=== PATIENT | female | born 1995 | race Caucasian/White ===

== ENCOUNTER 2018-08-04 11:47 | Emergency (ER) | payer SELFPAY ==
[2018-08-04 12:14] VITALS: TEMP 97.9; BMI 23.0
[2018-08-04] MEDS ORDERED: ACETAMINOPHEN 1000 MG/100 ML VIAL (NON FORMULARY) IVPB ONE (13:12)
[2018-08-04] MEDS ORDERED: SODIUM CHLORIDE 1,000 ML IV ONE (13:12)
[2018-08-04] MEDS ORDERED: METOCLOPRAMIDE HCL INJECTION 10 MG/2 ML VIAL IVPUSH ONE (13:12)
[2018-08-04] MEDS ORDERED: FAMOTIDINE 20 MG/50 ML IVPB 20 MG/50 ML MG IVPB ONE (13:24)
--- NOTE | 2018-08-04 13:33 | PDOC ---
History of Present Illness - General Chief Complaint: Nausea/Vomiting Stated Complaint: SYNCOPE ABD PAIN Time Seen by Provider: 08/04/18 12:10 - History of Present Illness Initial Comments: 08/04/18 13:27 22F w/ pmhx of chronic marijuana/opioid abuse presents with 5-6 day history of nausea, vomiting, abdominal pain. She admits to having at least 6 vomiting episodes over the past 5 days and passing out 3 times. She also admits to "15 out of 10" abdominal pain. Last BM was about 5 days ago. Pt states she usually takes 16- 10 mg tablets of Percocet a day and also smokes marijuana daily. She denies IV drug use. Of note, she recently went to [facility] twice this week for the same symptoms and was given Pepcid for her symptoms. She is also requesting to go to detox for opioid withdrawal. She has been to [facility] for detox in the past. Admits to chills, and cold sweats. Denies fever, headache, chest pain, sob, seizures, tongue biting. PMHx: gastritis, chronic marijuana/opioid user PSHx: buttock lift FHx: none Social: Tobacco- 4 cigarettes a day Alcohol- Last drink 1 month ago Rec Drug- As per HPI Pt lives at home alone in an apartment. Job: [employer] 08/04/18 13:33 08/04/18 13:36 Past History - Travel Traveled outside of the country in the last 30 days: No - Past Medical History Allergies/Adverse Reactions: Allergies Allergy/AdvReac Type Severity Reaction Status Date / Time No Known Allergies Allergy Verified 05/24/16 13:10 Home Medications: Ambulatory Orders NK [No Known Home Medication] 01/20/15 Anemia: No Asthma: No Cancer: No Cardiac Disorders: No CVA: No COPD: No CHF: No Diabetes: No GI Disorders: No Disorders: No HTN: No Hypercholesterolemia: No Kidney Stones: No Liver Disease: No Seizures: No Thyroid Disease: No - Surgical History Abdominal Surgery: No Appendectomy: No Cardiac Surgery: No Cholecystectomy: No Lung Surgery: No Neurologic Surgery: No Orthopedic Surgery: No - Reproductive History PID: No - Suicide/Smoking/Psychosocial Hx Smoking History: Never smoked Have you smoked in the past 12 months: Yes Number of Cigarettes Smoked Daily: 2 'Breaking Loose' booklet given: 05/24/16 Hx Alcohol Use: No Drug/Substance Use Hx: Yes (daily marijuana) Substance Use Type: Alcohol, Cocaine, Heroin, Marijuana, Opiates Hx Substance Use Treatment: No Review of Systems - Review of Systems Able to Perform ROS?: Yes Constitutional: Yes: Chills, Loss of Appetite. No: Fever, Unintentional Wgt. Loss Respiratory: No: Shortness of Breath, SOB with Exertion Cardiac (ROS): No: Chest Pain, Lightheadedness ABD/GI: Yes: Constipated, Nausea, Poor Appetite, Poor Fluid Intake, Vomiting, Abdominal cramping. No: Abdominal Distended, Blood Streaked Bowels, Diarrhea, Rectal Bleeding : No: Burning, Dysuria, Discharge, Hematuria, Incontinence Neurological: Yes: Headache, Dizziness Psychiatric: Yes: Anxiety, Depression *Physical Exam - Vital Signs Last Vital Signs Temp Pulse Resp BP Pulse Ox 97.9 F 80 16 112/76 99 08/04/18 12:11 08/04/18 12:11 08/04/18 12:11 08/04/18 12:11 08/04/18 12:11 - Physical Exam General Appearance: Yes: Nourished HEENT: positive: EOMI, STAR, Normal Voice, Symmetrical Neck: positive: Supple. negative: Lymphadenopathy (R), Lymphadenopathy (L) Respiratory/Chest: positive: Lungs Clear, Normal Breath Sounds Cardiovascular: positive: Regular Rhythm, Regular Rate, S1, S2 Vascular Pulses: Dorsalis-Pedis (R): 2+, Doralis-Pedis (L): 2+ Musculoskeletal: negative: CVA Tenderness Extremity: positive: Normal Range of Motion Integumentary: positive: Normal Color Neurologic: positive: operating system programmer II-XII NML intact, Fully Oriented, Alert ED Treatment Course - LABORATORY CBC & Chemistry Diagram: 08/04/18 14:00 08/04/18 14:00 Medical Decision Making - Medical Decision Making 08/04/18 13:42 Gastroparesis, ddx includes drug use, gastroenteritis, pancreatitis -CBC, CMP, Mg, lipase, b-HCG, EKG, NS @ 1L, Reglan, Tylenol, 08/04/18 13:44 08/04/18 16:05 -Lab work wnl -VS stable dispo -transfer to [facility] for opioid detox *DC/Admit/Observation/Transfer Diagnosis at time of Disposition: Opioid dependence with withdrawal - Discharge Dispostion Disposition: HOME Condition at time of disposition: Good - Referrals - Patient Instructions Printed Discharge Instructions: DI for Opioid Addiction Additional Instructions: You were seen in the ED for complaints of nausea, vomiting, abdominal pain. In the ED you were evaluated with opioid withdrawal. Your lab results were normal. There does not appear to be an acute need for immediate hospitalization. You are being sent to [facility] for opioid detox. You are advised to follow up with your primary care physician within 1 week. Return to the ED immediately if you experience persistent nausea, vomiting, fainting episodes, persistent shortness of breath, chest pain. - Post Discharge Activity
[2018-08-04 14:11] LABS: BASO % 0.3 % (0-2.0); HEMATOCRIT 41.2 % (32.4-45.2); LYMPH % 20.8 % (8-40); MCH 33.9 pg (25.7-33.7); MCHC 33.9 g/dl (32.0-36.0); MEAN CELL VOLUME 99.9 fl (80-96); MEAN PLT VOLUME 7.3 fl (7.5-11.1); MONO % 7.3 % (3.8-10.2); NEUT % 71.6 % (42.8-82.8); PLATELET COUNT 291 K/MM3 (134-434); RBC 4.12 M/mm3 (3.60-5.2); RDW 13.5 % (11.6-15.6); WHITE BLOOD COUNT 6.5 K/mm3 (4.0-10.0)
[2018-08-04] MEDS ORDERED: morphine CARPU-JECT 4 MG/1 ML DISP.SYRIN IVPUSH ONE (14:21)
--- NOTE | 2018-08-04 14:23 | PDOC ---
Attending Attestation - Resident Resident Name: Lizet Espino - ED Attending Attestation I have performed the following: I have examined & evaluated the patient, The case was reviewed & discussed with the resident, I agree w/resident's findings & plan - HPI HPI: 08/04/18 14:21 22-year-old female with history of substance abuse including opiates and marijuana presents with intractable nausea/vomiting and epigastric discomfort, inability to tolerate by mouth. Last Percocet use was this morning in the setting of withdrawal symptoms, last marijuana use was 3 or 4 days ago. Has had similar symptoms in the past, has had detox admissions in the past. - Physicial Exam PE: 08/04/18 14:22 Vitals within normal limits Alert, tearful No jaundice or pallor Heart is regular, lungs are clear Abdomen is soft and nondistended, epigastric tenderness to palpation without guarding or rebound Neurologically intact - Medical Decision Making 08/04/18 14:22 22-year-old female with history of polysubstance abuse presents with intractable nausea/vomiting/epigastric pain, question gastroparesis versus gastritis versus pancreatitis. No evidence of withdrawal at this time, hemodynamically stable. Labs, urinalysis IV fluids, antiemetics, pain control Requesting detox, if symptoms improved medically, we'll refer to [facility] 08/04/18 15:31 labs wnl, including lipase and electrolytes. feels better, no withdrawal sxs at this time, and tolerating liquids. will speak with [facility] re: admission.
[2018-08-04 14:46] LABS: ALBUMIN 3.9 g/dl (3.4-5.0); ALK PHOS 44 U/L (45-117); ANION GAP 8 MMOL/L (8-16); BILIRUBIN,TOTAL 0.8 mg/dL (0.2-1); BLOOD UREA NITROGEN 8 mg/dL (7-18); CALCIUM 8.7 mg/dL (8.5-10.1); CHLORIDE 110 mmol/L (98-107); CO2 24 mmol/L (21-32); CREATININE 0.5 mg/dL (0.55-1.3); GLUCOSE,RANDOM 101 mg/dL (74-106); LIPASE 149 U/L (73-393); POTASSIUM 3.7 mmol/L (3.5-5.1); SGOT/AST 11 U/L (15-37); SGPT/ALT 14 U/L (13-61); SODIUM 143 mmol/L (136-145); TOT PROT 6.7 g/dl (6.4-8.2)
[2018-08-04 15:10] LABS: URINE APPEARANCE CLOUDY; URINE BILIRUBIN NEGATIVE (<2.0 mg/dL); URINE COLOR YELLOW; URINE GLUCOSE (UA) NEGATIVE (NEGATIVE); URINE KETONE 1+ (NEGATIVE); URINE LEUK ESTERASE NEGATIVE (NEGATIVE); URINE NITRITE NEGATIVE (NEGATIVE); URINE PROTEIN NEGATIVE (NEGATIVE); URINE UROBILINOGEN NEGATIVE mg/dL (0.2-1.0)
[2018-08-04 15:38] LABS: EPI CELLS MANY /HPF (FEW); URINE MUCUS MODERATE
[2018-08-04 16:35] VITALS: BP 111/76; PULSE 68
== END 2018-08-04 16:26 | disposition home or self-care (01) ==
LOC: JER 11:47
PROC: 3E0337Z Introduction of Electrolytic and Water Balance Substance into Peripheral Vein, Percutaneous Approach (ICD-10-PCS; principal; 2018-08-04)
PROC: 3E033GC Introduction of Other Therapeutic Substance into Peripheral Vein, Percutaneous Approach (ICD-10-PCS; 2018-08-04)
PROC: 3E033GC Introduction of Other Therapeutic Substance into Peripheral Vein, Percutaneous Approach (ICD-10-PCS; 2018-08-04)
PROC: 3E033NZ Introduction of Analgesics, Hypnotics, Sedatives into Peripheral Vein, Percutaneous Approach (ICD-10-PCS; 2018-08-04)
PROC: 3E033NZ Introduction of Analgesics, Hypnotics, Sedatives into Peripheral Vein, Percutaneous Approach (ICD-10-PCS; 2018-08-04)
DX: F11.23 Opioid dependence with withdrawal (principal); F12.10 Cannabis abuse, uncomplicated; Z87.09 Personal history of other diseases of the respiratory system
CPT/HCPCS: 36415; 80053; 81003; 81015; 83690; 83735; 84703; 85025; 99281-25; J0131; J7030

== ENCOUNTER 2018-08-04 17:33 | Inpatient (IN) | payer OTHER ==
[2018-08-04 20:34] VITALS: BMI 22.6
--- NOTE | 2018-08-04 20:54 | HP ---
COWS - Scale Resting Pulse: 0= [place] 80 or Below Sweatin= Chills/Flushing Restless Observation: 3= Extraneous Movement Pupil Size: 0= Normal to Room Light Bone or Joint Aches: 2= Severe Diffuse Aches Runny Nose/ Eye Tearin= Nasal Congestion GI Upset > 30mins: 3= Vomiting/Diarrhea Tremor Observation: 1= Tremor [place], Not Seen Yawning Observation: 2= >3x During Session Anxiety or Irritability: 2=Irritable/Anxious Goose Flesh Skin: 3=Piloerection COWS Score: 18 Admission ROS [facility] Chief Complaint: WITHDRAWAL SYMPTOMS Allergies/Adverse Reactions: Allergies Allergy/AdvReac Type Severity Reaction Status Date / Time No Known Allergies Allergy Verified 05/24/16 13:10 History of Present Illness: 22 Y.O. WOMAN WITH AN EXTENSIVE HISTORY OF PERCOCET AND MARIJUANA DEPENDENCE IS HERE FOR DETOX. SHE HAS HAD MULTIPLE ADMISSIONS FOR DETOX WITH THE LAST BEING . DOES NOT HAVE A SIGNIFICANT PERIOD OF ILLICIT DRUG ABSTINENCE. SHE WAS EVALUATED EARLIER TODAY AT [facility] ER FOR INTRACTABLE NAUSEA AND VOMITING; SHE WAS MEDICALLY CLEARED FOR ADMISSION TO DETOX. Exam Limitations: No Limitations - Ebola screening Have you traveled outside of the country in the last 21 days: No Have you had contact with anyone from an Ebola affected area: No Have you been sick,other than usual withdrawal symptoms: No Do you have a fever: No - Review of Systems Constitutional: Chills, Loss of Appetite, Night Sweats, Unintentional Wgt. Loss EENT: reports: Tearing, Nose Congestion Respiratory: reports: No Symptoms reported Cardiac: reports: Lightheadedness GI: reports: Diarrhea, Nausea, Vomiting : reports: No Symptoms Reported Musculoskeletal: reports: No Symptoms Reported Integumentary: reports: No Symptoms Reported Neuro: reports: No Symptoms reported Endocrine: reports: No Symptoms Reported Hematology: reports: Anemia (H/O VLAD) Psychiatric: reports: Anxious, Depressed Other Systems: Reviewed and Negative Patient History - Patient Medical History Hx Anemia: No Hx Asthma: No Hx Chronic Obstructive Pulmonary Disease (COPD): No Hx Cancer: No Hx Cardiac Disorders: No Hx Congestive Heart Failure: No Hx Hypertension: No Hx Hypercholesterolemia: No Hx Pacemaker: No HX Cerebrovascular Accident: No Hx Seizures: No Hx Diabetes: No Hx Gastrointestinal Disorders: No Hx Liver Disease: No Hx Genitourinary Disorders: No Hx Sexually Transmitted Disorders: No Hx Renal Disease (ESRD): No Hx Thyroid Disease: No Hx Human Immunodeficiency Virus (HIV): No Hx Hepatitis C: No Hx Depression: No Hx Suicide Attempt: No Hx Bipolar Disorder: No Hx Schizophrenia: No - Patient Surgical History Past Surgical History: Yes Hx Neurologic Surgery: No Hx Cataract Extraction: No Hx Cardiac Surgery: No Hx Lung Surgery: No Hx Breast Surgery: No Hx Breast Biopsy: No Hx Abdominal Surgery: No Hx Appendectomy: No Hx Cholecystectomy: No Hx Genitourinary Surgery: No Hx Section: No Hx Orthopedic Surgery: No Other Surgical History: LIPOSUCTION TO ABDOMEN 2015 Anesthesia Reaction: No - PPD History Previous Implant?: Yes Documented Results: Negative w/proof Implanted On Prior R Admission?: Yes Date: 05/26/16 Results: 0 mm PPD to be Administered?: Yes - Reproductive History Patient is a Female of Child Bearing Age (11 -55 yrs old): Yes Last Menstrual Period: 05/09/16 Patient : No - Smoking Cessation Smoking history: Never smoked Have you smoked in the past 12 months: Yes Aproximately how many cigarettes per day: 8 Hx Chewing Tobacco Use: No Initiated information on smoking cessation: Yes 'Breaking Loose' booklet given: 08/04/18 - Substance & Tx. History Hx Alcohol Use: No Hx Substance Use: Yes Substance Use Type: Opiates Hx Substance Use Treatment: Yes (DETOX: 05/2016) - Substances Abused PERCOCET Route: Oral Frequency: Daily Amount used: 180MG Age of first use: 12 Date of Last Use: 08/03/18 Marijuana/Hashish Route: Inhalation Frequency: Daily Amount used: $100 Age of first use: 12 Date of Last Use: 08/02/18 Family Disease History - Family Disease History Family Disease History: Other: Sister (OPIOID ADDICTION) Admission Physical Exam BHS - Vital Signs Vital Signs: Vital Signs - 24 hr 08/04/18 20:31 Temperature 100.0 F H Pulse Rate 72 Respiratory 18 Rate Blood Pressure 109/69 - Physical General Appearance: Yes: Irritable, Anxious HEENTM: Yes: Hearing grossly Normal, Normal ENT Inspection, Normocephalic, Normal Voice, Rhinorrhea Respiratory: Yes: Chest Non-Tender, Lungs Clear, Normal Breath Sounds, No Respiratory Distress, No Accessory Muscle Use Neck: Yes: No masses,lesions,Nodules Breast: Yes: Breast Exam Deferred Cardiology: Yes: Regular Rhythm, Regular Rate Abdominal: Yes: Normal Bowel Sounds, Non Tender, Flat Genitourinary: Yes: Other (NO COMPLAINTS REPORTED) Back: Yes: Normal Inspection Musculoskeletal: Yes: full range of Motion, Gait Steady Extremities: Yes: Normal Capillary Refill, Normal Inspection, Normal Range of Motion, Non-Tender Neurological: Yes: Alert, Normal Mood/Affect, Normal Response Integumentary: Yes: Normal Color, Dry, Warm Lymphatic: Yes: Within Normal Limits - Diagnostic (1) GERD (gastroesophageal reflux disease) Current Visit: Yes Status: Acute (2) Gastritis Current Visit: Yes Status: Acute (3) Nausea & vomiting Current Visit: Yes Status: Acute (4) Cannabis dependence Current Visit: Yes Status: Chronic (5) Nicotine dependence Current Visit: Yes Status: Chronic Qualifiers: Nicotine product type: cigarettes Substance use status: uncomplicated Qualified Code(s): F17.210 - Nicotine dependence, cigarettes, uncomplicated (6) Opioid dependence with withdrawal Current Visit: Yes Status: Chronic Cleared for Admission [facility] - Detox or Rehab [facility] Level of Care: Medically Managed Detox Regimen/Protocol: Methadone [facility] Breath Alcohol Content Breath Alcohol Content: 0 Urine Pregancy Test - Result Urine Test Results: Negative- NO Line Present Urine Drug Screen - Results Drug Screen Negative: No Urine Drug Screen Results: THC-Marijuana, OPI-Opiates, OXY-Oxycodone
[2018-08-04] MEDS ORDERED: MAGNESIUM HYDROX 2400MG/30ML ORAL SUSPENSION 30 ML CUP PO PRN (21:01)
[2018-08-04] MEDS ORDERED: MAGNESIUM CITRATE 300 ML BOTTLE PO PRN (21:01)
[2018-08-04] MEDS ORDERED: guaiFENesin/D-METHORPHAN HB 10 ML UNIT-DOSE CUPS PO PRN (21:01)
[2018-08-04] MEDS ORDERED: ACETAMINOPHEN 325 MG TABLET (FP) PO PRN (21:01)
[2018-08-04] MEDS ORDERED: MAG HYDROX/AL HYDROX/SIMETH 30 ML UNIT-DOSE CUP PO PRN (21:01)
[2018-08-04] MEDS ORDERED: MENTHOL/PHENOL 1 EACH UD MM PRN (21:01)
[2018-08-04] MEDS ORDERED: NICOTINE POLACRILEX 2 MG GUM BC PRN (21:01)
[2018-08-04] MEDS ORDERED: IBUPROFEN 400 MG TABLET (FP) PO PRN (21:01)
[2018-08-04] MEDS ORDERED: P-EPHED 60MG/TRIPROLIDI 2.5MG TABLET PO PRN (21:01)
[2018-08-04] MEDS ORDERED: LOPERAMIDE HCL 2 MG CAPSULE PO PRN (21:01)
[2018-08-04] MEDS ORDERED: hydrOXYzine PAMOATE 50 MG CAPSULE (FP) PO PRN (21:01)
[2018-08-04] MEDS ORDERED: TRIMETHOBENZAMIDE HCL 200MG/2ML INJ IM ONE (21:04)
[2018-08-04] MEDS ORDERED: diphenhydrAMINE HCL 25 MG CAPSULE (FP) PO PRN (21:04)
[2018-08-04] MEDS ORDERED: TRIMETHOBENZAMIDE HCL 200MG/2ML INJ IM PRN (21:10)
[2018-08-04] MEDS ORDERED: METHADONE HCL 10 MG TABLET (FOR DETOX USE ONLY) PO ONE ×2 (21:30→23:00)
[2018-08-04] MEDS ORDERED: MELATONIN 5 MG TABLETS PO PRN (22:00)
[2018-08-04] MEDS: diazePAM 5 MG TABLET PO PRN (23:13)
[2018-08-04] MEDS: THIAMINE HCL 100 MG TABLET (FP) PO SCH (23:15)
[2018-08-05 00:35] LABS: URINE APPEARANCE SLCLOUDY; URINE BILIRUBIN NEGATIVE (<2.0 mg/dL); URINE COLOR LTYELLOW; URINE GLUCOSE (UA) NEGATIVE (NEGATIVE); URINE KETONE 1+ (NEGATIVE); URINE LEUK ESTERASE NEGATIVE (NEGATIVE); URINE NITRITE NEGATIVE (NEGATIVE); URINE PROTEIN NEGATIVE (NEGATIVE); URINE UROBILINOGEN NEGATIVE mg/dL (0.2-1.0)
[2018-08-05 00:40] LABS: EPI CELLS MODERATE /HPF (FEW); URINE BACTERIA RARE /hpf (NONE SEEN); URINE MUCUS RARE
[2018-08-05] MEDS: diazePAM 5 MG TABLET PO PRN ×2 (03:14→22:29)
--- NOTE | 2018-08-05 08:32 | CONSULT ---
[facility] Psychiatric Consult - Data Date of interview: 08/05/18 Admission source: [facility] Identifying data: This is a 22 years old female, single, living alone, unemployed, with no income, with no psychiatric hospitalization history, with history of Opioids and Cannabis dependence, reports withdrawal symptoms and seeking detox. Denies suicidal, homicidal history Substance Abuse History: - Smoking Cessation. Smoking history: Never smoked. Have you smoked in the past 12 months: Yes. Aproximately how many cigarettes per day: 8. Hx Chewing Tobacco Use: No. Initiated information on smoking cessation: Yes. 'Breaking Loose' booklet given: 08/04/18. - Substance & Tx. History. Hx Alcohol Use: No. Hx Substance Use: Yes. Substance Use Type: Opiates. Hx Substance Use Treatment: Yes (DETOX: 05/2016). - Substances Abused. PERCOCET. Route: Oral. Frequency: Daily. Amount used: 180MG. Age of first use: 12. Date of Last Use: 08/03/18. Marijuana/Hashish. Route : Inhalation. Frequency: Daily. Amount used: $100. Age of first use: 12. Date of Last Use: 08/02/18 Medical History: Denies significant medical problems Psychiatric History: Patioent reports hsitory of depression and anxiety, reports insomnia, denies suicidal and homicidal history , no psychiatric hospitalization history as well. Asking for medicastions aid for insomnia. Rep[ orts weight loss history Physical/Sexual Abuse/Trauma History: Unclear Additional Comment: Seroquel 50mg po qhs Mental Status Exam - Mental Status Exam Alert and Oriented to: Time, Person Cognitive Function: Fair Patient Appearance: Well Groomed Mood: Anxious Affect: Mood Congruent Patient Behavior: Cooperative Speech Pattern: Appropriate Voice Loudness: Normal Thought Process: Goal Oriented Thought Disorder: Not Present, Being Controlled Hallucinations: Denies Suicidal Ideation: Denies Homicidal Ideation: Denies Insight/Judgement: Fair Sleep: Difficulty falling asleep Appetite: Weight loss Muscle strength/Tone: Normal Gait/Station: Normal Additional Comments: Seroquel 50mg po qhs Psychiatric Findings - Problem List ([place] 1, 2,3) (1) Cannabis dependence Current Visit: Yes Status: Chronic (2) Nicotine dependence Current Visit: Yes Status: Chronic Qualifiers: Nicotine product type: cigarettes Substance use status: uncomplicated Qualified Code(s): F17.210 - Nicotine dependence, cigarettes, uncomplicated (3) Opioid dependence with withdrawal Current Visit: Yes Status: Chronic (4) Alcohol dependence with uncomplicated withdrawal Current Visit: No Status: Chronic (5) Opioid dependence Current Visit: No Status: Chronic (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
[2018-08-05] MEDS ORDERED: METHADONE HCL 10 MG TABLET (FOR DETOX USE ONLY) PO ONE (10:00)
[2018-08-05] MEDS ORDERED: ONDANSETRON *ODT* 4 MG TABLET SL PRN (10:09)
[2018-08-05] MEDS: PRENATAL VITAMINS W/ FOLIC ACID TABLET (FP) PO SCH (10:31)
[2018-08-05] MEDS: RANITIDINE HCL 150 MG TABLET (FP) PO SCH (10:31)
[2018-08-05] MEDS: NICOTINE 14 MG/24 HOURS TOPICAL PATCH TD SCH (10:32)
--- NOTE | 2018-08-05 11:19 | PN ---
BHS COWS - Scale Resting Pulse: 0= [place] 80 or Below Sweatin=Flushed/Facial Moisture Restless Observation: 1= Difficult to Sit Still Pupil Size: 0= Normal to Room Light Bone or Joint Aches: 1= Mild Discomfort Runny Nose/ Eye Tearin= Runny Nose/Eyes GI Upset > 30mins: 0= None Tremor Observation of Outstretched Hands: 2= Slight Tremor Visible Yawning Observation: 2= >3x During Session Anxiety or Irritability: 2=Irritable/Anxious Goose Flesh Skin: 0=Smooth Skin COWS Score: 12 BHS Progress Note (SOAP) Subjective: shakes sweats loss of appetite interrupted sleep agitation Objective: 08/05/18 11:19 Vital Signs Temperature 98.8 F 08/05/18 09:39 Pulse Rate 76 08/05/18 09:39 Respiratory Rate 18 08/05/18 09:39 Blood Pressure 115/72 08/05/18 09:39 O2 Sat by Pulse Oximetry (%) Laboratory Tests 08/04/18 23:08 Urine Color Ltyellow Urine Appearance Slcloudy Urine pH 6.0 Ur Specific [place] 1.017 Urine Protein Negative Urine Glucose (UA) Negative Urine Ketones 1+ H Urine Blood 2+ H Urine Nitrite Negative Urine Bilirubin Negative Urine Urobilinogen Negative Ur Leukocyte Esterase Negative Urine WBC (Auto) 1 Urine RBC (Auto) 2 Ur Epithelial Cells Moderate Urine Bacteria Rare Urine Mucus Rare pt states she has her menstruation rest of labs pending aaox3 ambulating no acute distress Assessment: 08/05/18 11:20 withdrawal sx Plan: continue detox increase fluids labs pending
[2018-08-05 14:19] LABS: HEMOGLOBIN 13.2 GM/dL (10.7-15.3); MCH 34.1 pg (25.7-33.7); MCHC 33.8 g/dl (32.0-36.0); MEAN CELL VOLUME 100.9 fl (80-96); MEAN PLT VOLUME 7.5 fl (7.5-11.1); PLATELET COUNT 263 K/MM3 (134-434); RBC 3.87 M/mm3 (3.60-5.2); RDW 13.8 % (11.6-15.6); WHITE BLOOD COUNT 7.1 K/mm3 (4.0-10.0)
[2018-08-05 14:51] LABS: ALBUMIN 3.8 g/dl (3.4-5.0); ALK PHOS 41 U/L (45-117); ANION GAP 8 MMOL/L (8-16); BLOOD UREA NITROGEN 12 mg/dL (7-18); CALCIUM 8.8 mg/dL (8.5-10.1); CHLORIDE 108 mmol/L (98-107); CO2 26 mmol/L (21-32); CREATININE 0.6 mg/dL (0.55-1.3); GLUCOSE,RANDOM 82 mg/dL (74-106); POTASSIUM 3.5 mmol/L (3.5-5.1); SGOT/AST 9 U/L (15-37); SGPT/ALT 12 U/L (13-61); SODIUM 142 mmol/L (136-145); TOT PROT 6.2 g/dl (6.4-8.2)
[2018-08-05] MEDS ORDERED: QUEtiapine FUMARATE 50 MG TABLET PO SCH (22:00)
[2018-08-05] MEDS: THIAMINE HCL 100 MG TABLET (FP) PO SCH (22:29)
[2018-08-06 02:42] LABS: RPR NONREACTIVE (NONREACTIVE)
[2018-08-06] MEDS: diazePAM 5 MG TABLET PO PRN ×2 (07:27→12:40)
[2018-08-06 07:31] VITALS: TEMP 98.4
[2018-08-06] MEDS ORDERED: METHADONE HCL 5 MG TABLET (FOR DETOX USE ONLY) PO ONE (10:00)
[2018-08-06] MEDS: NICOTINE 14 MG/24 HOURS TOPICAL PATCH TD SCH (10:09)
[2018-08-06] MEDS: RANITIDINE HCL 150 MG TABLET (FP) PO SCH (10:11)
[2018-08-06] MEDS: PRENATAL VITAMINS W/ FOLIC ACID TABLET (FP) PO SCH (10:11)
--- NOTE | 2018-08-06 11:47 | PN ---
BHS COWS - Scale Resting Pulse: 0= [place] 80 or Below Sweatin=Flushed/Facial Moisture Restless Observation: 1= Difficult to Sit Still Pupil Size: 0= Normal to Room Light Bone or Joint Aches: 1= Mild Discomfort Runny Nose/ Eye Tearin= Nasal Congestion GI Upset > 30mins: 0= None Tremor Observation of Outstretched Hands: 2= Slight Tremor Visible Yawning Observation: 2= >3x During Session Anxiety or Irritability: 2=Irritable/Anxious Goose Flesh Skin: 0=Smooth Skin COWS Score: 11 S Progress Note (SOAP) Subjective: agitation anxiety irritable body aches Objective: 08/06/18 11:46 Vital Signs Temperature 98.4 F 08/06/18 10:03 Pulse Rate 68 08/06/18 10:03 Respiratory Rate 18 08/06/18 10:03 Blood Pressure 109/67 08/06/18 10:03 O2 Sat by Pulse Oximetry (%) Laboratory Tests 08/04/18 08/05/18 08/05/18 23:08 07:00 07:00 WBC 7.1 RBC 3.87 Hgb 13.2 Hct 39.0 MCV 100.9 H MCH 34.1 H MCHC 33.8 RDW 13.8 Plt Count 263 MPV 7.5 Sodium 142 Potassium 3.5 Chloride 108 H Carbon Dioxide 26 Anion Gap 8 BUN 12 Creatinine 0.6 Creat Clearance w eGFR > 60 Random Glucose 82 Calcium 8.8 Total Bilirubin 1.0 AST 9 L ALT 12 L Alkaline Phosphatase 41 L Total Protein 6.2 L Albumin 3.8 Urine Color Ltyellow Urine Appearance Slcloudy Urine pH 6.0 Ur Specific [place] 1.017 Urine Protein Negative Urine Glucose (UA) Negative Urine Ketones 1+ H Urine Blood 2+ H Urine Nitrite Negative Urine Bilirubin Negative Urine Urobilinogen Negative Ur Leukocyte Esterase Negative Urine WBC (Auto) 1 Urine RBC (Auto) 2 Ur Epithelial Cells Moderate Urine Bacteria Rare Urine Mucus Rare RPR Titer HIV 1&2 Antibody Screen HIV P24 Antigen 08/05/18 07:00 WBC RBC Hgb Hct MCV MCH MCHC RDW Plt Count MPV Sodium Potassium Chloride Carbon Dioxide Anion Gap BUN Creatinine Creat Clearance w eGFR Random Glucose Calcium Total Bilirubin AST ALT Alkaline Phosphatase Total Protein Albumin Urine Color Urine Appearance Urine pH Ur Specific [place] Urine Protein Urine Glucose (UA) Urine Ketones Urine Blood Urine Nitrite Urine Bilirubin Urine Urobilinogen Ur Leukocyte Esterase Urine WBC (Auto) Urine RBC (Auto) Ur Epithelial Cells Urine Bacteria Urine Mucus RPR Titer Nonreactive HIV 1&2 Antibody Screen Negative HIV P24 Antigen Negative aaox3 ambulating no acute distress Assessment: 08/06/18 11:46 withdrawal sx Plan: continue detox increase fluids
--- NOTE | 2018-08-06 13:42 | PN ---
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 Pt was asked to stay and complete; she insisted on leaving. Pt signed out AMA.
[2018-08-06 13:54] VITALS: BP 122/78; PULSE 97
[2018-08-07] MEDS ORDERED: METHADONE HCL 5 MG TABLET (FOR DETOX USE ONLY) PO ONE (10:00)
[2018-08-08] MEDS ORDERED: METHADONE HCL 10 MG TABLET (FOR DETOX USE ONLY) PO ONE (10:00)
[2018-08-09] MEDS ORDERED: METHADONE HCL 5 MG TABLET (FOR DETOX USE ONLY) PO ONE (06:00)
== END 2018-08-06 14:09 | disposition left against medical advice (07) | DRG 770 ==
LOC: YASAS 17:33 → Y6N 21:26
PROC: HZ2ZZZZ Detoxification Services for Substance Abuse Treatment (ICD-10-PCS; principal; 2018-08-04)
DX: F11.23 Opioid dependence with withdrawal (principal); F12.20 Cannabis dependence, uncomplicated; F17.210 Nicotine dependence, cigarettes, uncomplicated; F19.280 Other psychoactive substance dependence with psychoactive substance-induced anxiety disorder; F19.282 Other psychoactive substance dependence with psychoactive substance-induced sleep disorder; K21.9 Gastro-esophageal reflux disease without esophagitis; R11.2 Nausea with vomiting, unspecified
CPT/HCPCS: 36415; 80053; 81003; 81015; 85027; 86593; 87389; Q0162

== ENCOUNTER 2018-08-23 11:42 | Emergency (ER) | payer OTHER ==
--- NOTE | 2018-08-23 11:58 | PDOC ---
History of Present Illness - General Chief Complaint: Pain Stated Complaint: PAIN Time Seen by Provider: 08/23/18 11:57 History Source: Patient - History of Present Illness Initial Comments: 08/23/18 12:05 The patient is a 22 year old female with a PMH of polysubstance abuse who presents to our ED c/o 1 week h/o worsening abdominal pain. Pain is constant, 10/10, localized to her epigastrium and has no relation to eating, breathing or movement. Notes excessive alcohol on Friday prior to onset of her abdominal pain. States she is scheduled for an endoscopy tomorrow with a GI in [place]. States she has been taking Percocet x2 with minimal relief of her pain. States she has not tolerated solid PO intake for 1 week. Cannot recall last bowel movement. NKDA Surgical: none PMD: none- will refer to IM resident clinic Social: daily marijuana, 5-6 cigarettes daily, weekly alcohol As per EMR patient was last evaluated in our ED on 08/04/18 for similar complaints at which time lipase, CMP, CBC were normal and patient was transferred to [facility] for opioid detoxification. Patient states she checked herself out of [facility] after her stomach pain resolved. Past History - Past Medical History Allergies/Adverse Reactions: Allergies Allergy/AdvReac Type Severity Reaction Status Date / Time No Known Allergies Allergy Verified 08/23/18 11:54 Home Medications: Ambulatory Orders Famotidine [Pepcid -] 20 mg PO DAILY 08/04/18 Quetiapine Fumarate [Seroquel -] 50 mg PO HS #30 tablet 08/05/18 Quetiapine Fumarate [Seroquel] 100 mg PO HS #30 tablet 08/05/18 Sertraline HCl [Zoloft] 100 mg PO DAILY #30 tablet 08/05/18 Anemia: No Asthma: No Cancer: No Cardiac Disorders: No CVA: No COPD: No CHF: No Diabetes: No GI Disorders: No Disorders: No HTN: No Hypercholesterolemia: No Kidney Stones: No Liver Disease: No Seizures: No Thyroid Disease: No - Surgical History Abdominal Surgery: No Appendectomy: No Cardiac Surgery: No Cholecystectomy: No Lung Surgery: No Neurologic Surgery: No Orthopedic Surgery: No - Reproductive History PID: No - Suicide/Smoking/Psychosocial Hx Smoking History: Never smoked Have you smoked in the past 12 months: Yes Number of Cigarettes Smoked Daily: 8 'Breaking Loose' booklet given: 08/04/18 Hx Alcohol Use: No Drug/Substance Use Hx: Yes Substance Use Type: Opiates Hx Substance Use Treatment: Yes (DETOX: 05/2016) Review of Systems - Review of Systems Constitutional: No: Chills, Fever Respiratory: No: Cough, Shortness of Breath Cardiac (ROS): No: Chest Pain, Lightheadedness, Palpitations, Syncope ABD/GI: Yes: Nausea, Vomiting. No: Constipated, Diarrhea : No: Burning, Dysuria *Physical Exam - Physical Exam General Appearance: Yes: Nourished, Appropriately Dressed, Other (marijuana odor ) HEENT: positive: Normal Voice, Hearing Grossly Normal Neck: positive: Trachea midline, Supple Respiratory/Chest: positive: Lungs Clear, Normal Breath Sounds. negative: Labored Respiration, Rapid RR, Crackles, Wheezing Cardiovascular: positive: S1, S2. negative: JVD, Murmur Vascular Pulses: Dorsalis-Pedis (R): 2+, Doralis-Pedis (L): 2+ Gastrointestinal/Abdominal: positive: Normal Bowel Sounds, Soft, Other ( Epigastric TTP ) ED Treatment Course - LABORATORY CBC & Chemistry Diagram: 08/23/18 12:55 08/23/18 12:55 Medical Decision Making - Medical Decision Making 08/23/18 12:07 22 year old female with h/o polysubstance abuse presents with intractable epigastric pain. No evidence of withdrawal at this time, hemodynamically stable. DDx includes gastroparesis vs. gastritis vs. pancreatitis vs. Will obtain basic labs, Mg, Urine , lipase. GI cocktail for symptomatic relief. Reassess. 08/23/18 13:40 Bedside U/S shows no anterior GB wall thickening (2 mm), 3 mm CBD, no edema, no pericholecystic fluid, no cholelithaisis. Labs pending. 08/23/18 14:14 CBC, CMP unremarkable Urine negative Lipase wnL 08/23/18 14:16 Patient reassesed @ bedside. Pain improved, however continues to c/o of "sour" feeling in her stomach. At this time, clinical suspicion for PUD, gastritis picture. Will give Maalox + Viscous Lido. Reassess. 08/23/18 14:45 Patient symptomatically improved. Family @ bedside. Will discharge home with symptomatic care and strong counseling to attending previously scheduled endoscopy tomorrow. Clinical Impression: Gastritis I discussed the physical exam findings, ancillary test results and final diagnoses with the patient. I answered all of the patient's questions. The patient was satisfied with the care received and felt comfortable with the discharge plan and treatment plan. The patient will return to the Emergency Department with any new, persistent or worsening symptoms. *DC/Admit/Observation/Transfer Diagnosis at time of Disposition: Gastritis - Discharge Dispostion Disposition: HOME Condition at time of disposition: Good Decision to Admit order: No - Referrals Referrals: Juanito Lee MD [Staff Physician] - - Patient Instructions Printed Discharge Instructions: DI for Gastritis Additional Instructions: Please make an appointment with Dr. Jesus Solomon (contact information included) to establish primary care. You can take Maalox or Pepcid for your abdominal pain. It is very important you attend your gastroenterology evaluation tomorrow. Return to the Emergency Department for any new/worsening/concerning symptoms. - Post Discharge Activity
[2018-08-23] MEDS ORDERED: SODIUM CHLORIDE 0.9% 500 ML INFUS.BAG IV ONE (12:08)
[2018-08-23] MEDS ORDERED: FAMOTIDINE 20 MG/50 ML IVPB 20 MG/50 ML MG IVPB ONE ×2 (12:09→12:44)
[2018-08-23] MEDS ORDERED: MAG HYDROX/AL HYDROX/SIMETH -MYLANTA- ORAL SUSPENSION PO ONE (12:09)
[2018-08-23] MEDS ORDERED: MAG HYDROX/AL HYDROX/SIMETH 30 ML UNIT-DOSE CUP ONE (12:20)
[2018-08-23 12:21] VITALS: BMI 23.2
[2018-08-23] MEDS ORDERED: ONDANSETRON 4 MG/2 ML VIAL IVPUSH ONE (12:23)
[2018-08-23] MEDS ORDERED: ONDANSETRON 4 MG/2 ML VIAL ONE (12:44)
[2018-08-23 13:13] LABS: BASO % 0.3 % (0-2.0); EOS % 0.1 % (0-4.5); HEMATOCRIT 41.2 % (32.4-45.2); HEMOGLOBIN 14.4 GM/dL (10.7-15.3); LYMPH % 16.7 % (8-40); MCH 34.6 pg (25.7-33.7); MCHC 34.8 g/dl (32.0-36.0); MEAN CELL VOLUME 99.2 fl (80-96); NEUT % 77.9 % (42.8-82.8); PLATELET COUNT 283 K/MM3 (134-434); RBC 4.15 M/mm3 (3.60-5.2); WHITE BLOOD COUNT 7.2 K/mm3 (4.0-10.0)
[2018-08-23 13:42] LABS: ALBUMIN 4.3 g/dl (3.4-5.0); ALK PHOS 52 U/L (45-117); ANION GAP 8 MMOL/L (8-16); BILIRUBIN,TOTAL 0.6 mg/dL (0.2-1); BLOOD UREA NITROGEN 13 mg/dL (7-18); CALCIUM 9.2 mg/dL (8.5-10.1); CHLORIDE 106 mmol/L (98-107); CO2 26 mmol/L (21-32); CREATININE 0.5 mg/dL (0.55-1.3); GLUCOSE,RANDOM 102 mg/dL (74-106); MAGNESIUM 2.3 mg/dL (1.8-2.4); POTASSIUM 3.8 mmol/L (3.5-5.1); SGOT/AST 22 U/L (15-37); SGPT/ALT 22 U/L (13-61); SODIUM 140 mmol/L (136-145); TOT PROT 7.3 g/dl (6.4-8.2)
[2018-08-23] MEDS ORDERED: LIDOCAINE VISCOUS 2% ORAL/TOP 20 ML UNIT-DOSE CUP MM ONE (14:17)
--- NOTE | 2018-08-23 14:25 | PDOC ---
Attending Attestation - Resident Resident Name: Katya Leeica - ED Attending Attestation I have performed the following: I have examined & evaluated the patient, The case was reviewed & discussed with the resident, I agree w/resident's findings & plan, Exceptions are as noted - HPI HPI: 08/23/18 14:20 22 yo F with h/o substance abuse, recently [facility]. released 10 days. no f/c c /o epigastric pain. did hav n/v last 2 days ago, no longer vomiting but still having pain. LMP few weeks ago not . denies other drug use. has endoscopy scheduled for tomorrow. - Physicial Exam PE: 08/23/18 14:22 awake alert lungs clear bilaterally heart rrr no mrg abd soft mild epigastric ttp. no rebound no guarding. neg mathews's no cva tenderess ext wwp no edema. skin warm and dry nuero alert oriented move all ext gait normal speech clear. - Medical Decision Making 08/23/18 14:23 differential cholecysitis, pancreatitis gastritis, cholelithiasis. plan focused ED ultrsaound ruq, labs lipase. gi cocktail reassess. ucg labs unremarkable. pt refusing maalox with visous lidocaine. focused ED ultrasound ruq gb scanned in two planes. normal wall, no thickening , no edema. no pericholecystic fluid, no stones. neg sonographic mathews's. wall measured 2 mm cbd 3 mm impressions: normal gallbladder. will dc home with fu with gi day following.
[2018-08-23] MEDS ORDERED: LIDOCAINE VISCOUS 2% ORAL/TOP 20 ML UNIT-DOSE CUP ONE (14:50)
[2018-08-23 15:01] VITALS: BP 118/82; PULSE 86; TEMP 98.1
== END 2018-08-23 15:02 | disposition home or self-care (01) ==
LOC: JER 11:42
PROC: 3E033GC Introduction of Other Therapeutic Substance into Peripheral Vein, Percutaneous Approach (ICD-10-PCS; principal; 2018-08-23)
PROC: 3E033GC Introduction of Other Therapeutic Substance into Peripheral Vein, Percutaneous Approach (ICD-10-PCS; 2018-08-23)
PROC: BF42ZZZ Ultrasonography of Gallbladder (ICD-10-PCS; 2018-08-23)
DX: K29.70 Gastritis, unspecified, without bleeding (principal)
CPT/HCPCS: 36415; 76705; 80053; 83690; 83735; 84703; 85025; 96365; 96375; 99283-25

== ENCOUNTER 2018-10-01 14:36 | Inpatient (IN) | payer SELFPAY ==
[2018-10-01 15:31] VITALS: BMI 22.6
--- NOTE | 2018-10-01 16:41 | HP ---
COWS - Scale Resting Pulse: 0= [place] 80 or Below Sweatin=Flushed/Facial Moisture Restless Observation: 1= Difficult to Sit Still Pupil Size: 0= Normal to Room Light Bone or Joint Aches: 2= Severe Diffuse Aches Runny Nose/ Eye Tearin= Runny Nose/Eyes GI Upset > 30mins: 3= Vomiting/Diarrhea Tremor Observation: 2= Slight Tremor Visible Yawning Observation: 2= >3x During Session Anxiety or Irritability: 2=Irritable/Anxious Goose Flesh Skin: 3=Piloerection COWS Score: 19 CIWA Score - Admission Criteria [facility]ASAS Guidelines: Admission for Medically Managed Detox: Requires at least one of the followin. CIWA greater than 12 2. Seizures within the past 24 hours 3. Delirium tremens within the past 24 hours 4. Hallucinations within the past 24 hours 5. Acute intervention needed for co occurring medical disorder 6. Acute intervention needed for co occurring psychiatric disorder 7. Severe withdrawal that cannot be handled at a lower level of care (continued vomiting, continued diarrhea, abnormal vital signs) requiring intravenous medication and/or fluids 8. Admission ROS [facility] - HPI Chief Complaint: I need to be here to detox from percocets. Allergies/Adverse Reactions: Allergies Allergy/AdvReac Type Severity Reaction Status Date / Time No Known Allergies Allergy Verified 10/01/18 16:35 History of Present Illness: Pt is a 22yr old female with a history of perococet dependent seeking detox for treatment. pt states her boyfriend was killed and she picked up the pills again. Exam Limitations: No Limitations - Ebola screening Have you traveled outside of the country in the last 21 days: No Have you had contact with anyone from an Ebola affected area: No Have you been sick,other than usual withdrawal symptoms: No Do you have a fever: No - Review of Systems Constitutional: Chills, Diaphoresis, Loss of Appetite, Night Sweats EENT: reports: Tearing, Nose Congestion Respiratory: reports: No Symptoms reported Cardiac: reports: Lightheadedness GI: reports: Diarrhea, Poor Appetite, Poor Fluid Intake, Vomiting : reports: No Symptoms Reported Musculoskeletal: reports: No Symptoms Reported Integumentary: reports: Flushing, Sweating Neuro: reports: Tingling, Tremors Endocrine: reports: Excessive Sweating, Flushing, Intolerance to Cold, Intolerance to Heat Hematology: reports: No Symptoms Reported Psychiatric: reports: Judgement Intact, Mood/Affect Appropiate, Orientated x3, Agitated, Anxious Other Systems: Reviewed and Negative Patient History - Patient Medical History Hx Anemia: No Hx Asthma: No Hx Chronic Obstructive Pulmonary Disease (COPD): No Hx Cancer: No Hx Cardiac Disorders: No Hx Congestive Heart Failure: No Hx Hypertension: No Hx Hypercholesterolemia: No Hx Pacemaker: No HX Cerebrovascular Accident: No Hx Seizures: No Hx Diabetes: No Hx Gastrointestinal Disorders: No Hx Liver Disease: No Hx Genitourinary Disorders: Yes (gastritis /acid reflux) Hx Sexually Transmitted Disorders: No Hx Renal Disease (ESRD): No Hx Thyroid Disease: No Hx Human Immunodeficiency Virus (HIV): No Hx Hepatitis C: No Hx Depression: Yes Hx Suicide Attempt: No Hx Bipolar Disorder: No Hx Schizophrenia: No - Patient Surgical History Past Surgical History: Yes Hx Neurologic Surgery: No Hx Cataract Extraction: No Hx Cardiac Surgery: No Hx Lung Surgery: No Hx Breast Surgery: No Hx Breast Biopsy: No Hx Abdominal Surgery: No Hx Appendectomy: No Hx Cholecystectomy: No Hx Genitourinary Surgery: No Hx Section: No Hx Orthopedic Surgery: No Other Surgical History: LIPOSUCTION TO ABDOMEN 2015 Anesthesia Reaction: No - PPD History Previous Implant?: Yes Documented Results: Negative w/proof Date: 08/06/18 Results: 0 mm PPD to be Administered?: No - Reproductive History Patient is a Female of Child Bearing Age (11 -55 yrs old): Yes Last Menstrual Period: 09/24/18 Patient : No - Smoking Cessation Smoking history: Never smoked Have you smoked in the past 12 months: Yes Aproximately how many cigarettes per day: 8 Hx Chewing Tobacco Use: No Initiated information on smoking cessation: No - Substance & Tx. History Hx Alcohol Use: No Hx Substance Use: Yes Substance Use Type: Opiates Hx Substance Use Treatment: Yes (last detox 04/2018) Family Disease History - Family Disease History Family Disease History: Other: Sister (OPIOID ADDICTION) Admission Physical Exam BHS - Vital Signs Vital Signs: Vital Signs - 24 hr 10/01/18 15:27 Temperature 97.3 F L Pulse Rate 77 Respiratory 17 Rate Blood Pressure 121/88 - Physical General Appearance: Yes: Appropriately Dressed, Moderate Distress, Tremorous, Irritable, Sweating, Anxious HEENTM: Yes: Normal Voice, Nasal Congestion, Rhinorrhea Respiratory: Yes: Lungs Clear, Normal Breath Sounds, No Respiratory Distress Neck: Yes: No masses,lesions,Nodules Breast: Yes: Within Normal Limits Cardiology: Yes: Regular Rhythm, Regular Rate, S1, S2 Abdominal: Yes: Normal Bowel Sounds, Non Tender, Soft Genitourinary: Yes: Within Normal Limits Back: Yes: Normal Inspection Musculoskeletal: Yes: full range of Motion Extremities: Yes: Normal Capillary Refill, Non-Tender, Tremors Neurological: Yes: Fully Oriented, Alert, Normal Response Integumentary: Yes: Diaphoresis Lymphatic: Yes: Within Normal Limits - Diagnostic (1) GERD (gastroesophageal reflux disease) Current Visit: Yes Status: Chronic Qualifiers: Esophagitis presence: without esophagitis (2) Gastritis Current Visit: Yes Status: Chronic Qualifiers: Gastritis type: unspecified gastritis Chronicity: chronic Gastritis bleeding: without bleeding Qualified Code(s): K29.50 - Unspecified chronic gastritis without bleeding (3) Nausea & vomiting Current Visit: Yes Status: Chronic Qualifiers: Vomiting Intractability: unspecified (4) Cannabis dependence Current Visit: Yes Status: Chronic (5) Nicotine dependence Current Visit: Yes Status: Chronic Qualifiers: Nicotine product type: cigarettes Substance use status: uncomplicated Qualified Code(s): F17.210 - Nicotine dependence, cigarettes, uncomplicated (6) Opioid dependence with withdrawal Current Visit: Yes Status: Chronic (7) Substance-induced anxiety disorder Current Visit: No Status: Chronic (8) Substance-induced sleep disorder Current Visit: No Status: Suspected Cleared for Admission [facility] - Detox or Rehab [facility] Level of Care: Medically Managed Detox Regimen/Protocol: Methadone [facility] Breath Alcohol Content Breath Alcohol Content: 0.007 Urine Pregancy Test - Result Urine Test Results: Negative- NO Line Present Urine Drug Screen - Results Drug Screen Negative: No Urine Drug Screen Results: THC-Marijuana, BZO-Benzodiazepines, OXY-Oxycodone
[2018-10-01] MEDS ORDERED: LOPERAMIDE HCL 2 MG CAPSULE PO PRN (16:46)
[2018-10-01] MEDS ORDERED: guaiFENesin/D-METHORPHAN HB 10 ML UNIT-DOSE CUPS PO PRN (16:46)
[2018-10-01] MEDS ORDERED: NICOTINE POLACRILEX 4 MG GUM BUC PRN (16:46)
[2018-10-01] MEDS ORDERED: ACETAMINOPHEN 325 MG TABLET (FP) PO PRN (16:46)
[2018-10-01] MEDS ORDERED: MAGNESIUM HYDROX 2400MG/30ML ORAL SUSPENSION 30 ML CUP PO PRN (16:46)
[2018-10-01] MEDS ORDERED: MAG HYDROX/AL HYDROX/SIMETH 30 ML UNIT-DOSE CUP PO PRN (16:46)
[2018-10-01] MEDS ORDERED: METHADONE HCL 10 MG TABLET (FOR DETOX USE ONLY) PO ONE (16:46)
[2018-10-01] MEDS ORDERED: P-EPHED 60MG/TRIPROLIDI 2.5MG TABLET PO PRN (16:46)
[2018-10-01] MEDS ORDERED: MENTHOL/PHENOL 1 EACH UD MM PRN (16:46)
[2018-10-01] MEDS ORDERED: MAGNESIUM CITRATE 300 ML BOTTLE PO PRN (16:46)
[2018-10-01] MEDS ORDERED: PANTOPRAZOLE 40 MG TABLET (FP) PO ONE (16:51)
[2018-10-01] MEDS ORDERED: TRIMETHOBENZAMIDE HCL 200MG/2ML INJ IM ONE (17:35)
[2018-10-01] MEDS ORDERED: TRIMETHOBENZAMIDE HCL 200MG/2ML INJ IM PRN (17:36)
[2018-10-01] MEDS: diazePAM 5 MG TABLET PO PRN ×3 (18:32→23:39)
[2018-10-01] MEDS: THIAMINE HCL 100 MG TABLET (FP) PO SCH (22:49)
[2018-10-01] MEDS: METHADONE HCL 10 MG TABLET (FOR DETOX USE ONLY) PO ONE ×2 (22:49→23:39)
[2018-10-01] MEDS: MELATONIN 5 MG TABLETS PO PRN (22:50)
[2018-10-01] MEDS: IBUPROFEN 400 MG TABLET (FP) PO PRN (22:50)
[2018-10-01] MEDS: TRIMETHOBENZAMIDE HCL 200MG/2ML INJ IM PRN (23:14)
[2018-10-01] MEDS: hydrOXYzine PAMOATE 50 MG CAPSULE (FP) PO PRN (23:19)
[2018-10-02] MEDS: diazePAM 5 MG TABLET PO PRN ×4 (05:31→22:22)
--- NOTE | 2018-10-02 09:54 | CONSULT ---
[facility] Psychiatric Consult - Data Date of interview: 10/02/18 Admission source: [facility] Identifying data: Patient is a 22 year old single female, without children, domiciled, and is currently employed (has her own business). This is one of multiple admissions for patient. Patient admitted to for opioid dependence. Substance Abuse History: Smoking Cessation. Smoking history: Never smoked. Have you smoked in the past 12 months: Yes. Aproximately how many cigarettes per day: 8. Hx Chewing Tobacco Use: No. Initiated information on smoking cessation: No. - Substance & Tx. History. Hx Alcohol Use: No. Hx Substance Use: Yes. Substance Use Type: Opiates. Hx Substance Use Treatment: Yes (last detox 04/2018) Medical History: gastritis /acid reflux, Liposuction to abdomen 2015 Psychiatric History: Patient denies h/o psychiatric hospitalization, outpatient care, and suicide attempt. States her boyfriend was killed last week and is feeling sad. Patient is currently grieving and is having difficulty sleeping. Patient denies thoughts or urges to hurt herself or others. Physical/Sexual Abuse/Trauma History: denies. Mental Status Exam - Mental Status Exam Alert and Oriented to: Time, Place, Person Cognitive Function: Good Patient Appearance: Well Groomed Mood: Euthymic Affect: Appropriate Patient Behavior: Appropriate, Cooperative Speech Pattern: Clear, Appropriate Voice Loudness: Normal Thought Process: Intact, Goal Oriented Thought Disorder: Not Present Hallucinations: Denies Suicidal Ideation: Denies Homicidal Ideation: Denies Insight/Judgement: Poor Sleep: Poorly Appetite: Fair Muscle strength/Tone: Normal Gait/Station: Normal Psychiatric Findings - Problem List ([place] 1, 2,3) (1) Cannabis dependence Current Visit: Yes Status: Chronic (2) Nicotine dependence Current Visit: Yes Status: Chronic Qualifiers: Nicotine product type: cigarettes Substance use status: uncomplicated Qualified Code(s): F17.210 - Nicotine dependence, cigarettes, uncomplicated (3) Opioid dependence with withdrawal Current Visit: Yes Status: Acute (4) Substance-induced sleep disorder Current Visit: Yes Status: Acute (5) Grieving Current Visit: Yes Status: Acute Comment: boyfriend was killed last week. - Initial Treatment Plan Initial Treatment Plan: Psychoeducation provided. Detoxification in progress. Will order Seroquel 50mg qhs. Benefits and side effects discussed. Verbal consent given.
[2018-10-02] MEDS: PANTOPRAZOLE 40 MG TABLET (FP) PO SCH (10:41)
[2018-10-02] MEDS: SUCRALFATE 1 GM/10 ML UNIT DOSE CUPS PO SCH ×2 (10:41→22:21)
[2018-10-02 10:52] LABS: HEMATOCRIT 41.1 % (32.4-45.2); HEMOGLOBIN 13.4 GM/dL (10.7-15.3); MCH 32.7 pg (25.7-33.7); MCHC 32.6 g/dl (32.0-36.0); MEAN CELL VOLUME 100.4 fl (80-96); MEAN PLT VOLUME 7.3 fl (7.5-11.1); PLATELET COUNT 273 K/MM3 (134-434); RDW 13.2 % (11.6-15.6)
[2018-10-02] MEDS: PRENATAL VITAMINS W/ FOLIC ACID TABLET (FP) PO SCH (10:55)
[2018-10-02] MEDS: METHADONE HCL 10 MG TABLET (FOR DETOX USE ONLY) PO ONE ×2 (10:55→12:22)
[2018-10-02] MEDS: NICOTINE 7 MG/24 HOURS TOPICAL PATCH TD SCH (10:55)
[2018-10-02 11:01] LABS: ALK PHOS 46 U/L (45-117); ANION GAP 10 MMOL/L (8-16); BILIRUBIN,TOTAL 0.7 mg/dL (0.2-1); BLOOD UREA NITROGEN 19 mg/dL (7-18); CALCIUM 9.7 mg/dL (8.5-10.1); CHLORIDE 101 mmol/L (98-107); CO2 28 mmol/L (21-32); CREATININE 0.6 mg/dL (0.55-1.3); GLUCOSE,RANDOM 89 mg/dL (74-106); POTASSIUM 3.3 mmol/L (3.5-5.1); SGOT/AST 12 U/L (15-37); SGPT/ALT 15 U/L (13-61); SODIUM 139 mmol/L (136-145); TOT PROT 6.9 g/dl (6.4-8.2)
[2018-10-02] MEDS: TRIMETHOBENZAMIDE HCL 200MG/2ML INJ IM PRN (11:03)
[2018-10-02] MEDS ORDERED: METHADONE DETOX 10 MG/1 ML [20ML VIAL] IM ONE (12:22)
--- NOTE | 2018-10-02 12:55 | PN ---
BHS COWS - Scale Resting Pulse: 0= [place] 80 or Below Sweatin=Flushed/Facial Moisture Restless Observation: 1= Difficult to Sit Still Pupil Size: 0= Normal to Room Light Bone or Joint Aches: 2= Severe Diffuse Aches Runny Nose/ Eye Tearin= Runny Nose/Eyes GI Upset > 30mins: 3= Vomiting/Diarrhea Tremor Observation of Outstretched Hands: 2= Slight Tremor Visible Yawning Observation: 2= >3x During Session Anxiety or Irritability: 2=Irritable/Anxious Goose Flesh Skin: 0=Smooth Skin COWS Score: 16 BHS Progress Note (SOAP) Subjective: agitation nausea vomiting sweats interrupted sleep body aches Objective: 10/02/18 12:56 Vital Signs Temperature 98.8 F 10/02/18 09:31 Pulse Rate 62 10/02/18 09:31 Respiratory Rate 16 10/02/18 09:31 Blood Pressure 108/56 L 10/02/18 09:31 O2 Sat by Pulse Oximetry (%) Laboratory Tests 10/02/18 10/02/18 07:00 07:00 WBC 12.0 H RBC 4.10 Hgb 13.4 Hct 41.1 MCV 100.4 H MCH 32.7 MCHC 32.6 RDW 13.2 Plt Count 273 MPV 7.3 L Sodium 139 Potassium 3.3 L Chloride 101 Carbon Dioxide 28 Anion Gap 10 BUN 19 H Creatinine 0.6 Creat Clearance w eGFR > 60 Random Glucose 89 Calcium 9.7 Total Bilirubin 0.7 AST 12 L ALT 15 Alkaline Phosphatase 46 Total Protein 6.9 Albumin 4.0 aaox3 ambulating no acute distress potassium 3.3; kdur ordered 20meq x 4 days starting tomorrow when pt stops vomiting. Assessment: 10/02/18 12:58 withdrawal sx Plan: continue detox increase fluids methadone 10mg IM x one tigan IM prn
[2018-10-02] MEDS ORDERED: traZODone HCL 50 MG TABLET (FP) PO SCH (22:00)
[2018-10-02] MEDS: MELATONIN 5 MG TABLETS PO PRN (22:21)
[2018-10-02] MEDS: IBUPROFEN 400 MG TABLET (FP) PO PRN (22:21)
[2018-10-02] MEDS: THIAMINE HCL 100 MG TABLET (FP) PO SCH (22:22)
[2018-10-02] MEDS: QUEtiapine FUMARATE 50 MG TABLET PO SCH (22:22)
[2018-10-03] MEDS ORDERED: METHADONE HCL 5 MG TABLET (FOR DETOX USE ONLY) PO ONE (10:00)
--- NOTE | 2018-10-03 12:15 | PN ---
BHS COWS - Scale Resting Pulse: 0= [place] 80 or Below Sweatin=Flushed/Facial Moisture Restless Observation: 1= Difficult to Sit Still Pupil Size: 0= Normal to Room Light Bone or Joint Aches: 2= Severe Diffuse Aches Runny Nose/ Eye Tearin= None GI Upset > 30mins: 3= Vomiting/Diarrhea Tremor Observation of Outstretched Hands: 2= Slight Tremor Visible Yawning Observation: 1= 1-2x During Session Anxiety or Irritability: 1=Feels Anxious/Irritable Goose Flesh Skin: 0=Smooth Skin COWS Score: 12 BHS Progress Note (SOAP) Subjective: nausea vomiting sweats interrupted sleep Objective: 10/03/18 12:14 Vital Signs Temperature 98.8 F 10/03/18 10:47 Pulse Rate 79 10/03/18 10:47 Respiratory Rate 18 10/03/18 10:47 Blood Pressure 109/70 10/03/18 10:47 O2 Sat by Pulse Oximetry (%) Laboratory Tests 10/02/18 10/02/18 10/02/18 07:00 07:00 07:00 WBC 12.0 H RBC 4.10 Hgb 13.4 Hct 41.1 MCV 100.4 H MCH 32.7 MCHC 32.6 RDW 13.2 Plt Count 273 MPV 7.3 L Sodium 139 Potassium 3.3 L Chloride 101 Carbon Dioxide 28 Anion Gap 10 BUN 19 H Creatinine 0.6 Creat Clearance w eGFR > 60 Random Glucose 89 Calcium 9.7 Total Bilirubin 0.7 AST 12 L ALT 15 Alkaline Phosphatase 46 Total Protein 6.9 Albumin 4.0 RPR Titer Nonreactive labs noted aaox3 ambulating no acute distress Assessment: 10/03/18 12:15 withdrawal sx Plan: methadone 7.5IM x one ordered continue with tigan prn
[2018-10-03] MEDS ORDERED: METHADONE DETOX 10 MG/1 ML [20ML VIAL] IM ONE (12:30)
[2018-10-03] MEDS: PRENATAL VITAMINS W/ FOLIC ACID TABLET (FP) PO SCH (12:42)
[2018-10-03] MEDS: NICOTINE 7 MG/24 HOURS TOPICAL PATCH TD SCH (12:42)
[2018-10-03] MEDS: PANTOPRAZOLE 40 MG TABLET (FP) PO SCH (14:15)
[2018-10-03] MEDS: SUCRALFATE 1 GM/10 ML UNIT DOSE CUPS PO SCH ×2 (14:15→22:05)
[2018-10-03] MEDS: IBUPROFEN 400 MG TABLET (FP) PO PRN (17:29)
[2018-10-03] MEDS: diazePAM 5 MG TABLET PO PRN ×2 (17:29→22:07)
[2018-10-03] MEDS: MELATONIN 5 MG TABLETS PO PRN (22:05)
[2018-10-03] MEDS: hydrOXYzine PAMOATE 50 MG CAPSULE (FP) PO PRN (22:06)
[2018-10-03] MEDS: QUEtiapine FUMARATE 50 MG TABLET PO SCH (22:06)
[2018-10-03] MEDS: THIAMINE HCL 100 MG TABLET (FP) PO SCH (23:47)
[2018-10-04] MEDS: diazePAM 5 MG TABLET PO PRN ×2 (06:00→12:19)
[2018-10-04] MEDS: hydrOXYzine PAMOATE 50 MG CAPSULE (FP) PO PRN ×3 (06:01→22:12)
[2018-10-04] MEDS ORDERED: TRIMETHOBENZAMIDE HCL 200MG/2ML INJ IM ONE (09:39)
--- NOTE | 2018-10-04 09:45 | PN ---
S Progress Note (SOAP) Subjective: patient requests methadone IM due to nausea and vomiting discuss purpose of antiemetic medication "makes me worse" recommend ER evaluation due to constant vomiting x 3-4 days patient refuses ER evaluation agrees tigan IM at the present time body aches joints pain vomiting GI discomfort anxiety Objective: 10/04/18 09:45 Vital Signs Temperature 98.4 F 10/04/18 07:55 Pulse Rate 90 10/04/18 07:55 Respiratory Rate 16 10/04/18 07:55 Blood Pressure 124/79 10/04/18 07:55 O2 Sat by Pulse Oximetry (%) Laboratory Last Values WBC 12.0 K/mm3 (4.0-10.0) H 10/02/18 07:00 RBC 4.10 M/mm3 (3.60-5.2) 10/02/18 07:00 Hgb 13.4 GM/dL (10.7-15.3) 10/02/18 07:00 Hct 41.1 % (32.4-45.2) 10/02/18 07:00 MCV 100.4 fl (80-96) H 10/02/18 07:00 MCH 32.7 pg (25.7-33.7) 10/02/18 07:00 MCHC 32.6 g/dl (32.0-36.0) 10/02/18 07:00 RDW 13.2 % (11.6-15.6) 10/02/18 07:00 Plt Count 273 K/MM3 (134-434) 10/02/18 07:00 MPV 7.3 fl (7.5-11.1) L 10/02/18 07:00 Sodium 139 mmol/L (136-145) 10/02/18 07:00 Potassium 3.3 mmol/L (3.5-5.1) L 10/02/18 07:00 Chloride 101 mmol/L (98-107) 10/02/18 07:00 Carbon Dioxide 28 mmol/L (21-32) 10/02/18 07:00 Anion Gap 10 MMOL/L (8-16) 10/02/18 07:00 BUN 19 mg/dL (7-18) H 10/02/18 07:00 Creatinine 0.6 mg/dL (0.55-1.3) 10/02/18 07:00 Creat Clearance w eGFR > 60 (>60) 10/02/18 07:00 Random Glucose 89 mg/dL (74-106) 10/02/18 07:00 Calcium 9.7 mg/dL (8.5-10.1) 10/02/18 07:00 Total Bilirubin 0.7 mg/dL (0.2-1) 10/02/18 07:00 AST 12 U/L (15-37) L 10/02/18 07:00 ALT 15 U/L (13-61) 10/02/18 07:00 Alkaline Phosphatase 46 U/L (45-117) 10/02/18 07:00 Total Protein 6.9 g/dl (6.4-8.2) 10/02/18 07:00 Albumin 4.0 g/dl (3.4-5.0) 10/02/18 07:00 RPR Titer Nonreactive (NONREACTIVE) 10/02/18 07:00 lab noted 10/04/18 09:49 low K+ Assessment: 10/04/18 09:47 opiate withdrawal sx vomiting Plan: continue detox tigan 200 mg IM x 1 discontinue motrin potassium supplement continue carafate repeat K+ in am
[2018-10-04] MEDS ORDERED: METHADONE HCL 5 MG TABLET (FOR DETOX USE ONLY) PO ONE (10:00)
[2018-10-04] MEDS ORDERED: RANITIDINE HCL 150 MG TABLET (FP) PO SCH (10:00)
[2018-10-04] MEDS: PANTOPRAZOLE 40 MG TABLET (FP) PO SCH (10:15)
[2018-10-04] MEDS: NICOTINE 7 MG/24 HOURS TOPICAL PATCH TD SCH (10:17)
[2018-10-04] MEDS: SUCRALFATE 1 GM/10 ML UNIT DOSE CUPS PO SCH ×2 (10:17→22:14)
[2018-10-04] MEDS: PRENATAL VITAMINS W/ FOLIC ACID TABLET (FP) PO SCH (10:17)
[2018-10-04] MEDS: POTASSIUM CHLORIDE TABS 20 MEQ TABLET.ER (FP) PO SCH ×2 (11:00→22:12)
[2018-10-04] MEDS ORDERED: ONDANSETRON *ODT* 4 MG TABLET SL PRN (13:43)
[2018-10-04] MEDS: QUEtiapine FUMARATE 50 MG TABLET PO SCH (22:12)
[2018-10-04] MEDS: THIAMINE HCL 100 MG TABLET (FP) PO SCH (22:12)
[2018-10-04] MEDS: MELATONIN 5 MG TABLETS PO PRN (22:13)
[2018-10-05] MEDS ORDERED: METHADONE DETOX 10 MG/1 ML [20ML VIAL] IM ONE (09:51)
[2018-10-05] MEDS: TRIMETHOBENZAMIDE HCL 200MG/2ML INJ IM PRN (09:56)
[2018-10-05] MEDS ORDERED: METHADONE HCL 10 MG TABLET (FOR DETOX USE ONLY) PO ONE (10:00)
[2018-10-05] MEDS: PANTOPRAZOLE 40 MG TABLET (FP) PO SCH (12:14)
[2018-10-05] MEDS: PRENATAL VITAMINS W/ FOLIC ACID TABLET (FP) PO SCH (12:15)
[2018-10-05] MEDS: POTASSIUM CHLORIDE TABS 20 MEQ TABLET.ER (FP) PO SCH (12:15)
[2018-10-05] MEDS: NICOTINE 7 MG/24 HOURS TOPICAL PATCH TD SCH (12:15)
--- NOTE | 2018-10-05 12:16 | PN ---
BHS Progress Note (SOAP) Subjective: nausea vomiting body aches Objective: 10/05/18 12:15 Vital Signs Temperature 99.9 F H 10/05/18 09:14 Pulse Rate 79 10/05/18 09:14 Respiratory Rate 18 10/05/18 09:14 Blood Pressure 114/85 10/05/18 09:14 O2 Sat by Pulse Oximetry (%) aaox3 ambulating no acute distress Assessment: 10/05/18 12:15 withdrawal sx Plan: continue detox increase fluids tigan IM reglan ordered methadone 5mg IM x one d/c on October 07
[2018-10-05] MEDS: METOCLOPRAMIDE HCL 10 MG TABLET (FP) PO SCH ×2 (14:01→18:14)
[2018-10-05 16:50] VITALS: BP 120/84; PULSE 82; TEMP 98.7
[2018-10-05 18:01] LABS: BASO % 0.2 % (0-2.0); EOS % 0.5 % (0-4.5); HEMATOCRIT 44.8 % (32.4-45.2); HEMOGLOBIN 15.7 GM/dL (10.7-15.3); LYMPH % 15.6 % (8-40); MCH 34.6 pg (25.7-33.7); MCHC 35.1 g/dl (32.0-36.0); MEAN CELL VOLUME 98.6 fl (80-96); MEAN PLT VOLUME 7.6 fl (7.5-11.1); MONO % 6.7 % (3.8-10.2); PLATELET COUNT 283 K/MM3 (134-434); RBC 4.54 M/mm3 (3.60-5.2); RDW 12.6 % (11.6-15.6); WHITE BLOOD COUNT 11.7 K/mm3 (4.0-10.0)
[2018-10-05] MEDS: hydrOXYzine PAMOATE 50 MG CAPSULE (FP) PO PRN (18:14)
--- NOTE | 2018-10-05 18:40 | DS ---
[facility] Detox Discharge Summary Admission Date: 10/01/18 Discharge Date: 10/05/18 - History Present History: Opioid Dependence Additional Comments: Admittted for opiate withdrawal symptoms r/t percocet use disorder. - Physical Exam Results Vital Signs: Vital Signs Temperature 98.7 F 10/05/18 16:50 Pulse Rate 82 10/05/18 16:50 Respiratory Rate 18 10/05/18 16:50 Blood Pressure 120/84 10/05/18 16:50 O2 Sat by Pulse Oximetry (%) Pertinent Admission Physical Exam Findings: Patient admitted for opiate withdrawal symptoms and needing detox. Protracted symptoms and arrangements made w/ counseor for admission to a [facility] on 10/07. Overdose risks and prevention discussed. Laboratory Last Values WBC 11.7 K/mm3 (4.0-10.0) H 10/05/18 10:19 RBC 4.54 M/mm3 (3.60-5.2) 10/05/18 10:19 Hgb 15.7 GM/dL (10.7-15.3) H 10/05/18 10:19 Hct 44.8 % (32.4-45.2) 10/05/18 10:19 MCV 98.6 fl (80-96) H 10/05/18 10:19 MCH 34.6 pg (25.7-33.7) H 10/05/18 10:19 MCHC 35.1 g/dl (32.0-36.0) 10/05/18 10:19 RDW 12.6 % (11.6-15.6) 10/05/18 10:19 Plt Count 283 K/MM3 (134-434) 10/05/18 10:19 MPV 7.6 fl (7.5-11.1) 10/05/18 10:19 Absolute Neuts (auto) 9.0 K/mm3 (1.5-8.0) H 10/05/18 10:19 Neutrophils % 77.0 % (42.8-82.8) 10/05/18 10:19 Lymphocytes % 15.6 % (8-40) 10/05/18 10:19 Monocytes % 6.7 % (3.8-10.2) 10/05/18 10:19 Eosinophils % 0.5 % (0-4.5) D 10/05/18 10:19 Basophils % 0.2 % (0-2.0) 10/05/18 10:19 Nucleated RBC % 0 % (0-0) 10/05/18 10:19 Sodium 139 mmol/L (136-145) 10/02/18 07:00 Potassium 3.3 mmol/L (3.5-5.1) L 10/05/18 07:45 Chloride 101 mmol/L (98-107) 10/02/18 07:00 Carbon Dioxide 28 mmol/L (21-32) 10/02/18 07:00 Anion Gap 10 MMOL/L (8-16) 10/02/18 07:00 BUN 19 mg/dL (7-18) H 10/02/18 07:00 Creatinine 0.6 mg/dL (0.55-1.3) 10/02/18 07:00 Creat Clearance w eGFR > 60 (>60) 10/02/18 07:00 Random Glucose 89 mg/dL (74-106) 10/02/18 07:00 Calcium 9.7 mg/dL (8.5-10.1) 10/02/18 07:00 Total Bilirubin 0.7 mg/dL (0.2-1) 10/02/18 07:00 AST 12 U/L (15-37) L 10/02/18 07:00 ALT 15 U/L (13-61) 10/02/18 07:00 Alkaline Phosphatase 46 U/L (45-117) 10/02/18 07:00 Total Protein 6.9 g/dl (6.4-8.2) 10/02/18 07:00 Albumin 4.0 g/dl (3.4-5.0) 10/02/18 07:00 RPR Titer Nonreactive (NONREACTIVE) 10/02/18 07:00 - Treatment Hospital Course: Detox Protocol Followed, Detoxed Safely, Discharged Condition Good (Patient had nausea and vomiting earlier but states feeling better now. States has an appointment to start [facility] -OTP for 10/07.) - Medication Discharge Medications: Ambulatory Orders Famotidine [Pepcid -] 20 mg PO DAILY 08/04/18 Quetiapine Fumarate [Seroquel] 100 mg PO HS #30 tablet 08/05/18 Sertraline HCl [Zoloft] 100 mg PO DAILY #30 tablet 08/05/18 - AMA Did Patient Leave Against Medical Advice: No
[2018-10-06] MEDS ORDERED: METHADONE HCL 5 MG TABLET (FOR DETOX USE ONLY) PO ONE (06:00)
== END 2018-10-05 18:53 | disposition home or self-care (01) | DRG 773 ==
LOC: YASAS 14:36 → Y6N 16:49
PROC: HZ2ZZZZ Detoxification Services for Substance Abuse Treatment (ICD-10-PCS; principal; 2018-10-01)
DX: F11.23 Opioid dependence with withdrawal (principal); F12.20 Cannabis dependence, uncomplicated; F17.210 Nicotine dependence, cigarettes, uncomplicated; F19.280 Other psychoactive substance dependence with psychoactive substance-induced anxiety disorder; F19.282 Other psychoactive substance dependence with psychoactive substance-induced sleep disorder; F43.20 Adjustment disorder, unspecified; K21.9 Gastro-esophageal reflux disease without esophagitis; K29.50 Unspecified chronic gastritis without bleeding; R11.2 Nausea with vomiting, unspecified
CPT/HCPCS: 36415; 80053; 84132; 85025; 85027; 86593

== ENCOUNTER 2018-10-07 08:36 | Emergency (ER) | payer SELFPAY ==
[2018-10-07] MEDS ORDERED: SODIUM CHLORIDE 1,000 ML IV STA (08:45)
[2018-10-07] MEDS ORDERED: FAMOTIDINE 20 MG/50 ML IVPB 20 MG/50 ML MG IVPB ONE ×2 (08:45→09:44)
[2018-10-07] MEDS ORDERED: METOCLOPRAMIDE HCL INJECTION 10 MG/2 ML VIAL IVPB ONE (08:45)
--- NOTE | 2018-10-07 08:49 | PDOC ---
History of Present Illness - General Chief Complaint: Pain Stated Complaint: ABD PAIN Time Seen by Provider: 10/07/18 08:46 History Source: Patient Exam Limitations: No Limitations - History of Present Illness Initial Comments: Pt is a 22 yo F, with PMH of GERD (on pepcid at home), who is presenting with complaints of epigastric pain, nausea/vomiting, difficulty tolerating PO food and fluid intake, and subjective chills x3 weeks. Pt has PMH of GERD and was discharged 2 days ago from detox for percocet (15 pills/day) and THC use. Pt states the epigastric pain is "burning" and has been constant, exacerbated by trying to eat food. She has been vomiting 5-8 times per day, generally NBNB, and has not been improved with Pepcid at home. She does admit to mild streaking of blood in the vomit 3 days ago during a single incident, which resolved and was after multiple emesis/heaving. She also complains of loose stool after decreased PO intake the last 3 weeks. Pt states she received an endoscopy from "a GI doctor in [place]" 1 month ago, which showed only reflux, no ulcers or lesions. Pt denies any fevers, headache, vision changes, chest pain, palpitations, SOB, urinary symptoms, blood in the stool, or leg swelling. Social: Pt smokes ~1/2 ppd, admits to chronic THC use, but has reduced THC after abdominal symptoms started. Denying any current alcohol or drug use since leaving detox. Pt denies any recent travel or sick contacts. Surgical: no relevant history Family: no relevant history 10/07/18 10:04 Past History - Travel Traveled outside of the country in the last 30 days: No Close contact w/someone who was outside of country & ill: No - Past Medical History Allergies/Adverse Reactions: Allergies Allergy/AdvReac Type Severity Reaction Status Date / Time No Known Allergies Allergy Verified 10/07/18 08:54 Home Medications: Ambulatory Orders Famotidine [Pepcid -] 20 mg PO DAILY 08/04/18 Quetiapine Fumarate [Seroquel] 100 mg PO HS #30 tablet 08/05/18 Sertraline HCl [Zoloft] 100 mg PO DAILY #30 tablet 08/05/18 Mag Hydrox/Al Hydrox/Simeth [Mylanta Suspension -] 30 ml PO Q6H PRN #1 bottle 12 /26/18 Metoclopramide HCl [Reglan] 10 mg PO BID PRN #30 tablet 10/07/18 Anemia: No Asthma: No Cancer: No Cardiac Disorders: No CVA: No COPD: No CHF: No Diabetes: No GI Disorders: No Disorders: Yes (gastritis /acid reflux) HTN: No Hypercholesterolemia: No Kidney Stones: No Liver Disease: No Seizures: No Thyroid Disease: No - Surgical History Abdominal Surgery: No Appendectomy: No Cardiac Surgery: No Cholecystectomy: No Lung Surgery: No Neurologic Surgery: No Orthopedic Surgery: No - Reproductive History PID: No - Suicide/Smoking/Psychosocial Hx Smoking History: Never smoked Have you smoked in the past 12 months: Yes Number of Cigarettes Smoked Daily: 8 If you are a former smoker, when did you quit?: 1 month ago 'Breaking Loose' booklet given: 08/04/18 Hx Alcohol Use: No Drug/Substance Use Hx: Yes Substance Use Type: Opiates Hx Substance Use Treatment: Yes (last detox 04/2018) Review of Systems - Review of Systems Able to Perform ROS?: Yes Is the patient limited Angolan proficient: No Constitutional: Yes: Chills, Loss of Appetite, Weight Stable. No: Diaphoresis, Fever, Weakness HEENTM: No: Recent change in vision, Nose Congestion, Throat Pain, Throat Swelling, Difficulty Swallowing Respiratory: No: Cough, Orthopnea, Shortness of Breath Cardiac (ROS): No: Chest Pain, Edema, Palpitations, Syncope, Chest Tightness ABD/GI: Yes: Diarrhea (loose brown stool since decreased PO intake), Nausea, Poor Appetite, Poor Fluid Intake, Vomiting, Indigestion, Abdominal cramping. No : Abdominal Distended, Abd. Pain w/ defecation, Blood Streaked Bowels, Constipated, Rectal Bleeding, Tarry Stools : No: Burning, Dysuria, Discharge, Frequency, Flank Pain, Hematuria, Incontinence, Pain, Urgency Musculoskeletal: No: Back Pain, Joint Pain Integumentary: No: Rash Neurological: No: Headache, Numbness, Seizure, Weakness, Unsteady Gait, Dizziness Psychiatric: Yes: Anxiety (anxiety since leaving rehab/stopped taking percocet) . No: Sleep Pattern Change, Change in Appetite (only since abdominal pain, not chronic) Endocrine: No: Increased Urine, Change in Weight Hematologic/Lymphatic: No: Anemia, Blood Clots, Easy Bleeding, Easy Bruising All Other Systems: Reviewed and Negative *Physical Exam - Physical Exam General Appearance: Yes: Nourished, Appropriately Dressed, Thin. No: Apparent Distress HEENT: positive: EOMI, STAR, Normal ENT Inspection, Normal Voice, Pharynx Normal , Hearing Grossly Normal. negative: Scleral Icterus (R), Scleral Icterus (L), Muffled/Hoarse voice, Pharyngeal Erythema, Tonsillar Exudate, Tonsillar Erythema , Rhinorrhea Neck: positive: Trachea midline, Normal Thyroid, Supple. negative: Tender, Rigid, Lymphadenopathy (R), Lymphadenopathy (L), Rigidity Respiratory/Chest: positive: Lungs Clear, Normal Breath Sounds. negative: Chest Tender, Respiratory Distress, Accessory Muscle Use, Crackles, Wheezing Cardiovascular: positive: Regular Rhythm, Regular Rate, S1, S2. negative: Edema , JVD, Murmur Vascular Pulses: Carotid (R): 4+, Carotid (L): 4+ Gastrointestinal/Abdominal: positive: Normal Bowel Sounds, Tender (diffuse upper abdominal pain, worst in epigastric area; soft abdomen, no rebound, no guarding), Flat, Soft. negative: Organomegaly, Pulsatile Mass, Distended, Guarding, Rebound Rectal Exam: positive: deferred Lymphatic: negative: Adenopathy, Tenderness Musculoskeletal: positive: Normal Inspection. negative: CVA Tenderness Extremity: positive: Normal Capillary Refill, Normal Inspection, Normal Range of Motion, Pelvis Stable. negative: Tender, Pedal Edema Integumentary: positive: Normal Color, Dry, Warm. 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 Umanzor. Pt presenting with complaints of epigastric pain, nausea/vomiting, difficulty tolerating PO food and fluid intake, and subjective chills x3 weeks. Pt has PMH of GERD and was discharged 2 days ago from detox for percocet (15 pills/day) and THC use. Pt states the epigastric pain is "burning" and has been constant, exacerbated by trying to eat food. She has been vomiting 5-8 times per day, generally NBNB. She does admit to mild streaking of blood in the vomit 3 days ago during a single incident, which resolved and was after multiple emesis/ heaving. She also complains of loose stool after decreased PO intake the last 3 weeks. Pt states she received an endoscopy from "a GI doctor in [place]" 1 month ago, which showed only reflux, no ulcers or lesions. Pt denies any fevers, headache, vision changes, chest pain, palpitations, SOB, urinary symptoms, blood in the stool, or leg swelling. PE showed pt afebrile, vitals stable. Pt has diffuse upper abdominal tenderness to palpation, worse over the epigastric area, no rebound, no guarding, abdomen soft. No CVA tenderness. Heart and lung sounds clear, exam otherwise benign. Pt does not appear clinically dry. Considering uncontrolled GERD vs cyclic vomiting/THC use, gastroenteritis vs pancreatitis vs IBS vs intestinal motility issue/delayed emptying (pt vomiting and having loose stool). Ordered work-up including CBC, CMP, lipase, ECG (r/o prolonged QT). Provided 1g ofirmev, 10 mg IV reglan, 20 mg IV pepcid, and 1 L NS for improvement of epigastric pain and dehydration. Will continue to reassess pt and monitor for symptomatic improvement. ECG showed NSR, no prolonged QT, normal intervals. 10/07/18 09:04 CBC and CMP sent to lab, pending pt to provide urine sample. 10/07/18 09:53 CBC: WBC 14.6, H/H stable. Appears to be hemoconcentrated. Neutrophilic shift. Serum negative. 10/07/18 10:12 CMP: K 3.3, <Cl, likely from vomiting. UA and utox pending. 10/07/18 10:57 Pt states pain much improved. PO challenge provided with water. Sending 10 mg PO reglan and 30 mg PO maalox suspension to pt pharmacy. Providing PCP appointment and GI consult for pt follow-up. 10/07/18 11:04 UA negative for infection. 10/07/18 11:53 40 mg PO K was given for hypo K. UA tox positive for methadone, opiates, benzos and THC, all explained by pt drug use and detox. Pt tolerated PO challenge. Pt can be discharged to home with follow-up. PCP appointment made for pt. Pt advised to follow-up GI as well. Strict return precautions provided with pt understanding. 10/07/18 12:15 *DC/Admit/Observation/Transfer Diagnosis at time of Disposition: GERD (gastroesophageal reflux disease) Qualifiers: Esophagitis presence: esophagitis presence not specified Qualified Code(s): K21.9 - Gastro-esophageal reflux disease without esophagitis Nausea & vomiting Qualifiers: Vomiting type: unspecified Vomiting Intractability: non-intractable Qualified Code(s): R11.2 - Nausea with vomiting, unspecified - Discharge Dispostion Disposition: HOME Condition at time of disposition: Improved Decision to Admit order: No - Prescriptions Prescriptions: Mag Hydrox/Al Hydrox/Simeth [Mylanta Suspension -] 30 ml PO Q6H PRN #1 bottle PRN Reason: Indigestion Metoclopramide HCl [Reglan] 10 mg PO BID PRN #30 tablet PRN Reason: Nausea And/Or Vomiting - Referrals Referrals: Travon Pearl MD [Staff Physician] - [facility] [place] [facility] [place] [Provider Group] - Patient Instructions Additional Instructions: You were seen in the ER today for nausea and vomiting, which improved after the medications we provided. Please follow-up with your primary care doctor and GI doctor within 1-2 days to discuss your visit and make sure your symptoms have improved. Please return to the ER if you have any worsening pain, blood in your stool or vomit, development of fevers or chills which does not improve with tylenol or ibuprofen use, loss of consciousness, inability to tolerate food or fluids, or any other concerns. I have sent 10 mg Reglan and 30 mg Maalox suspension to take for nausea and indigestion. - Post Discharge Activity
[2018-10-07 08:52] VITALS: BMI 22.8
[2018-10-07] MEDS ORDERED: ACETAMINOPHEN 1000 MG/100 ML VIAL (NON FORMULARY) IVPB ONE (09:14)
[2018-10-07] MEDS ORDERED: METOCLOPRAMIDE HCL INJECTION 10 MG/2 ML VIAL ONE (09:43)
[2018-10-07] MEDS ORDERED: ACETAMINOPHEN INJECTION 100 ML IVPB ONE (09:44)
[2018-10-07 09:56] LABS: BASO % 0.1 % (0-2.0); HEMATOCRIT 42.9 % (32.4-45.2); HEMOGLOBIN 15.3 GM/dL (10.7-15.3); LYMPH % 8.1 % (8-40); MCH 34.5 pg (25.7-33.7); MCHC 35.8 g/dl (32.0-36.0); MEAN CELL VOLUME 96.5 fl (80-96); MEAN PLT VOLUME 7.1 fl (7.5-11.1); MONO % 3.9 % (3.8-10.2); NEUT % 87.9 % (42.8-82.8); PLATELET COUNT 297 K/MM3 (134-434); RBC 4.44 M/mm3 (3.60-5.2); RDW 12.2 % (11.6-15.6); WHITE BLOOD COUNT 14.6 K/mm3 (4.0-10.0)
[2018-10-07 10:27] LABS: ALBUMIN 4.7 g/dl (3.4-5.0); ALK PHOS 57 U/L (45-117); ANION GAP 11 MMOL/L (8-16); BILIRUBIN,TOTAL 1.4 mg/dL (0.2-1); BLOOD UREA NITROGEN 16 mg/dL (7-18); CALCIUM 9.2 mg/dL (8.5-10.1); CHLORIDE 97 mmol/L (98-107); CO2 28 mmol/L (21-32); CREATININE 0.8 mg/dL (0.55-1.3); GLUCOSE,RANDOM 123 mg/dL (74-106); LIPASE 166 U/L (73-393); POTASSIUM 3.3 mmol/L (3.5-5.1); SGOT/AST 24 U/L (15-37); SGPT/ALT 24 U/L (13-61); SODIUM 135 mmol/L (136-145); TOT PROT 7.6 g/dl (6.4-8.2)
[2018-10-07 10:49] LABS: HCG,QUALITATIVE URINE Negative
--- NOTE | 2018-10-07 10:50 | PDOC ---
Attending Attestation - Medical Decision Making 10/07/18 12:03 Documentation prepared by JASWANT Dubon, acting as medical technologist hematology for Yunior Umanzor MD. <Estrella Sullivan - Last Filed: 10/07/18 12:03> - Resident Resident Name: Brook Stanley - ED Attending Attestation I have performed the following: I have examined & evaluated the patient, The case was reviewed & discussed with the resident, I agree w/resident's findings & plan, Exceptions are as noted - HPI HPI: 10/07/18 11:40 The patient is a 22 year old female with a significant PMH of substance abuse ( opiates and marijuana) and GERD (compliant with Pepcid), who presents to the emergency department today complaining of epigastric pain, nausea, vomiting, and subjective chills for 3 weeks. Patient reports she has been constantly experiencing burning epigastric pain with associated nausea and NBNB vomit (5- 8 times a day) for the past three weeks, noting that she cannot keep any fluids or food down. She also notes loose stool recently. Patient also reports 1 episode of a slight bloody streak in her vomit after multiple episodes of vomiting. Pt reports intermittent marijuana use, last a few days ago. No treatments tried. The patient denies chest pain, shortness of breath, headache and dizziness. Denies fever, chills, diarrhea and constipation. Denies dysuria, frequency, urgency and hematuria. Allergies: NKA Past surgical history: None reported Social history: Daily ppd tobacco a day and marijuana use, hx of substance abuse but denies any recent use of opiates PCP: None reported - Physicial Exam PE: 10/07/18 11:41 GENERAL: Awake, alert, and fully oriented, in no acute distress EYES: PERRLA, EOMI, sclera anicteric, conjunctiva clear ENT: Nares patent, oropharynx clear without exudates. Moist mucosa NECK: Normal ROM, supple, no lymphadenopathy, JVD, or masses LUNGS: Breath sounds equal, clear to auscultation bilaterally. No wheezes, and no crackles HEART: Regular rate and rhythm, normal S1 and S2, no murmurs, rubs or gallops ABDOMEN: Soft, nontender, normoactive bowel sounds. No guarding, no rebound. No masses EXTREMITIES: Normal range of motion, no edema. No clubbing or cyanosis. No cords , erythema, or tenderness BACK: No midline spinal tenderness in cervical/thoracic/lumbar region NEUROLOGICAL: Normal speech, cranial nerves intact, negative pronator drift, 5/ 5 strength in all 4 extremities, normal sensation to light touch in all 4 extremities, normal cerebellar exam, normal gait, normal reflexes and tone SKIN: Warm, Dry, normal turgor, no rashes or lesions noted. - Medical Decision Making 10/07/18 11:45 22yo F hx PSA, GERD, recurrent episodes of N/V presents to the ED with 3 weeks of mostly NBNB emesis, PO intolerance, and one episode of blood streak in vomitus after multiple rounds of emesis consistent with franky giron tear 3 days ago. No blood in emesis since. Vitals wnl. Exam wnl, no abd ttp, pt is well appearing. DDx includes but not limited to cannabinoid hyperemesis syndrome vs gastropareisis vs vs pancreatitis vs gastritis. Labs with leukocytosis to 14.6, likely reactive CMP with K 3.3, likely 2/2 vomiting UPT/UA neg Pt feels much better, tolerating PO at this time Utox pending, will reassess 10/07/18 12:30 Tolerating PO K repleted Encouraged pt not to use marijuana as it may be contributing to her sxs Continues to feel well, no abd ttp Requests DC home, clinically well appearing I discussed the physical exam findings, ancillary test results and final diagnoses with the patient. I answered all of the patient's questions. The patient was satisfied with the care received and felt comfortable with the discharge plan and treatment plan. The patient will call their primary care physician within 24 hours to arrange follow-up and will return to the Emergency Department with any new, persistent or worsening symptoms. <Yunior Umanzor - Last Filed: 10/07/18 12:33> Heart Score/ECG Review - ECG Intrepretation Comment:: Normal sinus rhythm. T wave abnormality, consider anterior ischemia Abnormal ECG. 10/07/18 11:37 <Estrella Sullivan - Last Filed: 10/07/18 12:03> #1 10/07/18 12:05 Twelve-lead EKG was performed and reviewed by me. Normal sinus rhythm, rate 73. Normal axis. No ST elevations. T wave inversions in V2 to V4. T-wave flattening in 3. When compared to EKG from September 2015, no significant changes. <Yunior Umanzor - Last Filed: 10/07/18 12:33>
[2018-10-07 11:10] LABS: URINE APPEARANCE CLOUDY; URINE BILIRUBIN NEGATIVE (<2.0 mg/dL); URINE COLOR AMBER; URINE GLUCOSE (UA) NEGATIVE (NEGATIVE); URINE KETONE TRACE (NEGATIVE); URINE LEUK ESTERASE NEGATIVE (NEGATIVE); URINE NITRITE NEGATIVE (NEGATIVE); URINE PROTEIN 2+ (NEGATIVE)
[2018-10-07 11:14] LABS: EPI CELLS MODERATE /HPF (FEW); URINE BACTERIA RARE /hpf (NONE SEEN); URINE MUCUS MANY
[2018-10-07 11:27] LABS: COCAINE, UR NEGATIVE ng/ml (CUTOFF=300); PHENCYCLIDINE,URINE NEGATIVE ng/ml (CUTOFF=25); URINE AMPHETAMINES NEGATIVE ng/ml (CUTOFF=500); URINE BARBITURATES NEGATIVE ng/ml (CUTOFF=200)
[2018-10-07] MEDS ORDERED: POTASSIUM CHLORIDE ORAL LIQUID 20 MEQ/15 ML PO ONE (12:04)
[2018-10-07 12:13] LABS: METHADONE, UR POSITIVE ng/ml (CUTOFF=300); OPIATES, URI POSITIVE ng/ml (CUTOFF=300)
[2018-10-07 12:14] LABS: URINE BENZODIAZEPINES POSITIVE ng/ml (CUTOFF=200)
[2018-10-07 13:33] VITALS: BP 119/76; PULSE 94; TEMP 98.2
--- NOTE | 2018-10-07 16:47 | EKG ---
Test Reason : Blood Pressure : / mmHG Vent. Rate : 073 BPM Atrial Rate : 073 BPM P-R Int : 120 ms QRS Dur : 096 ms QT Int : 402 ms P-R-T Axes : 053 005 024 degrees QTc Int : 442 ms NORMAL SINUS RHYTHM T WAVE ABNORMALITY, CONSIDER ANTERIOR ISCHEMIA ABNORMAL ECG NO PREVIOUS ECGS AVAILABLE Confirmed by KYLIE MAHONEY MD ([id number]) on 10/07/2018 4:47:13 PM Referred By: Confirmed By:KYLIE MAHONEY MD
== END 2018-10-07 12:30 | disposition home or self-care (01) ==
LOC: JER 08:36
PROC: 3E033GC Introduction of Other Therapeutic Substance into Peripheral Vein, Percutaneous Approach (ICD-10-PCS; principal; 2018-10-07)
PROC: 3E033GC Introduction of Other Therapeutic Substance into Peripheral Vein, Percutaneous Approach (ICD-10-PCS; 2018-10-07)
PROC: 3E033NZ Introduction of Analgesics, Hypnotics, Sedatives into Peripheral Vein, Percutaneous Approach (ICD-10-PCS; 2018-10-07)
DX: K21.9 Gastro-esophageal reflux disease without esophagitis (principal); E87.6 Hypokalemia
CPT/HCPCS: 36415; 80053; 80307; 81003; 81015; 83690; 84703; 85025; 93005; 93010; 99282-25; J0131; J7030

== ENCOUNTER 2018-10-08 02:47 | Emergency (ER) | payer SELFPAY ==
--- NOTE | 2018-10-08 03:15 | PDOC ---
History of Present Illness - General Chief Complaint: Pain, Acute Stated Complaint: VOMITING Time Seen by Provider: 10/08/18 02:54 History Source: Patient Exam Limitations: No Limitations - History of Present Illness Initial Comments: 22 yo F w a pmh of GERD (on pepcid at home) and gastritis presents to the ED after being discharged earlier today. She has been experiencing epigastric and RUQ abdominal pain associated with nausea and non-stop vomiting - NBNB. She has not been able to eat or drink anything today. She was discharged 2 days ago from detox for percocet (15 pills/day) and THC use. She says pepcid at home has not been helping her. She claims she had an endoscopy which did not show anything significant. She says she has not been sexually active for the past 3 months so there is no way she is . She denies any recent fevers, infections, headache, vision changes, chest pain, palpitations, SOB, difficulty breathing, urinary symptoms, blood in the stool, or leg swelling. Social: Pt smokes ~1/2 ppd, admits to chronic THC use, but has reduced THC after abdominal symptoms started. Denying any current alcohol or drug use since leaving detox. Surgical: no relevant history Family: no relevant history [place] [facility] [place] [facility] [place] [employer] referred to earlier today: Dr. Pearl Past History - Past Medical History Allergies/Adverse Reactions: Allergies Allergy/AdvReac Type Severity Reaction Status Date / Time No Known Allergies Allergy Verified 10/07/18 08:54 Home Medications: Ambulatory Orders Famotidine [Pepcid -] 20 mg PO DAILY 08/04/18 Quetiapine Fumarate [Seroquel] 100 mg PO HS #30 tablet 08/05/18 Sertraline HCl [Zoloft] 100 mg PO DAILY #30 tablet 08/05/18 Mag Hydrox/Al Hydrox/Simeth [Mylanta Suspension -] 30 ml PO Q6H PRN #1 bottle Metoclopramide HCl [Reglan] 10 mg PO BID PRN #30 tablet 10/07/18 Anemia: No Asthma: No Cancer: No Cardiac Disorders: No CVA: No COPD: No CHF: No Diabetes: No GI Disorders: No Disorders: Yes (gastritis /acid reflux) HTN: No Hypercholesterolemia: No Kidney Stones: No Liver Disease: No Psychiatric Problems: Yes (marijuana and percocet abuse) Seizures: No Thyroid Disease: No - Surgical History Abdominal Surgery: No Appendectomy: No Cardiac Surgery: No Cholecystectomy: No Lung Surgery: No Neurologic Surgery: No Orthopedic Surgery: No - Reproductive History PID: No - Immunization History Immunization Up to Date: Yes - Suicide/Smoking/Psychosocial Hx Smoking History: Never smoked Have you smoked in the past 12 months: No Number of Cigarettes Smoked Daily: 8 If you are a former smoker, when did you quit?: 1 month ago Information on smoking cessation initiated: No 'Breaking Loose' booklet given: 08/04/18 Hx Alcohol Use: No Drug/Substance Use Hx: No Substance Use Type: Opiates Hx Substance Use Treatment: Yes (last detox 04/2018) Review of Systems - Review of Systems Constitutional: Yes: Loss of Appetite, Malaise, Weakness, Unintentional Wgt. Loss. No: Fever HEENTM: No: Blurred Vision, Difficulty Swallowing Respiratory: No: Cough, Orthopnea, Shortness of Breath, Stridor, Wheezing, Hemoptysis Cardiac (ROS): No: Chest Pain, Edema, Irregular Heart Rate, Lightheadedness, Palpitations, Syncope ABD/GI: Yes: Diarrhea, Nausea, Poor Appetite, Poor Fluid Intake, Vomiting, Indigestion, Abdominal cramping. No: Abdominal Distended, Abd. Pain w/ defecation, Blood Streaked Bowels, Constipated, Difficulty Swallowing, Rectal Bleeding : No: Burning, Dysuria, Discharge, Frequency, Flank Pain, Hematuria Musculoskeletal: No: Back Pain, Joint Pain, Joint Swelling Integumentary: No: Bruising, Change in Color, Dryness, Erythema, Rash Neurological: No: Headache, Numbness, Paresthesia, Tingling, Tremors, Weakness Psychiatric: Yes: Stressors, Emotional Problems, Mood Swings, Change in Appetite. No: Anxiety, Depression Endocrine: No: Excessive Sweating, Flushing, Intolerance to Cold, Intolerance to Heat, Increased Thirst Hematologic/Lymphatic: No: Anemia, Blood Clots, Easy Bleeding, Easy Bruising, Bleeding Diathesis *Physical Exam - Vital Signs Last Vital Signs Temp Pulse Resp BP Pulse Ox 99.0 F 82 20 127/100 98 10/08/18 02:49 10/08/18 02:49 10/08/18 02:49 10/08/18 02:49 10/08/18 02:49 - Physical Exam General Appearance: Yes: Nourished, Appropriately Dressed, Apparent Distress, Disheveled, Mild Distress HEENT: positive: EOMI, STAR, Normal ENT Inspection, Normal Voice Neck: positive: Supple. negative: Decreased range of motion, Lymphadenopathy (R ), Lymphadenopathy (L) Respiratory/Chest: positive: Lungs Clear, Normal Breath Sounds. negative: Respiratory Distress Cardiovascular: positive: Regular Rhythm, Regular Rate, S1, S2 Vascular Pulses: Dorsalis-Pedis (R): 2+, Doralis-Pedis (L): 2+ Gastrointestinal/Abdominal: positive: Normal Bowel Sounds, Tender (RUQ, Epigastric). negative: Guarding, Rebound Rectal Exam: positive: deferred Lymphatic: negative: Adenopathy Musculoskeletal: positive: Normal Inspection. 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 negative: Normal Mood/Affect Moderate Sedation - Procedure Monitoring Vital Signs: Procedure Monitoring Vital Signs Temperature 99.0 F 10/08/18 02:49 Pulse Rate 82 10/08/18 02:49 Respiratory Rate 20 10/08/18 02:49 Blood Pressure 127/100 10/08/18 02:49 O2 Sat by Pulse Oximetry (%) 98 10/08/18 02:49 Procedures - Bedside Ultrasound Bedside Ultrasound: Gallbladder (No gallstones, no wall distension, no pericholecystic fluid, no wall edema) ED Treatment Course - LABORATORY CBC & Chemistry Diagram: 10/08/18 03:36 10/08/18 03:36 Medical Decision Making - Medical Decision Making 22 yo F w a pmh of GERD and gastritis presents with upper abdominal pain, nausea , and vomiting. DDx IBNLT: gallstones, cholecystitis, GERD, cyclic vomiting, Cannabanoid emesis syndrome, gastroenteritis, pancreatitis, IBS Plan: Cbc, Cmp, lipase, ekg, zofran, IV hydration, RUQ us, re-assess. Lipase unremarkable. EKG same as earlier today Labs slightly improved from earlier today. -Zofran did not help much. Will give reglan. -giving patient 2 liters of IV hydration. Bedside US showed no evidence of gallstones or cholecystitis. - No shadowing. No wall edema. No pericholecystic fluid accumulation. Giving patient GI cocktail and seeing how she does. She feels much better and is now drinking water and eating crackers and bread. Will DC patient with GI FU. *DC/Admit/Observation/Transfer Diagnosis at time of Disposition: GERD (gastroesophageal reflux disease), Nausea & vomiting, Gastritis - Discharge Dispostion Disposition: HOME Condition at time of disposition: Improved Decision to Admit order: No - Referrals Referrals: Travon Pearl MD [Staff Physician] - [facility] [place] [facility] [place] Group] - Patient Instructions Printed Discharge Instructions: DI for Vomiting -- Adult Additional Instructions: You were seen in the ER today for nausea and vomiting, which improved after the medications we provided. Please follow-up with your primary care doctor and GI doctor within 1-2 days to discuss your visit and make sure your symptoms have improved. Please return to the ER if you have any worsening pain, blood in your stool or vomit, development of fevers or chills which does not improve with tylenol or ibuprofen use, loss of consciousness, inability to tolerate food or fluids, or any other concerns. Print Language: GEORGIAN - Post Discharge Activity
[2018-10-08 03:33] VITALS: BP 127/100; PULSE 82; TEMP 99; BMI 11.7
[2018-10-08] MEDS ORDERED: ONDANSETRON 4 MG/2 ML VIAL IVPUSH ONE (03:33)
[2018-10-08] MEDS ORDERED: SODIUM CHLORIDE 0.9% 500 ML INFUS.BAG IV ONE ×2 (03:33→04:55)
[2018-10-08] MEDS ORDERED: ONDANSETRON 4 MG/2 ML VIAL ONE (03:40)
[2018-10-08 03:50] LABS: BASO % 0.4 % (0-2.0); EOS % 0.1 % (0-4.5); HEMATOCRIT 38.5 % (32.4-45.2); HEMOGLOBIN 13.9 GM/dL (10.7-15.3); LYMPH % 12.1 % (8-40); MCH 34.8 pg (25.7-33.7); MEAN CELL VOLUME 96.7 fl (80-96); MEAN PLT VOLUME 6.9 fl (7.5-11.1); NEUT % 80.4 % (42.8-82.8); PLATELET COUNT 277 K/MM3 (134-434); RBC 3.98 M/mm3 (3.60-5.2); RDW 12.3 % (11.6-15.6); WHITE BLOOD COUNT 12.3 K/mm3 (4.0-10.0)
[2018-10-08] MEDS ORDERED: IBUPROFEN 600 MG TABLET (FP) PO ONE ×2 (03:53→03:58)
[2018-10-08 04:14] LABS: ALK PHOS 47 U/L (45-117); ANION GAP 9 MMOL/L (8-16); BILIRUBIN,TOTAL 1.3 mg/dL (0.2-1); BLOOD UREA NITROGEN 13 mg/dL (7-18); CALCIUM 8.5 mg/dL (8.5-10.1); CHLORIDE 101 mmol/L (98-107); CO2 27 mmol/L (21-32); CREATININE 0.7 mg/dL (0.55-1.3); GLUCOSE,RANDOM 107 mg/dL (74-106); LIPASE 187 U/L (73-393); POTASSIUM 3.4 mmol/L (3.5-5.1); SGOT/AST 19 U/L (15-37); SGPT/ALT 20 U/L (13-61); SODIUM 137 mmol/L (136-145); TOT PROT 6.7 g/dl (6.4-8.2)
--- NOTE | 2018-10-08 04:29 | PDOC ---
Attending Attestation - Resident Resident Name: Keyon Aguilar - ED Attending Attestation I have performed the following: I have examined & evaluated the patient, The case was reviewed & discussed with the resident, I agree w/resident's findings & plan, Exceptions are as noted - HPI HPI: 10/08/18 06:17 22F here with abd px, n/v, nbnb was seen and discharged earlier today. - Physicial Exam PE: 10/08/18 06:17 Abd soft, +epigastric ttp, no guarding, no rebound - Medical Decision Making 10/08/18 06:18 Pt endorsing subjective epigastric and RUQ px, no tenderness on exam to RUQ POCUS w/o any acute pathology symptomatic tx re-eval 10/08/18 06:19 symptoms resolved with tx dc, f/u as instructed
[2018-10-08] MEDS ORDERED: POTASSIUM CHLORIDE ORAL LIQUID 20 MEQ/15 ML PO ONE (04:53)
[2018-10-08] MEDS ORDERED: FAMOTIDINE 20 MG/50 ML IVPB 20 MG/50 ML MG IVPB ONE ×2 (04:54→05:09)
[2018-10-08] MEDS ORDERED: METOCLOPRAMIDE HCL INJECTION 10 MG/2 ML VIAL IVPUSH ONE (04:54)
[2018-10-08] MEDS ORDERED: MAG HYDROX/AL HYDROX/SIMETH -MYLANTA- ORAL SUSPENSION PO ONE (04:55)
[2018-10-08] MEDS ORDERED: KCL 10 MEQ IVPB 10 MEQ/100 ML INFUS.BAG IVPB SCH (05:00)
[2018-10-08] MEDS ORDERED: METOCLOPRAMIDE HCL INJECTION 10 MG/2 ML VIAL ONE (05:08)
[2018-10-08] MEDS ORDERED: POTASSIUM CHLORIDE ORAL LIQUID 20 MEQ/15 ML ONE (05:09)
[2018-10-08] MEDS ORDERED: KCL 10 MEQ IVPB 10 MEQ/100 ML INFUS.BAG IVPB ONE (05:09)
[2018-10-08] MEDS ORDERED: MAG HYDROX/AL HYDROX/SIMETH 30 ML UNIT-DOSE CUP ONE (05:29)
--- NOTE | 2018-10-08 12:10 | EKG ---
Test Reason : Blood Pressure : / mmHG Vent. Rate : 080 BPM Atrial Rate : 080 BPM P-R Int : 114 ms QRS Dur : 090 ms QT Int : 392 ms P-R-T Axes : 034 009 019 degrees QTc Int : 452 ms NORMAL SINUS RHYTHM T WAVE ABNORMALITY, CONSIDER ANTERIOR ISCHEMIA ABNORMAL ECG WHEN COMPARED WITH ECG OF 07-OCT-2018 08:53, NO SIGNIFICANT CHANGE WAS FOUND Confirmed by TOOTIE NICOLE, LARISA ([id number]) on 10/08/2018 12:10:29 PM Referred By: Confirmed By:LARISA SOMEMRS MD
== END 2018-10-08 06:49 | disposition home or self-care (01) ==
LOC: JER 02:47
PROC: 3E033GC Introduction of Other Therapeutic Substance into Peripheral Vein, Percutaneous Approach (ICD-10-PCS; principal; 2018-10-08)
PROC: 3E0337Z Introduction of Electrolytic and Water Balance Substance into Peripheral Vein, Percutaneous Approach (ICD-10-PCS; 2018-10-08)
PROC: 3E033GC Introduction of Other Therapeutic Substance into Peripheral Vein, Percutaneous Approach (ICD-10-PCS; 2018-10-08)
PROC: 3E033GC Introduction of Other Therapeutic Substance into Peripheral Vein, Percutaneous Approach (ICD-10-PCS; 2018-10-08)
DX: K21.9 Gastro-esophageal reflux disease without esophagitis (principal); K29.70 Gastritis, unspecified, without bleeding
CPT/HCPCS: 36415; 80053; 83690; 85025; 93005; 93010; 99282-25

== ENCOUNTER 2018-11-16 10:27 | Emergency (ER) | payer SELFPAY ==
[2018-11-16 11:08] VITALS: BP 118/60; PULSE 94; TEMP 98
[2018-11-16] MEDS ORDERED: MAG HYDROX/AL HYDROX/SIMETH 30 ML UNIT-DOSE CUP PO ONE (11:19)
[2018-11-16] MEDS ORDERED: ONDANSETRON *ODT* 4 MG TABLET SL ONE (11:19)
[2018-11-16] MEDS ORDERED: RANITIDINE HCL 150 MG TABLET (FP) PO ONE (11:20)
[2018-11-16] MEDS ORDERED: ONDANSETRON 4 MG/2 ML VIAL IVPUSH ONE (11:53)
[2018-11-16] MEDS ORDERED: SODIUM CHLORIDE 0.9% 500 ML INFUS.BAG IV ONE (11:53)
[2018-11-16] MEDS ORDERED: FAMOTIDINE 20 MG/50 ML IVPB 20 MG/50 ML MG IVPB ONE ×2 (11:53→12:37)
[2018-11-16] MEDS ORDERED: DICYCLOMINE HCL 20 MG TABLET PO ONE (11:54)
--- NOTE | 2018-11-16 12:00 | PDOC ---
History of Present Illness - General Chief Complaint: Revisit, Lab Variance Stated Complaint: EVALUATION Time Seen by Provider: 11/16/18 11:18 History Source: Patient Exam Limitations: No Limitations - History of Present Illness Initial Comments: 11/16/18 11:59 22 yo F w a pmh of GERD (on pepcid at home) and gastritis, s/p detox for percocet and cannibis use in September 2018 presenting with acute onset of nausea , NBNB emesis and epigastric AP since 9AM today, after binge drinking alcohol last night for the Superbowl. Describing epigastric pain as burning and difficulty tolerating PO intake. No sick contacts or travel. Usually takes pepcid for her chronic gastritis. Denies fever, chills, chest pain, SOB, palpitation, dizziness, weakness, N, V, D Denies drug use today, denies chronic ETOH use. Allergies: NKA Social: Pt smokes ~1/2 ppd, admits to chronic THC use, but has reduced THC after abdominal symptoms started. Denying any current alcohol or drug use since leaving detox. Surgical: no relevant history Family: no relevant history ROS Constitutional: no fevers or chills. HEENT: no headache or dizziness. CVS: no cp or syncope. Resp: no sob. No cough. Gastrointestinal: + abdominal pain, nausea or vomiting. No diarrhea. No bloody stools no hemetemesis. Genitourinary: no urinary sx, hematuria. MUSCULOSKELETAL: No joint pain and swelling. No neck or back pain. SKIN: no redness or skin changes, no discharge, no rash. No wounds. Hematologic: no easy bruising/bleeding. NEUROLOGIC: No headache, dizziness, LOC or altered mental status. No weakness, numbness or tingling. Allergic/Immunologic: no allergies All other systems reviewed and negative, or as documented in HPI. PE: General: uncomfortable, mild distress 2/2 nausea/vomiting. Thin young female. HEENT: NCAT, PERRL, EOMI, clear conjunctiva, anicteric, dry mucus membranes, clear oropharynx, no oral lesions.. Neck: neck supple, FROM Resp: CTAB, normal and even respirations, no respiratory distress CVS: RRR, no murmurs, 2+ peripheral pulses throughout, no peripheral edema Abdomen: soft, +epigastric AP, no rebound or guarding. No murphys sign. No abdominal distension. Back: nontender, normal inspection and ROM MSK: no edema, GUTIERRES x4, ROM intact. No clubbing or cyanosis. normal bulk and tone. Neuro: alert, oriented appropriately; no focal neurologic deficits Skin: warm and well perfused, cap refill <2 sec, normal color Past History - Past Medical History Allergies/Adverse Reactions: Allergies Allergy/AdvReac Type Severity Reaction Status Date / Time No Known Allergies Allergy Verified 11/16/18 11:08 Home Medications: Ambulatory Orders Famotidine [Pepcid -] 20 mg PO DAILY 08/04/18 Quetiapine Fumarate [Seroquel] 100 mg PO HS #30 tablet 08/05/18 Sertraline HCl [Zoloft] 100 mg PO DAILY #30 tablet 08/05/18 Mag Hydrox/Al Hydrox/Simeth [Mylanta Suspension -] 30 ml PO Q6H PRN #1 bottle Metoclopramide HCl [Reglan] 10 mg PO BID PRN #30 tablet 10/07/18 Anemia: No Asthma: No Cancer: No Cardiac Disorders: No CVA: No COPD: No CHF: No Diabetes: No GI Disorders: No Disorders: Yes (gastritis /acid reflux) HTN: No Hypercholesterolemia: No Kidney Stones: No Liver Disease: No Psychiatric Problems: Yes (marijuana and percocet abuse) Seizures: No Thyroid Disease: No - Surgical History Abdominal Surgery: No Appendectomy: No Cardiac Surgery: No Cholecystectomy: No Lung Surgery: No Neurologic Surgery: No Orthopedic Surgery: No - Reproductive History PID: No - Immunization History Immunization Up to Date: Yes - Suicide/Smoking/Psychosocial Hx Smoking History: Never smoked Have you smoked in the past 12 months: No Number of Cigarettes Smoked Daily: 8 If you are a former smoker, when did you quit?: 1 month ago Information on smoking cessation initiated: No 'Breaking Loose' booklet given: 08/04/18 Hx Alcohol Use: No Drug/Substance Use Hx: No Substance Use Type: Opiates Hx Substance Use Treatment: Yes (last detox 04/2018) *Physical Exam - Vital Signs Last Vital Signs Temp Pulse Resp BP Pulse Ox 98.0 F 94 H 16 118/60 98 11/16/18 10:27 11/16/18 10:27 11/16/18 10:27 11/16/18 10:27 11/16/18 10:27 Moderate Sedation - Procedure Monitoring Vital Signs: Procedure Monitoring Vital Signs Temperature 98.0 F 11/16/18 10:27 Pulse Rate 94 H 11/16/18 10:27 Respiratory Rate 16 11/16/18 10:27 Blood Pressure 118/60 11/16/18 10:27 O2 Sat by Pulse Oximetry (%) 98 11/16/18 10:27 Medical Decision Making - Medical Decision Making 11/16/18 11:59 hpi as documented VS wnl. normotensive. DDx. alcohol poisoning, gastritis, GERD, PUD, dehydration, electrolyte/ metabolic derangements, . Given medications IVF, pepcid, maalox and zofran, with clinical improvement. Tolerating oral intake. Vital signs reviewed and are normal. requesting fluids, which we gave a cup. however, noted at 1430, not in department, no labs were done apparently, IV in place by EMS. unable to find in department, eloped from department. PD called to recall patient given IV unsure if removed. 11/16/18 14:43 *DC/Admit/Observation/Transfer Diagnosis at time of Disposition: Nausea & vomiting Qualifiers: Vomiting type: unspecified Vomiting Intractability: non-intractable Qualified Code(s): R11.2 - Nausea with vomiting, unspecified - Discharge Dispostion Disposition: ELOPED Condition at time of disposition: Stable Decision to Admit order: No - Referrals Referrals: [facility] [place] [facility] [Provider Group] [facility] [Provider Group] - Patient Instructions Printed Discharge Instructions: DI for Gastroesophageal Reflux Disease (GERD), DI for Abdominal Pain-Adult, DI for Vomiting -- Adult, DI for Alcoholic Gastritis - Post Discharge Activity
[2018-11-16] MEDS ORDERED: DICYCLOMINE HCL 10 MG CAPSULE ONE (12:37)
[2018-11-16] MEDS ORDERED: ONDANSETRON 4 MG/2 ML VIAL ONE (12:37)
[2018-11-16] MEDS ORDERED: MAG HYDROX/AL HYDROX/SIMETH 30 ML UNIT-DOSE CUP ONE (12:37)
== END 2018-11-16 17:00 | disposition left against medical advice (07) ==
LOC: JER 10:27
PROC: 3E033GC Introduction of Other Therapeutic Substance into Peripheral Vein, Percutaneous Approach (ICD-10-PCS; principal; 2018-11-16)
PROC: 3E033GC Introduction of Other Therapeutic Substance into Peripheral Vein, Percutaneous Approach (ICD-10-PCS; 2018-11-16)
DX: R11.2 Nausea with vomiting, unspecified (principal); F10.10 Alcohol abuse, uncomplicated; Z87.19 Personal history of other diseases of the digestive system
CPT/HCPCS: 99281-25

== ENCOUNTER 2019-04-07 10:16 | Inpatient (IN) | payer OTHER ==
[2019-04-07 10:47] VITALS: BMI 23.6
--- NOTE | 2019-04-07 11:33 | HP ---
COWS - Scale Resting Pulse: 1= MO 81-100 Sweatin= Chills/Flushing Restless Observation: 1= Difficult to Sit Still Pupil Size: 1= Pupils >than Normal Bone or Joint Aches: 2= Severe Diffuse Aches Runny Nose/ Eye Tearin= Nasal Congestion GI Upset > 30mins: 2= Nausea/Diarrhea Tremor Observation: 2= Slight Tremor Visible Yawning Observation: 1= 1-2x During Session Anxiety or Irritability: 2=Irritable/Anxious Goose Flesh Skin: 0=Smooth Skin COWS Score: 14 CIWA Score - Admission Criteria [facility] Guidelines: Admission for Medically Managed Detox: Requires at least one of the followin. CIWA greater than 12 2. Seizures within the past 24 hours 3. Delirium tremens within the past 24 hours 4. Hallucinations within the past 24 hours 5. Acute intervention needed for co occurring medical disorder 6. Acute intervention needed for co occurring psychiatric disorder 7. Severe withdrawal that cannot be handled at a lower level of care (continued vomiting, continued diarrhea, abnormal vital signs) requiring intravenous medication and/or fluids 8. Admission ROS S - HPI Chief Complaint: i need help to stop using percocet and marijuana Allergies/Adverse Reactions: Allergies Allergy/AdvReac Type Severity Reaction Status Date / Time No Known Allergies Allergy Verified 04/07/19 10:38 History of Present Illness: this 23 years old female with percocet and marijuana dependence,withdrawal symptom,seeking detox, has previous admission before,last admission 10/01/18 to 10/09/18 gastritis nicotine dependence 10 cigarette/day,would like ti have nicotine patch and gum weight loss depression,ptsd Exam Limitations: No Limitations - Ebola screening Have you traveled outside of the country in the last 21 days: No (N) Have you had contact with anyone from an Ebola affected area: No Do you have a fever: No - Review of Systems Constitutional: Chills, Loss of Appetite, Malaise, Night Sweats, Changes in sleep, Weakness, Unintentional Wgt. Loss EENT: reports: Tearing, Nose Congestion Respiratory: reports: No Symptoms reported Cardiac: reports: No Symptoms Reported GI: reports: Nausea, Indigestion, Abdominal cramping : reports: No Symptoms Reported Musculoskeletal: reports: Back Pain, Muscle Pain Integumentary: reports: Dryness Neuro: reports: Headache, Tremors Endocrine: reports: No Symptoms Reported Hematology: reports: No Symptoms Reported Psychiatric: reports: No Sypmtoms Reported, Judgement Intact, Mood/Affect Appropiate, Orientated x3, Depressed, other (ptsd) Other Systems: Reviewed and Negative Patient History - Patient Medical History Hx Anemia: No Hx Asthma: No Hx Chronic Obstructive Pulmonary Disease (COPD): No Hx Cancer: No Hx Cardiac Disorders: No Hx Congestive Heart Failure: No Hx Hypertension: No Hx Hypercholesterolemia: No Hx Pacemaker: No HX Cerebrovascular Accident: No Hx Seizures: No Hx Diabetes: No Hx Gastrointestinal Disorders: No Hx Liver Disease: No Hx Genitourinary Disorders: Yes (gastritis /acid reflux) Hx Sexually Transmitted Disorders: No Hx Renal Disease (ESRD): No Hx Thyroid Disease: No Hx Human Immunodeficiency Virus (HIV): No (last 02/28 negative) Hx Hepatitis C: No Hx Depression: Yes Hx Suicide Attempt: No Hx Bipolar Disorder: No Hx Schizophrenia: No Other Medical History: ptsd,no suicidal,no homicidal - Patient Surgical History Past Surgical History: No Hx Neurologic Surgery: No Hx Cataract Extraction: No Hx Cardiac Surgery: No Hx Lung Surgery: No Hx Breast Surgery: No Hx Breast Biopsy: No Hx Abdominal Surgery: No Hx Appendectomy: No Hx Cholecystectomy: No Hx Genitourinary Surgery: No Hx Section: No Hx Orthopedic Surgery: No Anesthesia Reaction: No - PPD History Previous Implant?: Yes Documented Results: Negative w/proof Date: 10/03/18 Results: 0 mm PPD to be Administered?: No - Reproductive History Patient is a Female of Child Bearing Age (11 -55 yrs old): Yes Last Menstrual Period: 03/07/19 Patient : No - Smoking Cessation Smoking history: Current every day smoker Have you smoked in the past 12 months: No Aproximately how many cigarettes per day: 10 Hx Chewing Tobacco Use: No Initiated information on smoking cessation: Yes 'Breaking Loose' booklet given: 04/07/19 - Substance & Tx. History Hx Alcohol Use: No Hx Substance Use: Yes Substance Use Type: Marijuana, Opiates Hx Substance Use Treatment: Yes ([facility] 10/01/18 to 10/05/18) - Substances abused Other Other (specify): percocet Substance route: Oral Frequency: Daily Amount used: 10mg/325 mg tab about 200-250 Age of first use: 14 Date of last use: 04/06/19 Marijuana/Hashish Substance route: Smoking Frequency: Daily Amount used: $100/day Age of first use: 14 Date of last use: 04/06/19 Family Disease History - Family Disease History Family Disease History: Other: Father (dsa), Mother (dsa), Sister (OPIOID ADDICTION) Admission Physical Exam [facility] - Vital Signs Vital Signs: Vital Signs - 24 hr 04/07/19 10:34 Temperature 99.2 F Pulse Rate 86 Respiratory 17 Rate Blood Pressure 89/56 L - Physical General Appearance: Yes: Tremorous, Irritable, Sweating, Anxious HEENTM: Yes: Normal ENT Inspection, STAR, Pharynx Normal, Nasal Congestion Respiratory: Yes: Lungs Clear, Normal Breath Sounds Neck: Yes: Within Normal Limits, Supple, Trachea in good position Breast: Yes: Breast Exam Deferred Cardiology: Yes: Within Normal Limits, Regular Rhythm, Regular Rate, S1, S2 Abdominal: Yes: Within Normal Limits, Normal Bowel Sounds, Non Tender, Soft Genitourinary: Yes: Within Normal Limits Back: Yes: Muscle Spasm Musculoskeletal: Yes: Back pain, Joint Stiffness, Muscle Pain Extremities: Yes: Normal Range of Motion, Tremors Neurological: Yes: database management system specialist II-XII NML intact, Fully Oriented, Alert, Motor Strength 5/5 Integumentary: Yes: Dry Lymphatic: Yes: Within Normal Limits - Diagnostic (1) Opioid dependence with withdrawal Current Visit: No Status: Acute (2) Cannabis dependence Current Visit: No Status: Chronic (3) GERD (gastroesophageal reflux disease) Current Visit: No Status: Chronic Qualifiers: (4) Gastritis Current Visit: No Status: Chronic Qualifiers: (5) Nicotine dependence Current Visit: No Status: Chronic Qualifiers: Nicotine product type: cigarettes Substance use status: uncomplicated Qualified Code(s): F17.210 - Nicotine dependence, cigarettes, uncomplicated (6) Depression Current Visit: Yes Status: Acute (7) PTSD (post-traumatic stress disorder) Current Visit: Yes Status: Acute Cleared for Admission [facility] - Detox or Rehab [facility] Level of Care: Medically Managed Detox Regimen/Protocol: Methadone Screened but not Admitted - Documentation of Visit Screened but not Admitted: No Inpatient Rehab Admission - Rehab Decision to Admit Inpatient rehab admission?: No
[2019-04-07] MEDS ORDERED: cloNIDine HCL 0.1 MG TABLET PO PRN (11:44)
[2019-04-07] MEDS ORDERED: MAG HYDROX/AL HYDROX/SIMETH 30 ML UNIT-DOSE CUP PO PRN (11:50)
[2019-04-07] MEDS ORDERED: MAGNESIUM CITRATE 300 ML BOTTLE PO PRN (11:50)
[2019-04-07] MEDS ORDERED: IBUPROFEN 400 MG TABLET (FP) PO PRN (11:50)
[2019-04-07] MEDS ORDERED: MENTHOL/PHENOL 1 EACH UD MM PRN (11:50)
[2019-04-07] MEDS ORDERED: ACETAMINOPHEN 325 MG TABLET (FP) PO PRN ×2 (11:50)
[2019-04-07] MEDS ORDERED: BISMUTH SUBSALICYLATE 524 MG/30 ML UD PO PRN (11:50)
[2019-04-07] MEDS ORDERED: MAGNESIUM HYDROX 2400MG/30ML ORAL SUSPENSION 30 ML CUP PO PRN (11:50)
[2019-04-07] MEDS ORDERED: NICOTINE POLACRILEX 2 MG GUM BUC PRN (11:50)
[2019-04-07] MEDS ORDERED: METHADONE HCL 10 MG TABLET (FOR DETOX USE ONLY) PO ONE ×2 (12:25→23:00)
[2019-04-07] MEDS: diazePAM 5 MG TABLET PO PRN ×3 (12:57→23:49)
[2019-04-07] MEDS: NICOTINE 21 MG/24 HOURS TOPICAL PATCH TD SCH (12:59)
[2019-04-07 17:01] LABS: ALBUMIN 3.7 g/dl (3.4-5.0); BILIRUBIN,TOTAL 0.4 mg/dL (0.2-1); CALCIUM 8.8 mg/dL (8.5-10.1); CREATININE 0.7 mg/dL (0.55-1.3); POTASSIUM 3.9 mmol/L (3.5-5.1); TOT PROT 6.4 g/dl (6.4-8.2)
[2019-04-07 18:15] LABS: HEMATOCRIT 39.5 % (32.4-45.2); HEMOGLOBIN 13.2 GM/dL (10.7-15.3); MCH 33.6 pg (25.7-33.7); MCHC 33.4 g/dl (32.0-36.0); MEAN CELL VOLUME 100.5 fl (80-96); MEAN PLT VOLUME 7.9 fl (7.5-11.1); PLATELET COUNT 261 K/MM3 (134-434); RBC 3.93 M/mm3 (3.60-5.2); RDW 13.8 % (11.6-15.6); WHITE BLOOD COUNT 6.6 K/mm3 (4.0-10.0)
[2019-04-07 20:54] LABS: PH,URINE 5.5 (5.0-8.0); URINE APPEARANCE CLEAR; URINE BILIRUBIN NEGATIVE (NEGATIVE); URINE COLOR YELLOW; URINE GLUCOSE (UA) NEGATIVE (NEGATIVE); URINE KETONE NEGATIVE (NEGATIVE); URINE LEUK ESTERASE 1+ (NEGATIVE); URINE NITRITE NEGATIVE (NEGATIVE); URINE PROTEIN NEGATIVE (NEGATIVE); URINE UROBILINOGEN 0.2 mg/dL (0.2-1.0)
[2019-04-07 21:18] LABS: EPI CELLS 8.8 /HPF (0-5/HPF); URINE RBC 1.4 /hpf (0-4); URINE WBC 7.3 /hpf (0-5)
[2019-04-07 21:19] LABS: YEAST 2+ (NEGATIVE)
[2019-04-07] MEDS ORDERED: QUEtiapine FUMARATE 100 MG TABLET (FP) PO SCH (22:00)
[2019-04-07] MEDS: RANITIDINE HCL 150 MG TABLET (FP) PO SCH (23:02)
[2019-04-07] MEDS: THIAMINE HCL 100 MG TABLET (FP) PO SCH (23:02)
[2019-04-08] MEDS ORDERED: METHADONE HCL 10 MG TABLET (FOR DETOX USE ONLY) PO ONE (10:00)
[2019-04-08] MEDS: NICOTINE 21 MG/24 HOURS TOPICAL PATCH TD SCH (10:44)
[2019-04-08] MEDS: RANITIDINE HCL 150 MG TABLET (FP) PO SCH ×2 (10:44→22:22)
[2019-04-08] MEDS: PRENATAL VITAMINS W/ FOLIC ACID TABLET (FP) PO SCH (10:44)
[2019-04-08] MEDS: METHOCARBAMOL 500 MG TABLET PO PRN (10:48)
[2019-04-08] MEDS: diazePAM 5 MG TABLET PO PRN ×2 (10:48→22:25)
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
--- NOTE | 2019-04-08 12:49 | PN ---
[facility] COWS - Scale Resting Pulse: 0= DC 80 or Below Sweatin=Flushed/Facial Moisture Restless Observation: 1= Difficult to Sit Still Pupil Size: 0= Normal to Room Light Bone or Joint Aches: 2= Severe Diffuse Aches Runny Nose/ Eye Tearin= Runny Nose/Eyes GI Upset > 30mins: 0= None Tremor Observation of Outstretched Hands: 2= Slight Tremor Visible Yawning Observation: 2= >3x During Session Anxiety or Irritability: 2=Irritable/Anxious Goose Flesh Skin: 0=Smooth Skin COWS Score: 13 [facility] Progress Note (SOAP) Subjective: sweats shakes interrupted sleep body aches muscle aches Objective: 04/08/19 12:47 Vital Signs Temperature 97.3 F L 04/08/19 09:39 Pulse Rate 59 L 04/08/19 09:39 Respiratory Rate 16 04/08/19 09:39 Blood Pressure 102/50 L 04/08/19 09:39 O2 Sat by Pulse Oximetry (%) Laboratory Tests 04/07/19 04/07/19 04/07/19 11:40 11:40 11:40 WBC 6.6 RBC 3.93 Hgb 13.2 Hct 39.5 MCV 100.5 H MCH 33.6 MCHC 33.4 RDW 13.8 D Plt Count 261 MPV 7.9 D Sodium 138 Potassium 3.9 Chloride 105 Carbon Dioxide 25 Anion Gap 8 BUN 9.0 Creatinine 0.7 Est GFR (CKD-EPI)AfAm 141.54 Est GFR (CKD-EPI)NonAf 122.12 Random Glucose 91 Calcium 8.8 Total Bilirubin 0.4 AST 10 L ALT 16 Alkaline Phosphatase 54 Total Protein 6.4 Albumin 3.7 Urine Color Urine Appearance Urine pH Ur Specific [place] Urine Protein Urine Glucose (UA) Urine Ketones Urine Blood Urine Nitrite Urine Bilirubin Urine Urobilinogen Ur Leukocyte Esterase Urine WBC (Auto) Urine RBC (Auto) U Pathogenic Cast Auto U Epithel Cells (Auto) Urine Bacteria (Auto) Urine Yeast (Auto) POC Urine HCG, Qual RPR Titer Nonreactive 04/07/19 04/07/19 11:42 14:30 WBC RBC Hgb Hct MCV MCH MCHC RDW Plt Count MPV Sodium Potassium Chloride Carbon Dioxide Anion Gap BUN Creatinine Est GFR (CKD-EPI)AfAm Est GFR (CKD-EPI)NonAf Random Glucose Calcium Total Bilirubin AST ALT Alkaline Phosphatase Total Protein Albumin Urine Color Yellow Urine Appearance Clear Urine pH 5.5 Ur Specific [place] 1.007 L Urine Protein Negative Urine Glucose (UA) Negative Urine Ketones Negative Urine Blood Negative Urine Nitrite Negative Urine Bilirubin Negative Urine Urobilinogen 0.2 Ur Leukocyte Esterase 1+ H Urine WBC (Auto) 7.3 Urine RBC (Auto) 1.4 U Pathogenic Cast Auto No Result Required. U Epithel Cells (Auto) 8.8 Urine Bacteria (Auto) 397.0 Urine Yeast (Auto) 2+ POC Urine HCG, Qual Negative RPR Titer labs noted repeat u/a aaox3 ambulating no acute distress pt denies of any s/s of uti Assessment: 04/08/19 12:49 withdrawal sx Plan: continue detox increase fluids u/a ordered
[2019-04-08] MEDS: SERTRALINE HCL 25 MG TABLET (FP) PO SCH (14:06)
[2019-04-08] MEDS: THIAMINE HCL 100 MG TABLET (FP) PO SCH (22:22)
[2019-04-08] MEDS: MELATONIN 5 MG TABLETS PO PRN (22:23)
[2019-04-08] MEDS: SUVOREXANT 10 MG TABLET PO PRN (22:24)
[2019-04-09] MEDS ORDERED: METHADONE HCL 10 MG TABLET (FOR DETOX USE ONLY) PO ONE (10:00)
[2019-04-09] MEDS: PRENATAL VITAMINS W/ FOLIC ACID TABLET (FP) PO SCH (10:53)
[2019-04-09] MEDS: RANITIDINE HCL 150 MG TABLET (FP) PO SCH ×2 (10:53→22:32)
[2019-04-09] MEDS: SERTRALINE HCL 25 MG TABLET (FP) PO SCH (10:53)
[2019-04-09] MEDS: NICOTINE 21 MG/24 HOURS TOPICAL PATCH TD SCH (10:54)
[2019-04-09] MEDS: diazePAM 5 MG TABLET PO PRN ×2 (10:55→17:26)
[2019-04-09] MEDS ORDERED: ONDANSETRON *ODT* 4 MG TABLET SL PRN (11:13)
--- NOTE | 2019-04-09 12:58 | PN ---
[facility] CIWA - CIWA Score Nausea/Vomitin-No Nausea/No Vomiting Muscle Tremors: 3 Anxiety: 3 Agitation: 3 Paroxysmal Sweats: 2 Orientation: 0-Oriented Tacttile Disturbances: 0-None Auditory Disturbances: 0-None Visual Disturbances: 0-None Headache: 0-None Present CIWA-Ar Total Score: 11 [facility] Progress Note (SOAP) Subjective: pain to my right toe after a stepped on something at home sweats agitation body aches anxiety Objective: 04/09/19 12:56 Vital Signs Temperature 99.3 F 04/09/19 09:32 Pulse Rate 90 04/09/19 09:32 Respiratory Rate 18 04/09/19 09:32 Blood Pressure 117/63 04/09/19 09:32 O2 Sat by Pulse Oximetry (%) Laboratory Tests 04/07/19 04/07/19 04/07/19 11:40 11:40 11:40 WBC 6.6 RBC 3.93 Hgb 13.2 Hct 39.5 MCV 100.5 H MCH 33.6 MCHC 33.4 RDW 13.8 D Plt Count 261 MPV 7.9 D Sodium 138 Potassium 3.9 Chloride 105 Carbon Dioxide 25 Anion Gap 8 BUN 9.0 Creatinine 0.7 Est GFR (CKD-EPI)AfAm 141.54 Est GFR (CKD-EPI)NonAf 122.12 Random Glucose 91 Calcium 8.8 Total Bilirubin 0.4 AST 10 L ALT 16 Alkaline Phosphatase 54 Total Protein 6.4 Albumin 3.7 Urine Color Urine Appearance Urine pH Ur Specific [place] Urine Protein Urine Glucose (UA) Urine Ketones Urine Blood Urine Nitrite Urine Bilirubin Urine Urobilinogen Ur Leukocyte Esterase Urine WBC (Auto) Urine RBC (Auto) U Pathogenic Cast Auto U Epithel Cells (Auto) Urine Bacteria (Auto) Urine Yeast (Auto) POC Urine HCG, Qual RPR Titer Nonreactive 04/07/19 04/07/19 11:42 14:30 WBC RBC Hgb Hct MCV MCH MCHC RDW Plt Count MPV Sodium Potassium Chloride Carbon Dioxide Anion Gap BUN Creatinine Est GFR (CKD-EPI)AfAm Est GFR (CKD-EPI)NonAf Random Glucose Calcium Total Bilirubin AST ALT Alkaline Phosphatase Total Protein Albumin Urine Color Yellow Urine Appearance Clear Urine pH 5.5 Ur Specific [place] 1.007 L Urine Protein Negative Urine Glucose (UA) Negative Urine Ketones Negative Urine Blood Negative Urine Nitrite Negative Urine Bilirubin Negative Urine Urobilinogen 0.2 Ur Leukocyte Esterase 1+ H Urine WBC (Auto) 7.3 Urine RBC (Auto) 1.4 U Pathogenic Cast Auto No Result Required. U Epithel Cells (Auto) 8.8 Urine Bacteria (Auto) 397.0 Urine Yeast (Auto) 2+ POC Urine HCG, Qual Negative RPR Titer pending on repeated u/a aaox3 ambulating no acute distress Assessment: 04/09/19 12:56 withdrawal sx toe assessed, blister and edi to site area, bacitracin oint ordered. encouraged to soak foot/toe with warm water Plan: continue detox increase fluids
[2019-04-09] MEDS: BACITRACIN 15 GM TUBE TOPICAL OINTMENT TP SCH (13:57)
[2019-04-09] MEDS: hydrOXYzine PAMOATE 25 MG CAPSULE (FP) PO PRN (15:40)
[2019-04-09] MEDS: THIAMINE HCL 100 MG TABLET (FP) PO SCH (22:32)
[2019-04-09] MEDS: MELATONIN 5 MG TABLETS PO PRN (22:35)
[2019-04-09] MEDS: SUVOREXANT 10 MG TABLET PO PRN (22:35)
[2019-04-10] MEDS: diazePAM 5 MG TABLET PO PRN ×2 (01:13→11:23)
[2019-04-10] MEDS: hydrOXYzine PAMOATE 25 MG CAPSULE (FP) PO PRN ×2 (01:14→18:44)
[2019-04-10] MEDS: METHOCARBAMOL 500 MG TABLET PO PRN ×2 (01:16→18:45)
[2019-04-10] MEDS ORDERED: METHADONE HCL 10 MG TABLET (FOR DETOX USE ONLY) ONE (10:00)
[2019-04-10] MEDS ORDERED: METHADONE HCL 10 MG TABLET (FOR DETOX USE ONLY) PO ONE (10:00)
[2019-04-10] MEDS ORDERED: METHADONE (DETOX) 10 MG, METHADONE (DETOX) 5 MG PO ONE (10:00)
[2019-04-10] MEDS ORDERED: METHADONE HCL 5 MG TABLET (FOR DETOX USE ONLY) ONE (10:00)
[2019-04-10] MEDS: RANITIDINE HCL 150 MG TABLET (FP) PO SCH ×2 (11:21→22:34)
[2019-04-10] MEDS: PRENATAL VITAMINS W/ FOLIC ACID TABLET (FP) PO SCH (11:21)
[2019-04-10] MEDS: BACITRACIN 15 GM TUBE TOPICAL OINTMENT TP SCH (11:21)
[2019-04-10] MEDS: NICOTINE 21 MG/24 HOURS TOPICAL PATCH TD SCH (11:22)
[2019-04-10] MEDS: SERTRALINE HCL 25 MG TABLET (FP) PO SCH (11:22)
--- NOTE | 2019-04-10 11:57 | PN ---
S COWS - Scale Resting Pulse: 0= SD 80 or Below Sweatin= Chills/Flushing Restless Observation: 1= Difficult to Sit Still Pupil Size: 0= Normal to Room Light Bone or Joint Aches: 4=Acute Joint/Muscle Pain Runny Nose/ Eye Tearin= None GI Upset > 30mins: 0= None Tremor Observation of Outstretched Hands: 1= Tremor [place], Not Seen Yawning Observation: 1= 1-2x During Session Anxiety or Irritability: 2=Irritable/Anxious Goose Flesh Skin: 0=Smooth Skin COWS Score: 10 S Progress Note (SOAP) Subjective: c/o irritability, sweats, and interrupted sleep Objective: 04/10/19 11:56 Vital Signs 04/10/19 04/10/19 04/10/19 04:12 06:00 06:57 Temperature 97.9 F Pulse Rate 70 68 70 Respiratory 18 16 18 Rate Blood Pressure 85/52 L Lab Results WBC 6.6 K/mm3 (4.0-10.0) 04/07/19 11:40 RBC 3.93 M/mm3 (3.60-5.2) 04/07/19 11:40 Hgb 13.2 GM/dL (10.7-15.3) 04/07/19 11:40 Hct 39.5 % (32.4-45.2) 04/07/19 11:40 MCV 100.5 fl (80-96) H 04/07/19 11:40 MCHC 33.4 g/dl (32.0-36.0) 04/07/19 11:40 RDW 13.8 % (11.6-15.6) D 04/07/19 11:40 Plt Count 261 K/MM3 (134-434) 04/07/19 11:40 Sodium 138 mmol/L (136-145) 04/07/19 11:40 Potassium 3.9 mmol/L (3.5-5.1) 04/07/19 11:40 Chloride 105 mmol/L (98-107) 04/07/19 11:40 Carbon Dioxide 25 mmol/L (21-32) 04/07/19 11:40 Anion Gap 8 MMOL/L (8-16) 04/07/19 11:40 BUN 9.0 mg/dL (7-18) 04/07/19 11:40 Creatinine 0.7 mg/dL (0.55-1.3) 04/07/19 11:40 Random Glucose 91 mg/dL (74-106) 04/07/19 11:40 Calcium 8.8 mg/dL (8.5-10.1) 04/07/19 11:40 Labs noted. Assessment: 04/10/19 11:57 AOX3, in no acute distress Full ROM, ambulating in the unit. withdrawal symptoms. Plan: continue detox.
[2019-04-10] MEDS: THIAMINE HCL 100 MG TABLET (FP) PO SCH (22:35)
[2019-04-10] MEDS: SUVOREXANT 10 MG TABLET PO PRN (23:19)
[2019-04-11] MEDS: MELATONIN 5 MG TABLETS PO PRN (02:57)
[2019-04-11] MEDS: METHOCARBAMOL 500 MG TABLET PO PRN (02:57)
[2019-04-11] MEDS: hydrOXYzine PAMOATE 25 MG CAPSULE (FP) PO PRN (02:57)
[2019-04-11] MEDS ORDERED: METHADONE HCL 5 MG TABLET (FOR DETOX USE ONLY) PO ONE (06:00)
[2019-04-11] MEDS ORDERED: METHADONE HCL 10 MG TABLET (FOR DETOX USE ONLY) PO ONE (10:00)
[2019-04-11] MEDS: BACITRACIN 15 GM TUBE TOPICAL OINTMENT TP SCH (10:31)
[2019-04-11] MEDS: PRENATAL VITAMINS W/ FOLIC ACID TABLET (FP) PO SCH (10:31)
[2019-04-11] MEDS: NICOTINE 21 MG/24 HOURS TOPICAL PATCH TD SCH (10:32)
[2019-04-11] MEDS: RANITIDINE HCL 150 MG TABLET (FP) PO SCH ×2 (10:33→22:39)
[2019-04-11] MEDS: SERTRALINE HCL 25 MG TABLET (FP) PO SCH (10:33)
--- NOTE | 2019-04-11 15:50 | PN ---
S Progress Note Note: Patient reports sleeping poorly despite taking Belsomra 10 mg/hs. Will increase Belsomra dosage to 15 mg/hs
--- NOTE | 2019-04-11 17:51 | PN ---
BHS COWS - Scale Resting Pulse: 2= [place] 101-120 Sweatin= Chills/Flushing Restless Observation: 0= Sits Still Pupil Size: 0= Normal to Room Light Bone or Joint Aches: 1= Mild Discomfort Runny Nose/ Eye Tearin= None GI Upset > 30mins: 0= None Tremor Observation of Outstretched Hands: 0= None Yawning Observation: 0= None Anxiety or Irritability: 2=Irritable/Anxious Goose Flesh Skin: 0=Smooth Skin COWS Score: 6 BHS Progress Note (SOAP) Subjective: Interrupted sleep Objective: 04/11/19 17:47 Last Vital Signs Temp Pulse Resp BP Pulse Ox 100 F H 103 H 16 101/52 L 04/11/19 17:19 04/11/19 17:19 04/11/19 17:19 04/11/19 17:19 Laboratory Tests 04/07/19 04/07/19 04/07/19 11:40 11:40 11:40 WBC 6.6 RBC 3.93 Hgb 13.2 Hct 39.5 MCV 100.5 H MCH 33.6 MCHC 33.4 RDW 13.8 D Plt Count 261 MPV 7.9 D Sodium 138 Potassium 3.9 Chloride 105 Carbon Dioxide 25 Anion Gap 8 BUN 9.0 Creatinine 0.7 Est GFR (CKD-EPI)AfAm 141.54 Est GFR (CKD-EPI)NonAf 122.12 Random Glucose 91 Calcium 8.8 Total Bilirubin 0.4 AST 10 L ALT 16 Alkaline Phosphatase 54 Total Protein 6.4 Albumin 3.7 Urine Color Urine Appearance Urine pH Ur Specific [place] Urine Protein Urine Glucose (UA) Urine Ketones Urine Blood Urine Nitrite Urine Bilirubin Urine Urobilinogen Ur Leukocyte Esterase Urine WBC (Auto) Urine RBC (Auto) U Pathogenic Cast Auto U Epithel Cells (Auto) Urine Bacteria (Auto) Urine Yeast (Auto) POC Urine HCG, Qual RPR Titer Nonreactive 04/07/19 04/07/19 11:42 14:30 WBC RBC Hgb Hct MCV MCH MCHC RDW Plt Count MPV Sodium Potassium Chloride Carbon Dioxide Anion Gap BUN Creatinine Est GFR (CKD-EPI)AfAm Est GFR (CKD-EPI)NonAf Random Glucose Calcium Total Bilirubin AST ALT Alkaline Phosphatase Total Protein Albumin Urine Color Yellow Urine Appearance Clear Urine pH 5.5 Ur Specific [place] 1.007 L Urine Protein Negative Urine Glucose (UA) Negative Urine Ketones Negative Urine Blood Negative Urine Nitrite Negative Urine Bilirubin Negative Urine Urobilinogen 0.2 Ur Leukocyte Esterase 1+ H Urine WBC (Auto) 7.3 Urine RBC (Auto) 1.4 U Pathogenic Cast Auto No Result Required. U Epithel Cells (Auto) 8.8 Urine Bacteria (Auto) 397.0 Urine Yeast (Auto) 2+ POC Urine HCG, Qual Negative RPR Titer Labs reviewed: abnormal UA, 2+ yeast Assessment: 04/11/19 17:49 Withdrawal symptoms Noted with abnormal UA and yeast 2+ Plan: Continue detox Encouraged PO water intake Abnormal UA with yeast: diflucan 150mg PO x 1 dose for yeast, repeat UA
[2019-04-11] MEDS ORDERED: FLUCONAZOLE 50 MG TABLET PO ONE (17:52)
[2019-04-11 21:44] LABS: EPI CELLS 10.7 /HPF (0-5/HPF); HYALINE CASTS 10 /lpf (0-8); PH,URINE 5.5 (5.0-8.0); URINE APPEARANCE CLOUDY; URINE BACTERIA 432.2 /hpf (NEGATIVE); URINE BILIRUBIN NEGATIVE (NEGATIVE); URINE COLOR YELLOW; URINE GLUCOSE (UA) NEGATIVE (NEGATIVE); URINE KETONE TRACE (NEGATIVE); URINE LEUK ESTERASE 1+ (NEGATIVE); URINE NITRITE NEGATIVE (NEGATIVE); URINE PROTEIN NEGATIVE (NEGATIVE); URINE RBC 2 /hpf (0-4); URINE WBC 12 /hpf (0-5)
[2019-04-11] MEDS ORDERED: SUVOREXANT 10 MG TABLET PO PRN (22:00)
[2019-04-11] MEDS: THIAMINE HCL 100 MG TABLET (FP) PO SCH (22:39)
[2019-04-11] MEDS ORDERED: SUVOREXANT 10 MG, SUVOREXANT 5 MG PO PRN (22:51)
[2019-04-11] MEDS ORDERED: SUVOREXANT 10 MG TABLET PO ONE (23:22)
[2019-04-11] MEDS ORDERED: SUVOREXANT 5 MG TABLET ONE (23:23)
[2019-04-12] MEDS ORDERED: METHADONE HCL 5 MG TABLET (FOR DETOX USE ONLY) PO ONE (06:00)
[2019-04-12 09:31] VITALS: BP 102/64; PULSE 83; TEMP 97.7
[2019-04-12] MEDS: PRENATAL VITAMINS W/ FOLIC ACID TABLET (FP) PO SCH (09:49)
[2019-04-12] MEDS: RANITIDINE HCL 150 MG TABLET (FP) PO SCH (09:49)
[2019-04-12] MEDS: NICOTINE 21 MG/24 HOURS TOPICAL PATCH TD SCH (09:50)
[2019-04-12] MEDS: BACITRACIN 15 GM TUBE TOPICAL OINTMENT TP SCH (09:50)
[2019-04-12] MEDS: SERTRALINE HCL 25 MG TABLET (FP) PO SCH (09:50)
--- NOTE | 2019-04-12 10:04 | DS ---
[facility] Detox Discharge Summary Admission Date: 04/07/19 Discharge Date: 04/12/19 - History Present History: Cannabis Dependence, Opioid Dependence - Physical Exam Results Vital Signs: Vital Signs Temperature 97.7 F 04/12/19 09:30 Pulse Rate 83 04/12/19 09:30 Respiratory Rate 18 04/12/19 09:30 Blood Pressure 102/64 04/12/19 09:30 O2 Sat by Pulse Oximetry (%) - Treatment Hospital Course: Detox Protocol Followed, Detoxed Safely, Responded well, Discharged Condition Good, Rehab Referral Accepted - Medication Discharge Medications: Ambulatory Orders Famotidine [Pepcid -] 20 mg PO DAILY 08/04/18 Quetiapine Fumarate [Seroquel] 50 mg PO HS 04/07/19 Ranitidine [Zantac -] 150 mg PO BID 04/07/19 - Diagnosis (1) Depression Current Visit: Yes Status: Chronic (2) Substance-induced anxiety disorder Current Visit: Yes Status: Acute (3) Anxiety disorder Current Visit: Yes Status: Chronic (4) PTSD (post-traumatic stress disorder) Current Visit: Yes Status: Chronic (5) Cannabis dependence Current Visit: Yes Status: Chronic (6) Opioid dependence with withdrawal Current Visit: Yes Status: Chronic (7) Substance-induced sleep disorder Current Visit: No Status: Acute (8) GERD (gastroesophageal reflux disease) Current Visit: Yes Status: Chronic Qualifiers: Esophagitis presence: without esophagitis (9) Gastritis Current Visit: Yes Status: Chronic Qualifiers: Chronicity: unspecified (10) Nicotine dependence Current Visit: Yes Status: Chronic Qualifiers: Nicotine product type: cigarettes Substance use status: uncomplicated Qualified Code(s): F17.210 - Nicotine dependence, cigarettes, uncomplicated (11) Substance-induced anxiety disorder Current Visit: No Status: Chronic - AMA Did Patient Leave Against Medical Advice: No ([facility])
== END 2019-04-12 10:51 | disposition home or self-care (01) | DRG 773 ==
LOC: YASAS 10:16 → Y6N 11:36
PROVIDERS: ADMIT Surgery; ATTEND Surgery
PROC: HZ2ZZZZ Detoxification Services for Substance Abuse Treatment (ICD-10-PCS; principal; 2019-04-07)
DX: F11.23 Opioid dependence with withdrawal (principal); F12.20 Cannabis dependence, uncomplicated; F17.210 Nicotine dependence, cigarettes, uncomplicated; F19.280 Other psychoactive substance dependence with psychoactive substance-induced anxiety disorder; F19.282 Other psychoactive substance dependence with psychoactive substance-induced sleep disorder; F41.9 Anxiety disorder, unspecified; F43.10 Post-traumatic stress disorder, unspecified; F32.9 Major depressive disorder, single episode, unspecified; K21.9 Gastro-esophageal reflux disease without esophagitis; K29.70 Gastritis, unspecified, without bleeding; R82.90 Unspecified abnormal findings in urine; R63.4 Abnormal weight loss
CPT/HCPCS: 36415; 80053; 81003; 81025; 85027; 86593

== ENCOUNTER 2019-07-02 09:17 | Inpatient (IN) | payer OTHER ==
--- NOTE | 2019-07-02 09:34 | HP ---
COWS - Scale Resting Pulse: 1= [place] 81-100 Sweatin=Flushed/Facial Moisture Restless Observation: 1= Difficult to Sit Still Pupil Size: 2= Moderately Dilated Bone or Joint Aches: 2= Severe Diffuse Aches Runny Nose/ Eye Tearin= Runny Nose/Eyes GI Upset > 30mins: 2= Nausea/Diarrhea Tremor Observation: 2= Slight Tremor Visible Yawning Observation: 1= 1-2x During Session Anxiety or Irritability: 4=Extreme Anxiety Goose Flesh Skin: 3=Piloerection COWS Score: 22 CIWA Score - Admission Criteria [facility]ASAS Guidelines: Admission for Medically Managed Detox: Requires at least one of the followin. CIWA greater than 12 2. Seizures within the past 24 hours 3. Delirium tremens within the past 24 hours 4. Hallucinations within the past 24 hours 5. Acute intervention needed for co occurring medical disorder 6. Acute intervention needed for co occurring psychiatric disorder 7. Severe withdrawal that cannot be handled at a lower level of care (continued vomiting, continued diarrhea, abnormal vital signs) requiring intravenous medication and/or fluids 8. Admission ROS [facility] - [facility] Chief Complaint: " I need help and I'm out of control" Allergies/Adverse Reactions: Allergies Allergy/AdvReac Type Severity Reaction Status Date / Time No Known Allergies Allergy Verified 07/02/19 09:30 History of Present Illness: 23 year old female with opioid dependence with acute intoxication and withdrawals. She is using up to 25 10 mg percocets daily, last used last night. She is extremely anxious, nauseous and retching. She denies using any other substances of abuse. She denies ever overdosing. PMH: Gastritis on omeprazole Psurg Hx: None All: None - Ebola screening Have you traveled outside of the country in the last 21 days: No Have you had contact with anyone from an Ebola affected area: No Do you have a fever: No Patient History - Patient Medical History Hx Anemia: No Hx Asthma: No Hx Chronic Obstructive Pulmonary Disease (COPD): No Hx Cancer: No Hx Cardiac Disorders: No Hx Congestive Heart Failure: No Hx Hypertension: No Hx Hypercholesterolemia: No Hx Pacemaker: No HX Cerebrovascular Accident: No Hx Seizures: No Hx Diabetes: No Hx Gastrointestinal Disorders: No Hx Liver Disease: No Hx Genitourinary Disorders: Yes (gastritis /acid reflux) Hx Sexually Transmitted Disorders: No Hx Renal Disease (ESRD): No Hx Thyroid Disease: No Hx Human Immunodeficiency Virus (HIV): No (last 02/28 negative) Hx Hepatitis C: No Hx Depression: Yes (on no meds) Hx Suicide Attempt: No Hx Bipolar Disorder: No Hx Schizophrenia: No - Patient Surgical History Past Surgical History: No Hx Neurologic Surgery: No Hx Cataract Extraction: No Hx Cardiac Surgery: No Hx Lung Surgery: No Hx Breast Surgery: No Hx Breast Biopsy: No Hx Abdominal Surgery: No Hx Appendectomy: No Hx Cholecystectomy: No Hx Genitourinary Surgery: No Hx Section: No Hx Orthopedic Surgery: No Other Surgical History: LIPOSUCTION TO ABDOMEN 2015 Anesthesia Reaction: No - PPD History Previous Implant?: Yes Documented Results: Negative w/proof Implanted On Prior [facility] Admission?: Yes Date: 10/03/18 Results: 0 mm PPD to be Administered?: No - Reproductive History Patient is a Female of Child Bearing Age (11 -55 yrs old): Yes Last Menstrual Period: 03/07/19 - Smoking Cessation Smoking history: Current every day smoker Have you smoked in the past 12 months: No Aproximately how many cigarettes per day: 10 If you are a former smoker, when did you quit?: 1 month ago Hx Chewing Tobacco Use: No Initiated information on smoking cessation: Yes 'Breaking Loose' booklet given: 07/02/19 - Substances abused Other Other (specify): percocet Substance route: Oral Frequency: Daily Amount used: 10mg/325 mg tab about 200-250 Age of first use: 14 Date of last use: 04/06/19 Marijuana/Hashish Substance route: Smoking Frequency: Daily Amount used: $100/day Age of first use: 14 Date of last use: 04/06/19 Admission Physical Exam [facility] - Physical General Appearance: Yes: Severe Distress HEENTM: Yes: Normal ENT Inspection, Normocephalic, STAR, Pharynx Normal Respiratory: Yes: Chest Non-Tender, Lungs Clear, No Respiratory Distress, No Accessory Muscle Use Neck: Yes: No masses,lesions,Nodules, Supple, Trachea in good position Breast: Yes: Breast Exam Deferred Cardiology: Yes: Regular Rhythm, Regular Rate, S1, S2 Cleared for Admission [facility] - Detox or Rehab [facility] Level of Care: Medically Managed Detox Regimen/Protocol: Methadone Claeared for Rehab Admission: No Screened but not Admitted - Documentation of Visit Screened but not Admitted: No Breathalyzer - Breathalyzer Breathalyzer: 0 Vital Signs - Vital Signs Vital signs refused: No Temperature: 98 F Temperature source: Oral Pulse Rate: 76 Respiratory Rate: 18 Blood Pressure: 142/97 BP Location: Left Arm Blood Pressure position: Sitting - Height Height: 4 ft 11 in - Weight Weight: 109 lb Weight measurement method: Standing scale - BMI Body Mass Index (BMI): 22.0 - Bowel Function Bowel Movement: Yes Urine Drug Screen - Test Device Lot number: [id number] Expiration date: 12/10/20 - Control Is test valid?: Yes - Results Drug screen NEGATIVE: No Urine drug screen results: THC-Marijuana, MET-Methamphetamine, MOP-Opiates, OXY- Oxycodone Inpatient Rehab Admission - Rehab Decision to Admit Inpatient rehab admission?: No
[2019-07-02 09:39] VITALS: BMI 22.0
[2019-07-02] MEDS ORDERED: ACETAMINOPHEN 325 MG TABLET (FP) PO PRN (09:43)
[2019-07-02] MEDS ORDERED: MAG HYDROX/AL HYDROX/SIMETH 30 ML UNIT-DOSE CUP PO PRN (09:43)
[2019-07-02] MEDS ORDERED: BISMUTH SUBSALICYLATE 524 MG/30 ML UD PO PRN (09:43)
[2019-07-02] MEDS ORDERED: MENTHOL/PHENOL 1 EACH UD MM PRN (09:43)
[2019-07-02] MEDS ORDERED: DICYCLOMINE HCL 10 MG CAPSULE PO PRN (09:43)
[2019-07-02] MEDS ORDERED: MAGNESIUM CITRATE 300 ML BOTTLE PO PRN (09:43)
[2019-07-02] MEDS ORDERED: ONDANSETRON *ODT* 4 MG TABLET SL PRN (09:43)
[2019-07-02] MEDS ORDERED: MAGNESIUM HYDROX 2400MG/30ML ORAL SUSPENSION 30 ML CUP PO PRN (09:43)
[2019-07-02] MEDS ORDERED: METHADONE HCL 10 MG TABLET (FOR DETOX USE ONLY) PO ONE (10:00)
[2019-07-02] MEDS: PANTOPRAZOLE 40 MG TABLET (FP) PO SCH (10:35)
[2019-07-02] MEDS: NICOTINE 14 MG/24 HOURS TOPICAL PATCH TD SCH (10:35)
[2019-07-02] MEDS: PRENATAL VITAMINS W/ FOLIC ACID TABLET (FP) PO SCH (10:35)
[2019-07-02 12:13] LABS: HEMATOCRIT 39.5 % (32.4-45.2); HEMOGLOBIN 13.5 GM/dL (10.7-15.3); MCH 33.8 pg (25.7-33.7); MCHC 34.3 g/dl (32.0-36.0); MEAN CELL VOLUME 98.8 fl (80-96); MEAN PLT VOLUME 7.5 fl (7.5-11.1); PLATELET COUNT 293 K/MM3 (134-434); RDW 12.7 % (11.6-15.6); WHITE BLOOD COUNT 10.5 K/mm3 (4.0-10.0)
[2019-07-02 12:31] LABS: ALBUMIN 4.3 g/dl (3.4-5.0); BLOOD UREA NITROGEN 12.8 mg/dL (7-18); CALCIUM 9.1 mg/dL (8.5-10.1); CREATININE 0.7 mg/dL (0.55-1.3)
[2019-07-02] MEDS ORDERED: TRIMETHOBENZAMIDE HCL 200MG/2ML INJ IM PRN (13:12)
[2019-07-02 14:45] LABS: POTASSIUM 2.9 mmol/L (3.5-5.1)
[2019-07-02] MEDS: cloNIDine HCL 0.1 MG TABLET PO PRN (18:50)
[2019-07-02] MEDS: MELATONIN 5 MG TABLETS PO PRN (22:47)
[2019-07-02] MEDS: THIAMINE HCL 100 MG TABLET (FP) PO SCH (22:47)
[2019-07-02] MEDS: hydrOXYzine PAMOATE 25 MG CAPSULE (FP) PO PRN (22:47)
[2019-07-02] MEDS: METHOCARBAMOL 500 MG TABLET PO PRN (22:47)
[2019-07-03] MEDS ORDERED: METHADONE HCL 10 MG TABLET (FOR DETOX USE ONLY) ONE (09:19)
[2019-07-03] MEDS ORDERED: METHADONE HCL 5 MG TABLET (FOR DETOX USE ONLY) ONE (09:19)
[2019-07-03] MEDS ORDERED: METHADONE (DETOX) 20 MG, METHADONE (DETOX) 5 MG PO ONE (10:00)
[2019-07-03] MEDS: PANTOPRAZOLE 40 MG TABLET (FP) PO SCH (10:17)
[2019-07-03] MEDS: PRENATAL VITAMINS W/ FOLIC ACID TABLET (FP) PO SCH (10:17)
[2019-07-03] MEDS: NICOTINE 14 MG/24 HOURS TOPICAL PATCH TD SCH (10:18)
[2019-07-03] MEDS: cloNIDine HCL 0.1 MG TABLET PO PRN ×3 (10:20→22:43)
--- NOTE | 2019-07-03 12:23 | PN ---
S COWS - Scale Resting Pulse: 0= [place] 80 or Below Sweatin= Chills/Flushing Restless Observation: 1= Difficult to Sit Still Pupil Size: 0= Normal to Room Light Bone or Joint Aches: 4=Acute Joint/Muscle Pain Runny Nose/ Eye Tearin= None GI Upset > 30mins: 0= None Tremor Observation of Outstretched Hands: 2= Slight Tremor Visible Yawning Observation: 1= 1-2x During Session Anxiety or Irritability: 2=Irritable/Anxious Goose Flesh Skin: 0=Smooth Skin COWS Score: 11 S Progress Note (SOAP) Subjective: c/o sweats, chills, anxiety, irritability, and muscle aches. Objective: 07/03/19 12:23 Vital Signs 07/03/19 06:00 Temperature 97.7 F Pulse Rate 75 Respiratory 16 Rate Blood Pressure 104/59 L Lab Results WBC 10.5 K/mm3 (4.0-10.0) H 07/02/19 09:40 RBC 4.00 M/mm3 (3.60-5.2) 07/02/19 09:40 Hgb 13.5 GM/dL (10.7-15.3) 07/02/19 09:40 Hct 39.5 % (32.4-45.2) 07/02/19 09:40 MCV 98.8 fl (80-96) H 07/02/19 09:40 MCHC 34.3 g/dl (32.0-36.0) 07/02/19 09:40 RDW 12.7 % (11.6-15.6) 07/02/19 09:40 Plt Count 293 K/MM3 (134-434) 07/02/19 09:40 Sodium 141 mmol/L (136-145) 07/02/19 09:40 Potassium 2.9 mmol/L (3.5-5.1) L* 07/02/19 09:40 Chloride 104 mmol/L (98-107) 07/02/19 09:40 Carbon Dioxide 27 mmol/L (21-32) 07/02/19 09:40 Anion Gap 10 MMOL/L (8-16) 07/02/19 09:40 BUN 12.8 mg/dL (7-18) 07/02/19 09:40 Creatinine 0.7 mg/dL (0.55-1.3) 07/02/19 09:40 Random Glucose 115 mg/dL (74-106) H 07/02/19 09:40 Calcium 9.1 mg/dL (8.5-10.1) 07/02/19 09:40 Labs noted, K+ level 2.9 on 07/02/19. 07/03/19 12:26 Assessment: 07/03/19 12:26 AOX3, in no acute distress. Full ROM, ambulating in the unit. Withdrawal symptoms. K+ level of 2.9 Plan: continue detox. potassium chloride 40meq po x1 dose now Repeat bmp in AM.
[2019-07-03] MEDS ORDERED: POTASSIUM CHLORIDE TABS 20 MEQ TABLET.ER (FP) PO ONE (12:45)
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
[2019-07-03] MEDS: METHOCARBAMOL 500 MG TABLET PO PRN (18:11)
[2019-07-03] MEDS: hydrOXYzine PAMOATE 25 MG CAPSULE (FP) PO PRN (18:11)
[2019-07-03] MEDS: IBUPROFEN 400 MG TABLET (FP) PO PRN (18:12)
[2019-07-03] MEDS: QUEtiapine FUMARATE 50 MG TABLET PO SCH (22:43)
[2019-07-03] MEDS: THIAMINE HCL 100 MG TABLET (FP) PO SCH (22:43)
[2019-07-04] MEDS ORDERED: METHADONE HCL 10 MG TABLET (FOR DETOX USE ONLY) PO ONE (10:00)
[2019-07-04] MEDS: PRENATAL VITAMINS W/ FOLIC ACID TABLET (FP) PO SCH (10:13)
[2019-07-04] MEDS: PANTOPRAZOLE 40 MG TABLET (FP) PO SCH (10:13)
[2019-07-04] MEDS: NICOTINE 14 MG/24 HOURS TOPICAL PATCH TD SCH (10:14)
[2019-07-04] MEDS: METHOCARBAMOL 500 MG TABLET PO PRN ×2 (10:15→19:44)
[2019-07-04] MEDS: hydrOXYzine PAMOATE 25 MG CAPSULE (FP) PO PRN ×2 (10:16→19:44)
--- NOTE | 2019-07-04 18:07 | PN ---
BHS COWS - Scale Resting Pulse: 0= [place] 80 or Below Sweatin= Chills/Flushing Restless Observation: 3= Extraneous Movement Pupil Size: 0= Normal to Room Light Bone or Joint Aches: 2= Severe Diffuse Aches Runny Nose/ Eye Tearin= Runny Nose/Eyes GI Upset > 30mins: 3= Vomiting/Diarrhea Tremor Observation of Outstretched Hands: 2= Slight Tremor Visible Yawning Observation: 0= None Anxiety or Irritability: 2=Irritable/Anxious Goose Flesh Skin: 0=Smooth Skin COWS Score: 15 BHS Progress Note (SOAP) Subjective: Profused sweating, had to take shower and changed bed linens 3-4 times already, stomachache, interrupted sleep Objective: 07/04/19 18:04 Last Vital Signs Temp Pulse Resp BP Pulse Ox 97.9 F 62 16 94/58 L 07/04/19 06:00 07/04/19 06:00 07/04/19 06:00 07/04/19 06:00 Hypotension (asymptomatic, encouraged PO water intake) Laboratory Tests 07/02/19 07/02/19 07/02/19 09:40 09:40 09:40 WBC 10.5 H RBC 4.00 Hgb 13.5 Hct 39.5 MCV 98.8 H MCH 33.8 H MCHC 34.3 RDW 12.7 Plt Count 293 MPV 7.5 Sodium 141 Potassium 2.9 L* Chloride 104 Carbon Dioxide 27 Anion Gap 10 BUN 12.8 Creatinine 0.7 Est GFR (CKD-EPI)AfAm 141.54 Est GFR (CKD-EPI)NonAf 122.12 Random Glucose 115 H Calcium 9.1 Total Bilirubin 1.0 AST 11 L ALT 14 Alkaline Phosphatase 52 Total Protein 7.0 Albumin 4.3 RPR Titer Nonreactive Labs reviewed: K 2.9, glucose 115 Assessment: 07/04/19 18:05 Withdrawal sxs Noted with hypotension, hypokalemia and hyperglycemia Plan: Continue detox Hypotension: asymptomatic, encouraged PO water hydration Hypokalemia: was replenished with K Dur 40 Meq x 1, will give another dose of K Dur 40 Meq and start K Dur 20 Meq PO daily, repeat serum K level in AM (will order BMP in AM) Hyperglycemia: most likely from withdrawing, repeat fasting glucose level
[2019-07-04] MEDS ORDERED: POTASSIUM CHLORIDE ORAL LIQUID 20 MEQ/15 ML PO ONE (18:10)
[2019-07-04] MEDS: QUEtiapine FUMARATE 50 MG TABLET PO SCH (22:15)
[2019-07-04] MEDS: MELATONIN 5 MG TABLETS PO PRN (22:15)
[2019-07-04] MEDS: THIAMINE HCL 100 MG TABLET (FP) PO SCH (23:55)
[2019-07-05] MEDS: ACETAMINOPHEN 325 MG TABLET (FP) PO PRN (06:12)
[2019-07-05] MEDS ORDERED: METHADONE HCL 5 MG TABLET (FOR DETOX USE ONLY) ONE (09:23)
[2019-07-05] MEDS ORDERED: METHADONE HCL 10 MG TABLET (FOR DETOX USE ONLY) ONE (09:23)
[2019-07-05] MEDS ORDERED: METHADONE (DETOX) 10 MG, METHADONE (DETOX) 5 MG PO ONE (10:00)
[2019-07-05] MEDS: POTASSIUM CHLORIDE ORAL LIQUID 20 MEQ/15 ML PO SCH (11:07)
[2019-07-05] MEDS: PRENATAL VITAMINS W/ FOLIC ACID TABLET (FP) PO SCH (11:07)
[2019-07-05] MEDS: PANTOPRAZOLE 40 MG TABLET (FP) PO SCH (11:07)
[2019-07-05] MEDS: hydrOXYzine PAMOATE 25 MG CAPSULE (FP) PO PRN (11:08)
[2019-07-05] MEDS: NICOTINE 14 MG/24 HOURS TOPICAL PATCH TD SCH (11:36)
--- NOTE | 2019-07-05 12:21 | PN ---
BHS COWS - Scale Resting Pulse: 1= [place] 81-100 Sweatin= Chills/Flushing Restless Observation: 1= Difficult to Sit Still Pupil Size: 0= Normal to Room Light Bone or Joint Aches: 2= Severe Diffuse Aches Runny Nose/ Eye Tearin= None GI Upset > 30mins: 0= None Tremor Observation of Outstretched Hands: 1= Tremor [place], Not Seen Yawning Observation: 1= 1-2x During Session Anxiety or Irritability: 2=Irritable/Anxious Goose Flesh Skin: 0=Smooth Skin COWS Score: 9 BHS Progress Note (SOAP) Subjective: sweats anxiety chills body aches restless Objective: 07/05/19 12:20 Vital Signs Temperature 98.1 F 07/05/19 11:08 Pulse Rate 83 07/05/19 11:08 Respiratory Rate 18 07/05/19 11:08 Blood Pressure 103/77 07/05/19 11:08 O2 Sat by Pulse Oximetry (%) Laboratory Tests 07/02/19 07/02/19 07/02/19 09:40 09:40 09:40 WBC 10.5 H RBC 4.00 Hgb 13.5 Hct 39.5 MCV 98.8 H MCH 33.8 H MCHC 34.3 RDW 12.7 Plt Count 293 MPV 7.5 Sodium 141 Potassium 2.9 L* Chloride 104 Carbon Dioxide 27 Anion Gap 10 BUN 12.8 Creatinine 0.7 Est GFR (CKD-EPI)AfAm 141.54 Est GFR (CKD-EPI)NonAf 122.12 Random Glucose 115 H Calcium 9.1 Total Bilirubin 1.0 AST 11 L ALT 14 Alkaline Phosphatase 52 Total Protein 7.0 Albumin 4.3 POC Urine HCG, Qual Negative RPR Titer 07/02/19 09:40 WBC RBC Hgb Hct MCV MCH MCHC RDW Plt Count MPV Sodium Potassium Chloride Carbon Dioxide Anion Gap BUN Creatinine Est GFR (CKD-EPI)AfAm Est GFR (CKD-EPI)NonAf Random Glucose Calcium Total Bilirubin AST ALT Alkaline Phosphatase Total Protein Albumin POC Urine HCG, Qual RPR Titer Nonreactive repeated labs are pending aaox3 ambulating no acute distress Assessment: 07/05/19 12:20 withdrawals Plan: continue detox increase fluids valium 10mg prn q4hrs x 2 days only
[2019-07-05 12:50] LABS: CALCIUM 9.1 mg/dL (8.5-10.1); CREATININE 0.8 mg/dL (0.55-1.3); POTASSIUM 3.8 mmol/L (3.5-5.1)
[2019-07-05] MEDS: diazePAM 5 MG TABLET PO PRN ×2 (13:39→22:00)
[2019-07-05] MEDS: IBUPROFEN 400 MG TABLET (FP) PO PRN (19:25)
[2019-07-05] MEDS: THIAMINE HCL 100 MG TABLET (FP) PO SCH (22:01)
[2019-07-05] MEDS: MELATONIN 5 MG TABLETS PO PRN (22:01)
[2019-07-05] MEDS: QUEtiapine FUMARATE 50 MG TABLET PO SCH (22:01)
[2019-07-06] MEDS: ACETAMINOPHEN 325 MG TABLET (FP) PO PRN (06:14)
[2019-07-06] MEDS: BENZOCAINE 20 % GEL TUBE MM PRN ×2 (06:27→17:18)
[2019-07-06] MEDS: diazePAM 5 MG TABLET PO PRN ×2 (06:42→13:47)
--- NOTE | 2019-07-06 09:44 | PN ---
BHS COWS - Scale Resting Pulse: 1= [place] 81-100 Sweatin= Chills/Flushing Restless Observation: 1= Difficult to Sit Still Pupil Size: 0= Normal to Room Light Bone or Joint Aches: 1= Mild Discomfort Runny Nose/ Eye Tearin= None GI Upset > 30mins: 0= None Tremor Observation of Outstretched Hands: 1= Tremor [place], Not Seen Yawning Observation: 0= None Anxiety or Irritability: 1=Feels Anxious/Irritable Goose Flesh Skin: 0=Smooth Skin COWS Score: 6 BHS Progress Note (SOAP) Subjective: tooth aches anxiety Objective: 07/06/19 09:43 Vital Signs Temperature 98.7 F 07/06/19 06:47 Pulse Rate 61 07/06/19 06:47 Respiratory Rate 18 07/06/19 06:47 Blood Pressure 96/51 L 07/06/19 06:47 O2 Sat by Pulse Oximetry (%) aaox3 ambulating no acute distress Assessment: 07/06/19 09:44 mild withdrawals Plan: continue detox anbesol prn d/c in am
[2019-07-06] MEDS ORDERED: METHADONE HCL 10 MG TABLET (FOR DETOX USE ONLY) PO ONE (10:00)
[2019-07-06] MEDS: PANTOPRAZOLE 40 MG TABLET (FP) PO SCH (10:21)
[2019-07-06] MEDS: NICOTINE 14 MG/24 HOURS TOPICAL PATCH TD SCH (10:22)
[2019-07-06] MEDS: hydrOXYzine PAMOATE 25 MG CAPSULE (FP) PO PRN ×2 (10:22→22:07)
[2019-07-06] MEDS: POTASSIUM CHLORIDE ORAL LIQUID 20 MEQ/15 ML PO SCH (10:22)
[2019-07-06] MEDS: PRENATAL VITAMINS W/ FOLIC ACID TABLET (FP) PO SCH (10:22)
[2019-07-06] MEDS: METHOCARBAMOL 500 MG TABLET PO PRN ×2 (10:22→22:06)
[2019-07-06] MEDS: IBUPROFEN 400 MG TABLET (FP) PO PRN (17:18)
[2019-07-06] MEDS: QUEtiapine FUMARATE 50 MG TABLET PO SCH (22:06)
[2019-07-06] MEDS: THIAMINE HCL 100 MG TABLET (FP) PO SCH (22:06)
[2019-07-06] MEDS: MELATONIN 5 MG TABLETS PO PRN (22:06)
[2019-07-07] MEDS ORDERED: METHADONE HCL 5 MG TABLET (FOR DETOX USE ONLY) PO ONE (06:00)
[2019-07-07] MEDS: ACETAMINOPHEN 325 MG TABLET (FP) PO PRN (06:13)
[2019-07-07] MEDS: METHOCARBAMOL 500 MG TABLET PO PRN (06:14)
[2019-07-07] MEDS: diazePAM 5 MG TABLET PO PRN (06:14)
[2019-07-07 06:40] VITALS: BP 104/69; PULSE 72; TEMP 97.9
--- NOTE | 2019-07-07 10:22 | DS ---
[facility] Detox Discharge Summary Admission Date: 07/02/19 Discharge Date: 07/07/19 - History Present History: Cannabis Dependence, Opioid Dependence - Physical Exam Results Vital Signs: Vital Signs Temperature 97.9 F 07/07/19 06:39 Pulse Rate 72 07/07/19 06:39 Respiratory Rate 16 07/07/19 06:39 Blood Pressure 104/69 07/07/19 06:39 O2 Sat by Pulse Oximetry (%) Pertinent Admission Physical Exam Findings: pt arrived in withdrawals Laboratory Tests 07/02/19 07/02/19 07/02/19 09:40 09:40 09:40 WBC 10.5 H RBC 4.00 Hgb 13.5 Hct 39.5 MCV 98.8 H MCH 33.8 H MCHC 34.3 RDW 12.7 Plt Count 293 MPV 7.5 Sodium 141 Potassium 2.9 L* Chloride 104 Carbon Dioxide 27 Anion Gap 10 BUN 12.8 Creatinine 0.7 Est GFR (CKD-EPI)AfAm 141.54 Est GFR (CKD-EPI)NonAf 122.12 Random Glucose 115 H Calcium 9.1 Total Bilirubin 1.0 AST 11 L ALT 14 Alkaline Phosphatase 52 Total Protein 7.0 Albumin 4.3 POC Urine HCG, Qual Negative RPR Titer 07/02/19 07/05/19 09:40 08:55 WBC RBC Hgb Hct MCV MCH MCHC RDW Plt Count MPV Sodium 141 Potassium 3.8 Chloride 105 Carbon Dioxide 27 Anion Gap 9 BUN 13.0 Creatinine 0.8 Est GFR (CKD-EPI)AfAm 120.44 Est GFR (CKD-EPI)NonAf 103.92 Random Glucose 92 Calcium 9.1 Total Bilirubin AST ALT Alkaline Phosphatase Total Protein Albumin POC Urine HCG, Qual RPR Titer Nonreactive today pt is aaox3 ambulating no acute distress no s/s withdrawals - Treatment Hospital Course: Detox Protocol Followed, Detoxed Safely, Responded well, Discharged Condition Good, Rehab Referral Accepted - Medication Discharge Medications: Ambulatory Orders Omeprazole 20 mg PO DAILY 07/02/19 - Diagnosis (1) Opioid dependence with withdrawal Status: Chronic (2) Substance-induced anxiety disorder Status: Chronic (3) Substance-induced sleep disorder Status: Acute (4) Anxiety disorder Status: Chronic (5) Cannabis dependence Status: Chronic (6) Depression Status: Chronic (7) GERD (gastroesophageal reflux disease) Status: Chronic Qualifiers: Esophagitis presence: without esophagitis (8) Gastritis Status: Chronic Qualifiers: Chronicity: unspecified (9) Insomnia Status: Chronic (10) Nicotine dependence Status: Chronic Qualifiers: Nicotine product type: cigarettes Substance use status: uncomplicated Qualified Code(s): F17.210 - Nicotine dependence, cigarettes, uncomplicated (11) PTSD (post-traumatic stress disorder) Status: Chronic (12) Substance induced mood disorder Status: Chronic (13) Substance-induced anxiety disorder Status: Chronic - AMA Did Patient Leave Against Medical Advice: No
== END 2019-07-07 09:30 | disposition home or self-care (01) | DRG 773 ==
LOC: YASAS 09:17 → Y6N 09:45
PROVIDERS: ADMIT Surgery; ATTEND Surgery
PROC: HZ2ZZZZ Detoxification Services for Substance Abuse Treatment (ICD-10-PCS; principal; 2019-07-02)
DX: F11.23 Opioid dependence with withdrawal (principal); F12.20 Cannabis dependence, uncomplicated; F17.210 Nicotine dependence, cigarettes, uncomplicated; F19.24 Other psychoactive substance dependence with psychoactive substance-induced mood disorder; F19.280 Other psychoactive substance dependence with psychoactive substance-induced anxiety disorder; F19.282 Other psychoactive substance dependence with psychoactive substance-induced sleep disorder; F41.9 Anxiety disorder, unspecified; F32.9 Major depressive disorder, single episode, unspecified; F43.10 Post-traumatic stress disorder, unspecified; K21.9 Gastro-esophageal reflux disease without esophagitis; K29.60 Other gastritis without bleeding; G47.00 Insomnia, unspecified; I95.9 Hypotension, unspecified; E87.6 Hypokalemia; R73.9 Hyperglycemia, unspecified
CPT/HCPCS: 36415; 80048; 80053; 81025; 85027; 86593; J0735; Q0162

== ENCOUNTER 2021-07-30 15:40 | Inpatient (IN) | payer OTHER ==
[2021-07-30] MEDS ORDERED: ONDANSETRON *ODT* 4 MG TABLET SL PRN (19:49)
[2021-07-30] MEDS ORDERED: IBUPROFEN 400 MG TABLET (FP) PO PRN (19:49)
[2021-07-30] MEDS ORDERED: MAGNESIUM CITRATE 300 ML BOTTLE PO PRN (19:49)
[2021-07-30] MEDS ORDERED: BISMUTH SUBSALICYLATE 524 MG/30 ML PO PRN (19:49)
[2021-07-30] MEDS ORDERED: MAG HYDROX/AL HYDROX/SIMETH 30 ML UNIT-DOSE CUP PO PRN (19:49)
[2021-07-30] MEDS ORDERED: MAGNESIUM HYDROX 2400MG/30ML ORAL SUSPENSION 30 ML CUP PO PRN (19:49)
[2021-07-30] MEDS ORDERED: MENTHOL/PHENOL 1 EACH UD MM PRN (19:49)
[2021-07-30] MEDS ORDERED: ACETAMINOPHEN 325 MG TABLET (FP) PO PRN ×2 (19:49)
[2021-07-30] MEDS ORDERED: DICYCLOMINE HCL 10 MG CAPSULE PO PRN (19:49)
[2021-07-30 20:50] VITALS: BMI 35.7
[2021-07-30] MEDS ORDERED: methaDONE HCL 10 MG TABLET (FOR DETOX USE ONLY) PO ONE (21:00)
[2021-07-30] MEDS: METHOCARBAMOL 500 MG TABLET PO PRN (21:32)
[2021-07-30] MEDS: THIAMINE HCL 100 MG TABLET (FP) PO SCH (21:33)
[2021-07-30] MEDS: MELATONIN 5 MG TABLETS PO SCH (21:33)
[2021-07-31] MEDS ORDERED: methaDONE HCL 10 MG TABLET (FOR DETOX USE ONLY) ONE (09:14)
[2021-07-31] MEDS: PRENATAL VITAMINS W/ FOLIC ACID TABLET (FP) PO SCH (10:52)
[2021-07-31] MEDS: hydrOXYzine PAMOATE 25 MG CAPSULE (FP) PO PRN (12:35)
[2021-07-31 12:47] LABS: HEMATOCRIT 35.8 % (32.4-45.2); HEMOGLOBIN 12.2 GM/dL (10.7-15.3); MCHC 34.1 g/dl (32.0-36.0); MEAN CELL VOLUME 99.9 fl (80-96); MEAN PLT VOLUME 7.5 fl (7.5-11.1); PLATELET COUNT 215 10^3/uL (134-434); RBC 3.58 M/mm3 (3.60-5.2); RDW 13.9 % (11.6-15.6); WHITE BLOOD COUNT 5.9 K/mm3 (4.0-10.0)
[2021-07-31 12:51] LABS: CALCIUM 8.2 mg/dL (8.5-10.1)
[2021-07-31 12:52] LABS: ALBUMIN 3.1 g/dl (3.4-5.0)
[2021-07-31 12:56] LABS: CREATININE 0.6 mg/dL (0.55-1.3); TOT PROT 5.6 g/dl (6.4-8.2)
[2021-07-31 12:57] LABS: BILIRUBIN,TOTAL 0.2 mg/dL (0.2-1)
[2021-07-31] MEDS: diazePAM 5 MG TABLET PO PRN ×3 (14:11→22:36)
[2021-07-31] MEDS: MELATONIN 5 MG TABLETS PO SCH (22:36)
[2021-07-31] MEDS: THIAMINE HCL 100 MG TABLET (FP) PO SCH (22:36)
[2021-07-31] MEDS: traZODone HCL 50 MG TABLET (FP) PO SCH (22:36)
[2021-08-01] MEDS: diazePAM 5 MG TABLET PO PRN ×4 (06:34→22:20)
[2021-08-01] MEDS ORDERED: methaDONE HCL 10 MG TABLET (FOR DETOX USE ONLY) PO ONE (10:00)
[2021-08-01] MEDS: PRENATAL VITAMINS W/ FOLIC ACID TABLET (FP) PO SCH (10:45)
[2021-08-01] MEDS: METHOCARBAMOL 500 MG TABLET PO PRN (19:12)
[2021-08-01] MEDS: traZODone HCL 50 MG TABLET (FP) PO SCH (22:17)
[2021-08-01] MEDS: THIAMINE HCL 100 MG TABLET (FP) PO SCH (22:17)
[2021-08-01] MEDS: MELATONIN 5 MG TABLETS PO SCH (22:18)
[2021-08-02] MEDS ORDERED: methaDONE HCL 10 MG TABLET (FOR DETOX USE ONLY) ONE (09:00)
[2021-08-02] MEDS: PRENATAL VITAMINS W/ FOLIC ACID TABLET (FP) PO SCH (11:06)
[2021-08-02] MEDS: diazePAM 5 MG TABLET PO PRN ×3 (11:11→22:34)
[2021-08-02] MEDS: METHOCARBAMOL 500 MG TABLET PO PRN (15:21)
[2021-08-02] MEDS: THIAMINE HCL 100 MG TABLET (FP) PO SCH (22:34)
[2021-08-02] MEDS: traZODone HCL 50 MG TABLET (FP) PO SCH (22:34)
[2021-08-02] MEDS: MELATONIN 5 MG TABLETS PO SCH (22:34)
[2021-08-02] MEDS: hydrOXYzine PAMOATE 25 MG CAPSULE (FP) PO PRN (22:34)
[2021-08-03] MEDS ORDERED: methaDONE HCL 10 MG TABLET (FOR DETOX USE ONLY) PO ONE (10:00)
[2021-08-03] MEDS: METHOCARBAMOL 500 MG TABLET PO PRN (10:38)
[2021-08-03] MEDS: PRENATAL VITAMINS W/ FOLIC ACID TABLET (FP) PO SCH (10:38)
[2021-08-03] MEDS: diazePAM 5 MG TABLET PO PRN ×3 (10:39→22:26)
[2021-08-03] MEDS: BACITRACIN 0.9 GM PACKET TP SCH ×2 (13:30→22:24)
[2021-08-03] MEDS: MELATONIN 5 MG TABLETS PO SCH (22:24)
[2021-08-03] MEDS: THIAMINE HCL 100 MG TABLET (FP) PO SCH (22:24)
[2021-08-03] MEDS: traZODone HCL 50 MG TABLET (FP) PO SCH (22:24)
[2021-08-03] MEDS: hydrOXYzine PAMOATE 25 MG CAPSULE (FP) PO PRN (22:26)
[2021-08-04] MEDS: diazePAM 5 MG TABLET PO PRN (05:49)
[2021-08-04] MEDS: METHOCARBAMOL 500 MG TABLET PO PRN (05:50)
[2021-08-04 09:35] VITALS: BP 94/62; PULSE 88; TEMP 96.6
[2021-08-04] MEDS: BACITRACIN 0.9 GM PACKET TP SCH (10:34)
[2021-08-04] MEDS: PRENATAL VITAMINS W/ FOLIC ACID TABLET (FP) PO SCH (10:34)
== END 2021-08-04 10:06 | disposition home or self-care (01) | DRG 773 ==
LOC: YASAS 15:40 → Y3N 20:32
PROVIDERS: ADMIT Allergy & Immunology; ATTEND Allergy & Immunology
PROC: HZ2ZZZZ Detoxification Services for Substance Abuse Treatment (ICD-10-PCS; principal; 2021-07-30)
DX: F11.23 Opioid dependence with withdrawal (principal); F12.20 Cannabis dependence, uncomplicated; F19.24 Other psychoactive substance dependence with psychoactive substance-induced mood disorder; F43.10 Post-traumatic stress disorder, unspecified; K21.9 Gastro-esophageal reflux disease without esophagitis; S02.5XXA Fracture of tooth (traumatic), initial encounter for closed fracture; Y04.0XXA Assault by unarmed brawl or fight, initial encounter; Y92.238 Other place in hospital as the place of occurrence of the external cause; Z87.891 Personal history of nicotine dependence
CPT/HCPCS: 36415; 80053; 85027; 86780; C9803; U0003; U0005

== ENCOUNTER 2021-11-27 16:52 | Inpatient (IN) | payer OTHER ==
[2021-11-27 18:31] VITALS: BMI 23.2
[2021-11-27] MEDS ORDERED: MAGNESIUM CITRATE 300 ML BOTTLE PO PRN (18:41)
[2021-11-27] MEDS ORDERED: MAGNESIUM HYDROX 2400MG/30ML ORAL SUSPENSION 30 ML CUP PO PRN (18:41)
[2021-11-27] MEDS ORDERED: IBUPROFEN 400 MG TABLET (FP) PO PRN (18:41)
[2021-11-27] MEDS ORDERED: LOPERAMIDE HCL 2 MG CAPSULE PO PRN (18:41)
[2021-11-27] MEDS ORDERED: MENTHOL/PHENOL 1 EACH UD MM PRN (18:41)
[2021-11-27] MEDS ORDERED: DICYCLOMINE HCL 10 MG CAPSULE PO PRN (18:41)
[2021-11-27] MEDS ORDERED: BISMUTH SUBSALICYLATE 524 MG/30 ML PO PRN (18:41)
[2021-11-27] MEDS ORDERED: ACETAMINOPHEN 325 MG TABLET (FP) PO PRN ×2 (18:41)
[2021-11-27] MEDS ORDERED: ONDANSETRON *ODT* 4 MG TABLET SL PRN (18:41)
[2021-11-27] MEDS ORDERED: MAG HYDROX/AL HYDROX/SIMETH 30 ML UNIT-DOSE CUP PO PRN (18:41)
[2021-11-27] MEDS: THIAMINE HCL 100 MG TABLET (FP) PO SCH (22:38)
[2021-11-27] MEDS: MELATONIN 5 MG TABLETS PO PRN (22:38)
[2021-11-27] MEDS: hydrOXYzine PAMOATE 25 MG CAPSULE (FP) PO PRN (22:38)
[2021-11-27] MEDS: METHOCARBAMOL 500 MG TABLET PO PRN (22:40)
[2021-11-27] MEDS ORDERED: methaDONE HCL 10 MG TABLET (FOR DETOX USE ONLY) PO ONE (23:00)
[2021-11-28] MEDS: diazePAM 5 MG TABLET PO PRN ×2 (03:34→13:15)
[2021-11-28] MEDS ORDERED: methaDONE HCL 10 MG TABLET (FOR DETOX USE ONLY) ONE (09:50)
[2021-11-28 10:51] LABS: HEMATOCRIT 35.2 % (32.4-45.2); HEMOGLOBIN 11.8 GM/dL (10.7-15.3); MCHC 33.5 g/dl (32.0-36.0); MEAN CELL VOLUME 101.6 fl (80-96); MEAN PLT VOLUME 7.2 fl (7.5-11.1); PLATELET COUNT 243 10^3/uL (134-434); RBC 3.46 M/mm3 (3.60-5.2); RDW 13.6 % (11.6-15.6); WHITE BLOOD COUNT 5.7 K/mm3 (4.0-10.0)
[2021-11-28] MEDS: METHOCARBAMOL 500 MG TABLET PO PRN ×3 (11:24→22:49)
[2021-11-28] MEDS: PRENATAL VITAMINS W/ FOLIC ACID TABLET (FP) PO SCH (11:24)
[2021-11-28] MEDS: hydrOXYzine PAMOATE 25 MG CAPSULE (FP) PO PRN (11:25)
[2021-11-28 14:41] LABS: ALBUMIN 3.4 g/dl (3.4-5.0); BILIRUBIN,TOTAL 0.3 mg/dL (0.2-1); BLOOD UREA NITROGEN 11.8 mg/dL (7-18); CREATININE 0.6 mg/dL (0.55-1.3); TOT PROT 5.7 g/dl (6.4-8.2)
[2021-11-28] MEDS ORDERED: POTASSIUM CHLORIDE ORAL LIQUID 20 MEQ/15 ML PO ONE ×2 (17:30→21:30)
[2021-11-28] MEDS: hydrOXYzine PAMOATE 50 MG CAPSULE (FP) PO PRN ×2 (17:52→22:50)
[2021-11-28] MEDS: LORazepam 1 MG TABLET PO PRN ×2 (17:52→22:48)
[2021-11-28] MEDS: THIAMINE HCL 100 MG TABLET (FP) PO SCH (22:48)
[2021-11-28] MEDS: traZODone HCL 50 MG TABLET (FP) PO SCH (22:48)
[2021-11-28] MEDS: MELATONIN 5 MG TABLETS PO PRN (22:48)
[2021-11-29] MEDS: cloNIDine HCL 0.1 MG TABLET PO PRN ×2 (02:30→10:48)
[2021-11-29] MEDS ORDERED: methaDONE HCL 10 MG TABLET (FOR DETOX USE ONLY) PO ONE (10:00)
[2021-11-29] MEDS: SERTRALINE HCL 50 MG TABLET (FP) PO SCH (10:44)
[2021-11-29] MEDS: PRENATAL VITAMINS W/ FOLIC ACID TABLET (FP) PO SCH (10:44)
[2021-11-29] MEDS: METHOCARBAMOL 500 MG TABLET PO PRN ×2 (10:44→17:36)
[2021-11-29] MEDS: LORazepam 0.5 MG TABLET PO PRN ×2 (13:15→17:36)
[2021-11-29] MEDS: hydrOXYzine PAMOATE 50 MG CAPSULE (FP) PO PRN ×2 (17:36→22:43)
[2021-11-29] MEDS: MELATONIN 5 MG TABLETS PO PRN (22:43)
[2021-11-29] MEDS: traZODone HCL 50 MG TABLET (FP) PO SCH (22:43)
[2021-11-29] MEDS: THIAMINE HCL 100 MG TABLET (FP) PO SCH (22:43)
[2021-11-30] MEDS: hydrOXYzine PAMOATE 50 MG CAPSULE (FP) PO PRN ×3 (03:08→22:24)
[2021-11-30] MEDS: METHOCARBAMOL 500 MG TABLET PO PRN ×2 (03:09→09:48)
[2021-11-30] MEDS ORDERED: methaDONE HCL 10 MG TABLET (FOR DETOX USE ONLY) ONE (09:21)
[2021-11-30] MEDS: SERTRALINE HCL 50 MG TABLET (FP) PO SCH (09:47)
[2021-11-30] MEDS: PRENATAL VITAMINS W/ FOLIC ACID TABLET (FP) PO SCH (09:48)
[2021-11-30] MEDS: diazePAM 5 MG TABLET PO PRN ×2 (11:10→17:55)
[2021-11-30] MEDS: traZODone HCL 50 MG TABLET (FP) PO SCH (22:22)
[2021-11-30] MEDS: THIAMINE HCL 100 MG TABLET (FP) PO SCH (22:22)
[2021-12-01] MEDS: diazePAM 5 MG TABLET PO PRN ×2 (01:24→10:30)
[2021-12-01 06:55] VITALS: BP 87/53; PULSE 60; TEMP 96.9
[2021-12-01] MEDS ORDERED: methaDONE HCL 10 MG TABLET (FOR DETOX USE ONLY) PO ONE (10:00)
[2021-12-01] MEDS: SERTRALINE HCL 50 MG TABLET (FP) PO SCH (10:28)
[2021-12-01] MEDS: PRENATAL VITAMINS W/ FOLIC ACID TABLET (FP) PO SCH (10:28)
[2021-12-01] MEDS: METHOCARBAMOL 500 MG TABLET PO PRN (10:31)
== END 2021-12-01 11:39 | disposition home or self-care (01) | DRG 773 ==
LOC: YASAS 16:52 → Y6N 19:34
PROVIDERS: ADMIT Allergy & Immunology; ATTEND Allergy & Immunology
PROC: HZ2ZZZZ Detoxification Services for Substance Abuse Treatment (ICD-10-PCS; principal; 2021-11-27)
DX: F11.23 Opioid dependence with withdrawal (principal); F12.20 Cannabis dependence, uncomplicated; F19.24 Other psychoactive substance dependence with psychoactive substance-induced mood disorder; F41.9 Anxiety disorder, unspecified; F43.10 Post-traumatic stress disorder, unspecified; Z87.19 Personal history of other diseases of the digestive system; Z87.891 Personal history of nicotine dependence; Z91.19 Patient's noncompliance with other medical treatment and regimen
CPT/HCPCS: 36415; 80053; 81025; 85027; 86780; C9803; J0735; U0003; U0005

== ENCOUNTER 2022-05-24 09:54 | Inpatient (IN) | payer SELFPAY ==
[2022-05-24] MEDS ORDERED: IBUPROFEN 600 MG TABLET (FP) PO PRN (12:19)
[2022-05-24] MEDS ORDERED: MAGNESIUM HYDROX 2400MG/30ML ORAL SUSPENSION 30 ML CUP PO PRN (12:19)
[2022-05-24] MEDS ORDERED: chlordiazePOXIDE HCL 25 MG CAPSULE PO PRN (12:19)
[2022-05-24] MEDS ORDERED: MAGNESIUM CITRATE 300 ML BOTTLE PO PRN (12:19)
[2022-05-24] MEDS ORDERED: MAG HYDROX/AL HYDROX/SIMETH 30 ML UNIT-DOSE CUP PO PRN (12:19)
[2022-05-24] MEDS ORDERED: IBUPROFEN 400 MG TABLET (FP) PO PRN (12:19)
[2022-05-24] MEDS ORDERED: NICOTINE 10 MG CARTRIDGE (INHALER) IH PRN (12:19)
[2022-05-24] MEDS ORDERED: cloNIDine HCL 0.1 MG TABLET PO PRN (12:19)
[2022-05-24] MEDS ORDERED: BENZOCAINE/MENTHOL (CHLORASEPTIC ) LOZENGE MM PRN (12:19)
[2022-05-24] MEDS ORDERED: LOPERAMIDE HCL 2 MG CAPSULE PO PRN (12:19)
[2022-05-24] MEDS ORDERED: methaDONE HCL 10 MG TABLET (FOR DETOX USE ONLY) PO ONE (12:19)
[2022-05-24] MEDS ORDERED: ONDANSETRON *ODT* 4 MG TABLET SL PRN (12:19)
[2022-05-24] MEDS ORDERED: ACETAMINOPHEN 325 MG TABLET (FP) PO PRN ×2 (12:19)
[2022-05-24] MEDS ORDERED: BISMUTH SUBSALICYLATE 262 MG/15 ML BTL PO PRN (12:19)
[2022-05-24] MEDS ORDERED: DICYCLOMINE HCL 10 MG CAPSULE PO PRN (12:19)
[2022-05-24] MEDS: PRENATAL VITAMINS W/ FOLIC ACID TABLET (FP) PO SCH (12:50)
[2022-05-24] MEDS: hydrOXYzine PAMOATE 25 MG CAPSULE (FP) PO SCH ×3 (13:03→22:04)
[2022-05-24 14:38] VITALS: BMI 2961.5
[2022-05-24] MEDS: diazePAM 5 MG TABLET PO PRN ×2 (15:13→20:11)
[2022-05-24 15:42] LABS: HEMATOCRIT 35.5 % (32.4-45.2); HEMOGLOBIN 12.4 GM/dL (10.7-15.3); MCH 33.1 pg (25.7-33.7); MCHC 34.9 g/dl (32.0-36.0); MEAN CELL VOLUME 94.6 fl (80-96); MEAN PLT VOLUME 6.8 fl (7.5-11.1); PLATELET COUNT 281 10^3/uL (134-434); RBC 3.75 M/mm3 (3.60-5.2); WHITE BLOOD COUNT 5.3 K/mm3 (4.0-10.0)
[2022-05-24 15:45] LABS: ALBUMIN 3.6 g/dl (3.4-5.0); CALCIUM 8.8 mg/dL (8.5-10.1)
[2022-05-24 15:46] LABS: BLOOD UREA NITROGEN 10.7 mg/dL (7-18)
[2022-05-24 15:49] LABS: CREATININE 0.7 mg/dL (0.55-1.3)
[2022-05-24 15:50] LABS: BILIRUBIN,TOTAL 0.3 mg/dL (0.2-1); TOT PROT 6.8 g/dl (6.4-8.2)
[2022-05-24] MEDS ORDERED: chlordiazePOXIDE HCL 25 MG CAPSULE PO SCH (17:00)
[2022-05-24] MEDS: diazePAM 5 MG TABLET PO SCH ×2 (18:17→22:04)
[2022-05-24] MEDS: METHOCARBAMOL 500 MG TABLET PO PRN (18:17)
[2022-05-24] MEDS: THIAMINE HCL 100 MG TABLET (FP) PO SCH (22:04)
[2022-05-24] MEDS: MELATONIN 5 MG TABLETS PO SCH (22:04)
[2022-05-24] MEDS: traZODone HCL 100 MG TABLET (FP) PO SCH (22:04)
[2022-05-25] MEDS: diazePAM 5 MG TABLET PO SCH ×4 (05:06→22:18)
[2022-05-25] MEDS: hydrOXYzine PAMOATE 25 MG CAPSULE (FP) PO SCH ×5 (05:06→22:18)
[2022-05-25] MEDS: PRENATAL VITAMINS W/ FOLIC ACID TABLET (FP) PO SCH (10:31)
[2022-05-25] MEDS: METHOCARBAMOL 500 MG TABLET PO PRN (17:36)
[2022-05-25] MEDS: THIAMINE HCL 100 MG TABLET (FP) PO SCH (22:18)
[2022-05-25] MEDS: MELATONIN 5 MG TABLETS PO SCH (22:18)
[2022-05-25] MEDS: traZODone HCL 100 MG TABLET (FP) PO SCH (22:18)
[2022-05-26] MEDS ORDERED: chlordiazePOXIDE HCL 25 MG CAPSULE PO SCH (05:00)
[2022-05-26] MEDS: hydrOXYzine PAMOATE 25 MG CAPSULE (FP) PO SCH ×4 (07:44→21:23)
[2022-05-26] MEDS: diazePAM 5 MG TABLET PO SCH ×3 (07:44→22:25)
[2022-05-26] MEDS ORDERED: methaDONE HCL 10 MG TABLET (FOR DETOX USE ONLY) PO ONE (10:00)
[2022-05-26] MEDS: PRENATAL VITAMINS W/ FOLIC ACID TABLET (FP) PO SCH (10:07)
[2022-05-26] MEDS: traZODone HCL 100 MG TABLET (FP) PO SCH (22:24)
[2022-05-26] MEDS: THIAMINE HCL 100 MG TABLET (FP) PO SCH (22:25)
[2022-05-26] MEDS: MELATONIN 5 MG TABLETS PO SCH (22:26)
[2022-05-27] MEDS ORDERED: chlordiazePOXIDE HCL 10 MG CAPSULE PO PRN
[2022-05-27] MEDS: hydrOXYzine PAMOATE 25 MG CAPSULE (FP) PO SCH ×3 (00:26→10:53)
[2022-05-27] MEDS ORDERED: chlordiazePOXIDE HCL 10 MG CAPSULE PO SCH (05:00)
[2022-05-27] MEDS ORDERED: diazePAM 5 MG TABLET PO SCH (06:00)
[2022-05-27] MEDS: PRENATAL VITAMINS W/ FOLIC ACID TABLET (FP) PO SCH (10:49)
[2022-05-27 13:09] VITALS: BP 114/56; PULSE 100; RESP 20; TEMP 98.1
[2022-05-28] MEDS ORDERED: chlordiazePOXIDE HCL 10 MG CAPSULE PO SCH (05:00)
[2022-05-28] MEDS ORDERED: diazePAM 5 MG TABLET PO ONE (06:00)
[2022-05-28] MEDS ORDERED: methaDONE HCL 10 MG TABLET (FOR DETOX USE ONLY) PO ONE (10:00)
[2022-05-29] MEDS ORDERED: chlordiazePOXIDE HCL 10 MG CAPSULE PO ONE (05:00)
== END 2022-05-27 01:47 | disposition left against medical advice (07) | DRG 770 ==
LOC: YASAS 09:54 → SUATTDRO 09:54 → Y6N 12:33
PROVIDERS: ADMIT Allergy & Immunology; ATTEND Surgery
PROC: HZ2ZZZZ Detoxification Services for Substance Abuse Treatment (ICD-10-PCS; principal; 2022-05-24)
DX: F11.23 Opioid dependence with withdrawal (principal); F13.20 Sedative, hypnotic or anxiolytic dependence, uncomplicated; F12.20 Cannabis dependence, uncomplicated; F17.210 Nicotine dependence, cigarettes, uncomplicated; F19.282 Other psychoactive substance dependence with psychoactive substance-induced sleep disorder; F19.280 Other psychoactive substance dependence with psychoactive substance-induced anxiety disorder; F19.24 Other psychoactive substance dependence with psychoactive substance-induced mood disorder; F34.1 Dysthymic disorder; F43.10 Post-traumatic stress disorder, unspecified; Z28.310 Unvaccinated for COVID-19
CPT/HCPCS: 36415; 80053; 81025; 85027; 86780; C9803-CS; U0003; U0005

== ENCOUNTER 2022-08-25 09:06 | Inpatient (IN) | payer BC ==
[2022-08-25 10:57] VITALS: BMI 23.4
[2022-08-25] MEDS ORDERED: IBUPROFEN 600 MG TABLET (FP) PO PRN (11:41)
[2022-08-25] MEDS ORDERED: BISMUTH SUBSALICYLATE 524 MG/30 ML PO PRN (11:41)
[2022-08-25] MEDS ORDERED: MAGNESIUM HYDROX 2400MG/30ML ORAL SUSPENSION 30 ML CUP PO PRN (11:41)
[2022-08-25] MEDS ORDERED: DICYCLOMINE HCL 10 MG CAPSULE PO PRN (11:41)
[2022-08-25] MEDS ORDERED: BENZOCAINE/MENTHOL (CHLORASEPTIC ) LOZENGE MM PRN (11:41)
[2022-08-25] MEDS ORDERED: LOPERAMIDE HCL 2 MG CAPSULE PO PRN (11:41)
[2022-08-25] MEDS ORDERED: IBUPROFEN 400 MG TABLET (FP) PO PRN (11:41)
[2022-08-25] MEDS ORDERED: MAG HYDROX/AL HYDROX/SIMETH 30 ML UNIT-DOSE CUP PO PRN (11:41)
[2022-08-25] MEDS ORDERED: NALOXONE HCL (KLOXXADO) 8 MG SPRAY NS PRN (11:41)
[2022-08-25] MEDS ORDERED: ACETAMINOPHEN 325 MG TABLET (FP) PO PRN ×2 (11:41)
[2022-08-25] MEDS ORDERED: methaDONE HCL 10 MG TABLET (FOR DETOX USE ONLY) PO ONE (12:30)
[2022-08-25] MEDS ORDERED: diazePAM 5 MG TABLET ONE (12:36)
[2022-08-25] MEDS ORDERED: methaDONE HCL 10 MG TABLET (FOR DETOX USE ONLY) ONE (12:36)
[2022-08-25] MEDS: diazePAM 5 MG TABLET PO SCH ×3 (12:46→22:29)
[2022-08-25] MEDS: diazePAM 5 MG TABLET PO PRN (15:09)
[2022-08-25] MEDS: cloNIDine HCL 0.1 MG TABLET PO PRN (22:28)
[2022-08-25] MEDS: THIAMINE HCL 100 MG TABLET (FP) PO SCH (22:29)
[2022-08-25] MEDS: traZODone HCL 50 MG TABLET (FP) PO SCH (22:29)
[2022-08-25] MEDS: MELATONIN 5 MG TABLETS PO SCH (23:15)
[2022-08-26] MEDS: diazePAM 5 MG TABLET PO SCH ×4 (05:50→22:53)
[2022-08-26] MEDS: PRENATAL VITAMINS W/ FOLIC ACID TABLET (FP) PO SCH (10:11)
[2022-08-26] MEDS: METHOCARBAMOL 500 MG TABLET PO PRN (10:11)
[2022-08-26] MEDS: cloNIDine HCL 0.1 MG TABLET PO PRN (10:15)
[2022-08-26] MEDS: diazePAM 5 MG TABLET PO PRN ×2 (13:05→19:52)
[2022-08-26] MEDS: THIAMINE HCL 100 MG TABLET (FP) PO SCH (22:52)
[2022-08-26] MEDS: traZODone HCL 50 MG TABLET (FP) PO SCH (22:52)
[2022-08-26] MEDS: MELATONIN 5 MG TABLETS PO SCH (22:52)
[2022-08-27] MEDS: diazePAM 5 MG TABLET PO SCH ×2 (06:07→14:03)
[2022-08-27 09:06] VITALS: RESP 20
[2022-08-27] MEDS ORDERED: methaDONE HCL 10 MG TABLET (FOR DETOX USE ONLY) PO ONE (10:00)
[2022-08-27] MEDS: PRENATAL VITAMINS W/ FOLIC ACID TABLET (FP) PO SCH (10:22)
[2022-08-27] MEDS: METHOCARBAMOL 500 MG TABLET PO PRN (10:22)
[2022-08-27 13:39] VITALS: BP 117/77; PULSE 117; TEMP 98.1
[2022-08-28] MEDS ORDERED: diazePAM 5 MG TABLET PO SCH (06:00)
[2022-08-29] MEDS ORDERED: diazePAM 5 MG TABLET PO ONE (06:00)
[2022-08-29] MEDS ORDERED: methaDONE HCL 10 MG TABLET (FOR DETOX USE ONLY) PO ONE (10:00)
== END 2022-08-27 13:20 | disposition left against medical advice (07) | DRG 770 ==
LOC: YASAS 09:06 → Y3N 11:03 → Y6N 12:17
PROVIDERS: ADMIT Allergy & Immunology; ATTEND Surgery
PROC: HZ2ZZZZ Detoxification Services for Substance Abuse Treatment (ICD-10-PCS; principal; 2022-08-25)
DX: F11.23 Opioid dependence with withdrawal (principal); F13.20 Sedative, hypnotic or anxiolytic dependence, uncomplicated; F12.20 Cannabis dependence, uncomplicated; F17.210 Nicotine dependence, cigarettes, uncomplicated; F19.282 Other psychoactive substance dependence with psychoactive substance-induced sleep disorder; F19.24 Other psychoactive substance dependence with psychoactive substance-induced mood disorder; F32.A Depression, unspecified; F43.10 Post-traumatic stress disorder, unspecified; I95.9 Hypotension, unspecified; G56.31 Lesion of radial nerve, right upper limb; K21.9 Gastro-esophageal reflux disease without esophagitis; Y04.0XXA Assault by unarmed brawl or fight, initial encounter; Y93.89 Activity, other specified; Y92.232 Corridor of hospital as the place of occurrence of the external cause; Z28.310 Unvaccinated for COVID-19; Z28.9 Immunization not carried out for unspecified reason
CPT/HCPCS: 36415; 80053; 81025; 85027; 86780; C9803-CS; U0003; U0005

== ENCOUNTER 2023-01-05 14:18 | Inpatient (IN) | payer BC ==
[2023-01-05 14:46] VITALS: BMI 26.2
[2023-01-05] MEDS ORDERED: MAG HYDROX/AL HYDROX/SIMETH 30 ML UNIT-DOSE CUP PO PRN (16:33)
[2023-01-05] MEDS ORDERED: BENZONATATE 200 MG CAPSULE PO PRN (16:33)
[2023-01-05] MEDS ORDERED: IBUPROFEN 400 MG TABLET (FP) PO PRN (16:33)
[2023-01-05] MEDS ORDERED: guaiFENesin 600 MG TABLET.ER (FP) PO PRN (16:33)
[2023-01-05] MEDS ORDERED: POLYETHYLENE GLYCOL (HEALTHYLAX) 3350 17 GM PACKET PO PRN (16:33)
[2023-01-05] MEDS ORDERED: DICYCLOMINE HCL 10 MG CAPSULE PO PRN (16:33)
[2023-01-05] MEDS ORDERED: LOPERAMIDE HCL 2 MG CAPSULE PO PRN (16:33)
[2023-01-05] MEDS ORDERED: BENZOCAINE/MENTHOL (CHLORASEPTIC ) LOZENGE MM PRN (16:33)
[2023-01-05] MEDS ORDERED: NALOXONE HCL 0.4 MG/ML VIAL IM PRN (16:33)
[2023-01-05] MEDS ORDERED: BISMUTH SUBSALICYLATE 524 MG/30 ML PO PRN (16:33)
[2023-01-05] MEDS ORDERED: NALOXONE HCL (KLOXXADO) 8 MG SPRAY NS PRN (16:33)
[2023-01-05] MEDS ORDERED: MAGNESIUM HYDROX 2400MG/30ML ORAL SUSPENSION 30 ML CUP PO PRN (16:33)
[2023-01-05] MEDS ORDERED: ACETAMINOPHEN 325 MG TABLET (FP) PO PRN (16:33)
[2023-01-05] MEDS: diazePAM 5 MG TABLET PO PRN (17:00)
[2023-01-05] MEDS ORDERED: diazePAM 5 MG TABLET ONE (17:01)
[2023-01-05] MEDS: METHOCARBAMOL 500 MG TABLET PO PRN (19:30)
[2023-01-05] MEDS: THIAMINE HCL 100 MG TABLET (FP) PO SCH (22:08)
[2023-01-05] MEDS: MELATONIN 5 MG TABLETS PO SCH (22:08)
[2023-01-05] MEDS: diazePAM 5 MG TABLET PO SCH (22:09)
[2023-01-05] MEDS: hydrOXYzine PAMOATE 25 MG CAPSULE (FP) PO PRN (22:10)
[2023-01-06] MEDS: diazePAM 5 MG TABLET PO PRN ×2 (02:30→16:01)
[2023-01-06] MEDS: ONDANSETRON *ODT* 4 MG TABLET SL PRN ×2 (02:33→10:31)
[2023-01-06] MEDS: diazePAM 5 MG TABLET PO SCH ×4 (05:55→22:24)
[2023-01-06] MEDS ORDERED: TRIMETHOBENZAMIDE HCL 200MG/2ML INJ IM PRN (07:25)
[2023-01-06] MEDS: PRENATAL VITAMINS W/ FOLIC ACID TABLET (FP) PO SCH (10:29)
[2023-01-06] MEDS: methaDONE HCL 40 MG DISPERSABLE TABLET PO SCH (10:29)
[2023-01-06 11:47] LABS: HEMATOCRIT 36.1 % (32.4-45.2); HEMOGLOBIN 12.5 GM/dL (10.7-15.3); MCH 30.1 pg (25.7-33.7); MCHC 34.6 g/dl (32.0-36.0); MEAN CELL VOLUME 86.9 fl (80-96); MEAN PLT VOLUME 7.2 fl (7.5-11.1); PLATELET COUNT 308 10^3/uL (134-434); RBC 4.15 M/mm3 (3.60-5.2); RDW 14.4 % (11.6-15.6); WHITE BLOOD COUNT 6.3 K/mm3 (4.0-10.0)
[2023-01-06 11:56] LABS: CREATININE 0.7 mg/dL (0.55-1.3)
[2023-01-06 11:57] LABS: CALCIUM 8.6 mg/dL (8.5-10.1)
[2023-01-06 11:58] LABS: ALBUMIN 3.8 g/dl (3.4-5.0); BLOOD UREA NITROGEN 9.3 mg/dL (7-18); TOT PROT 6.9 g/dl (6.4-8.2)
[2023-01-06 11:59] LABS: BILIRUBIN,TOTAL 0.8 mg/dL (0.2-1)
[2023-01-06] MEDS: MELATONIN 5 MG TABLETS PO SCH (22:24)
[2023-01-06] MEDS: traZODone HCL 50 MG TABLET (FP) PO SCH (22:24)
[2023-01-06] MEDS: THIAMINE HCL 100 MG TABLET (FP) PO SCH (22:24)
[2023-01-06] MEDS: IBUPROFEN 600 MG TABLET (FP) PO PRN (22:25)
[2023-01-06] MEDS: METHOCARBAMOL 500 MG TABLET PO PRN (22:25)
[2023-01-07] MEDS: diazePAM 5 MG TABLET PO SCH ×3 (05:38→22:30)
[2023-01-07] MEDS: methaDONE HCL 40 MG DISPERSABLE TABLET PO SCH (05:39)
[2023-01-07] MEDS: PRENATAL VITAMINS W/ FOLIC ACID TABLET (FP) PO SCH (10:32)
[2023-01-07] MEDS ORDERED: methaDONE HCL 40 MG DISPERSABLE TABLET PO ONE (10:55)
[2023-01-07] MEDS: ONDANSETRON *ODT* 4 MG TABLET SL PRN (11:19)
[2023-01-07] MEDS: IBUPROFEN 600 MG TABLET (FP) PO PRN (14:11)
[2023-01-07] MEDS: diazePAM 5 MG TABLET PO PRN (19:02)
[2023-01-07] MEDS: THIAMINE HCL 100 MG TABLET (FP) PO SCH (22:29)
[2023-01-07] MEDS: traZODone HCL 50 MG TABLET (FP) PO SCH (22:29)
[2023-01-07] MEDS: MELATONIN 5 MG TABLETS PO SCH (22:29)
[2023-01-07] MEDS: METHOCARBAMOL 500 MG TABLET PO PRN (22:31)
[2023-01-08] MEDS: diazePAM 5 MG TABLET PO SCH ×2 (05:28→17:49)
[2023-01-08] MEDS: methaDONE HCL 40 MG DISPERSABLE TABLET PO SCH (10:36)
[2023-01-08] MEDS: PRENATAL VITAMINS W/ FOLIC ACID TABLET (FP) PO SCH (10:36)
[2023-01-08] MEDS: diazePAM 5 MG TABLET PO PRN (13:45)
[2023-01-08] MEDS: hydrOXYzine PAMOATE 25 MG CAPSULE (FP) PO PRN (22:32)
[2023-01-08] MEDS: traZODone HCL 50 MG TABLET (FP) PO SCH (22:32)
[2023-01-08] MEDS: MELATONIN 5 MG TABLETS PO SCH (22:32)
[2023-01-08] MEDS: METHOCARBAMOL 500 MG TABLET PO PRN (22:33)
[2023-01-08] MEDS: THIAMINE HCL 100 MG TABLET (FP) PO SCH (22:33)
[2023-01-09] MEDS ORDERED: diazePAM 5 MG TABLET PO ONE (06:00)
[2023-01-09 06:24] VITALS: TEMP 97.8
[2023-01-09] MEDS: PRENATAL VITAMINS W/ FOLIC ACID TABLET (FP) PO SCH (10:00)
[2023-01-09] MEDS: methaDONE HCL 40 MG DISPERSABLE TABLET PO SCH (10:00)
[2023-01-09 10:25] VITALS: BP 98/60; PULSE 84; RESP 20
== END 2023-01-09 10:15 | disposition home or self-care (01) | DRG 773 ==
LOC: YASAS 14:18 → Y3N 15:25
PROVIDERS: ADMIT Allergy & Immunology; ATTEND Surgery
PROC: HZ2ZZZZ Detoxification Services for Substance Abuse Treatment (ICD-10-PCS; principal; 2023-01-05)
DX: F13.230 Sedative, hypnotic or anxiolytic dependence with withdrawal, uncomplicated (principal); F11.20 Opioid dependence, uncomplicated; F12.20 Cannabis dependence, uncomplicated; F41.9 Anxiety disorder, unspecified; F32.A Depression, unspecified; F43.10 Post-traumatic stress disorder, unspecified; F51.05 Insomnia due to other mental disorder; I95.9 Hypotension, unspecified; K21.9 Gastro-esophageal reflux disease without esophagitis; Z28.310 Unvaccinated for COVID-19; Z28.21 Immunization not carried out because of patient refusal
CPT/HCPCS: 36415; 80053; 81025; 85027; 86780; C9803-CS; Q0162; U0003; U0005